=== PATIENT | male | born 1970 | race Caucasian/White ===

== ENCOUNTER 2018-05-30 18:27 | Emergency (ER) | payer MEDICARE, OTHER ==
[2018-05-30 18:33] VITALS: TEMP 98
--- NOTE | 2018-05-30 19:11 | ED ---
General Adult HPI <RonSheldon - Last Filed: 05/30/18 20:37> - General Source: patient, RN notes reviewed Mode of arrival: ambulatory Limitations: no limitations <Malena Johnson - Last Filed: 05/30/18 21:26> - General Chief complaint: Wound/Laceration Stated complaint: fall, facial injury - History of Present Illness Initial comments: Patient is a 47-year-old male who presents to the emergency department with complaint of facial lacerations after tripping and hitting his face on a table at 4 or 5 pm today. Denies loss of consciousness or blood thinner use. Denies additional injuries. He does not know when his last tetanus vaccination was done. Patient denies any recent fever, chills, shortness of breath, chest pain, neck pain, back pain, abdominal pain, nausea or vomiting, numbness or tingling, headaches or visual changes, or any other complaints. (Malena Johnson) - Related Data Home Medications Medication Instructions Recorded Confirmed Benztropine Mesylate [Cogentin] 1 mg PO DAILY 02/19/14 02/20/14 Cetirizine HCl [Zyrtec] 10 mg PO AC-SUPPER 02/19/14 02/20/14 Citalopram Hydrobromide [CeleXA] 20 mg PO AC-SUPPER 02/19/14 02/20/14 Diphenox-Atrop 2.5-0.025 mg 1 tab PO HS PRN 02/19/14 02/19/14 [Lomotil] Divalproex ER [Depakote ER] 1,000 mg PO AC-SUPPER 02/19/14 02/20/14 Losartan/Hydrochlorothiazide 1 each PO DAILY 02/19/14 02/20/14 [Losartan-Hctz 100-12.5 mg Tab] Melatonin 1 mg PO HS 02/19/14 02/20/14 Omeprazole 40 mg PO BID 02/19/14 02/20/14 risperiDONE 3 mg PO AC-SUPPER 02/19/14 02/20/14 Allergies Allergy/AdvReac Type Severity Reaction Status Date / Time acetaminophen Allergy Rash/Hives Verified 05/30/18 18:31 [From Darvocet-N] hydrocodone bitartrate Allergy Rash/Hives Verified 05/30/18 18:31 [From Vicodin] propoxyphene napsylate Allergy Rash/Hives Verified 05/30/18 18:31 [From Darvocet-N] Review of Systems ROS Other: All systems not noted in ROS Statement are negative. <Sheldon Velasquez - Last Filed: 05/30/18 20:37> ROS Other: All systems not noted in ROS Statement are negative. <Malena Johnson - Last Filed: 05/30/18 21:26> ROS Statement: Those systems with pertinent positive or pertinent negative responses have been documented in the HPI. Past Medical History Past Medical History: GERD/Reflux, Hypertension, Sleep Apnea/CPAP/BIPAP History of Any Multi-Drug Resistant Organisms: None Reported Past Surgical History: Orthopedic Surgery Additional Past Surgical History / Comment(s): lt hip and knee surgery as a child Past Anesthesia/Blood Transfusion Reactions: No Reported Reaction Past Psychological History: Bipolar Smoking Status: Former smoker Past Alcohol Use History: None Reported Past Drug Use History: None Reported <Malena Johnson - Last Filed: 05/30/18 21:26> General Exam Limitations: no limitations General appearance: alert, in no apparent distress Head exam: Present: other (Two lacerations to upper lip. Avulsion of nose tip.) Eye exam: Present: normal appearance, PERRL, EOMI ENT exam: Present: normal oropharynx, TM's normal bilaterally, normal external ear exam, other (No septal hematoma.) Neck exam: Present: normal inspection, full ROM. Absent: tenderness Respiratory exam: Present: normal lung sounds bilaterally. Absent: wheezes, rales, rhonchi Cardiovascular Exam: Present: regular rate, normal rhythm Extremities exam: Present: other (Upper and lower extremities' strength 5/5.) Back exam: Absent: tenderness Neurological exam: Present: alert, oriented X3, CN II-XII intact <Malena Johnson - Last Filed: 05/30/18 21:26> Vital Signs 05/30/18 18:31 Temperature 98 F Pulse Rate 105 H Respiratory 18 Rate Blood Pressure 132/93 O2 Sat by Pulse 96 Oximetry Medical Decision Making <Sheldon Velasquez - Last Filed: 05/30/18 20:37> <Malena Johnson - Last Filed: 05/30/18 21:26> - Medical Decision Making Medical decision making; a 47-year-old male reports that he has slip and fall and landed on a glass table with his nose. He states the glass table did not break. The patient has multiple lacerations with a flap-type laceration, possible avulsed tissue on the tip of his nose as well as laceration through the vermilion border to the right side of the columella. Teeth appear to be intact. CAT scan of the facial bones negative. The patient will receive 1 g of Ancef IM and tetanus updated. The case discussed with Dr. Tobar at [facility]. she accepts the patient for evaluation and treatment by ENT or plastics. Dr. Velasquez (Sheldon Velasquez) Facial bone CT is negative for fracture. Given ibuprofen here for pain. Wounds were injected with lidocaine and irrigated. Case discussed in detail with attending physician Dr. Velasquez. (Malena Johnson) Disposition <Sheldon Velasquez - Last Filed: 05/30/18 20:37> Is patient prescribed a controlled substance at d/c from ED?: No - Out of Hospital Transfer - Req. Specs Out of Hospital Transfer - Requested Specifics: Other Emergency Center ([facility]) <Malena Johnson - Last Filed: 05/30/18 21:26> Clinical Impression: Laceration Disposition: OTHER INSTITUTION NOT DEFINED Condition: Good Referrals: [facility] [Primary Care Provider] - 1-2 days
[2018-05-30] MEDS ORDERED: DIPH,PERTUS(ACELL)TETVAC-LF 0.5 ML VIAL IM ONE (19:12)
--- NOTE | 2018-05-30 19:26 | CT ---
EXAMINATION TYPE: CT facial bones wo con DATE OF EXAM: 05/30/2018 COMPARISON: None HISTORY: Fell hitting nose on table. CT DLP: 564.3 mGycm Automated exposure control for dose reduction was used. TECHNIQUE: CT scan of the sinuses is performed without contrast, axial images are obtained, coronal r eformatted images are also reviewed. FINDINGS: The orbital margins are intact. There is no evidence of a blowout fracture. There is minor mucosal thickening at the floor of the maxillary sinuses. There is bilateral patency of the ostia met al complex. The zygomatic arches are intact. Nasal bone appears intact. Maxilla is intact. The mandib ular ring is intact. Temporal bones appear normal. IMPRESSION: Negative CT scan of the facial bones. No fracture seen. Minimal mucosal thickening in the maxillary sinuses consistent with mild inflammatory disease.
[2018-05-30] MEDS ORDERED: LIDOCAINE 1% INJ 10MG/ML (20 ML MDV) SQ STA (19:30)
[2018-05-30] MEDS ORDERED: IBUPROFEN 600 MG TAB PO STA (19:30)
[2018-05-30] MEDS ORDERED: ceFAZolin 1,000 MG VIAL IM STA (20:30)
[2018-05-30 21:40] VITALS: BP 129/78; PULSE 98; RESP 16
== END 2018-05-30 21:40 | disposition short-term general hospital (02) ==
LOC: EC 18:27
DX: S01.511A Laceration without foreign body of lip, initial encounter (principal); S01.20XA Unspecified open wound of nose, initial encounter; I10 Essential (primary) hypertension; K21.9 Gastro-esophageal reflux disease without esophagitis; G47.30 Sleep apnea, unspecified; F31.9 Bipolar disorder, unspecified; Z87.891 Personal history of nicotine dependence; Z88.5 Allergy status to narcotic agent; Z88.6 Allergy status to analgesic agent; Z79.899 Other long term (current) drug therapy; Z23 Encounter for immunization; Z99.89 Dependence on other enabling machines and devices; W01.190A Fall on same level from slipping, tripping and stumbling with subsequent striking against furniture, initial encounter; Y92.009 Unspecified place in unspecified non-institutional (private) residence as the place of occurrence of the external cause
CPT/HCPCS: 70486; 90715; 99284; 96372; 90471; J0690; J2001

== ENCOUNTER 2019-03-25 16:09 | Inpatient (IN) | payer MEDICARE, OTHER ==
--- NOTE | 2019-03-25 16:45 | ED ---
Abdominal Pain HPI - General Source: patient Mode of arrival: ambulatory Limitations: no limitations <Jamila Badillo - Last Filed: 03/25/19 19:59> <Connie Mendez - Last Filed: 03/26/19 23:29> - General Chief Complaint: Abdominal Pain Stated Complaint: hernia pain Time Seen by Provider: 03/25/19 16:23 - History of Present Illness Initial Comments: 48-year-old male presenting today for chief complaint of right inguinal pain. Patient states about a week ago he lifted something heavy at work any experiencing onset of right groin pain. Patient states at times at hernia was smaller then enlarged again causing right inguinal pain. Patient states at time it causes his right testicle to swelling, denies testicular pain or current swelling. Patient denies fevers. Patient states he usually has daily bowel movements however has not had one since Monday he states prior to Monday he had 3 days of diarrhea. Patient denies vomiting, fever. When pain persisted today he was concerned and presented to the ER. He states his sister told him he had what she thought was a hernia. Remaining ROS (-). (Jamila Badillo) - Related Data Home Medications Medication Instructions Recorded Confirmed Benztropine Mesylate [Cogentin] 1 mg PO DAILY 02/19/14 03/25/19 Citalopram Hydrobromide [CeleXA] 20 mg PO AC-SUPPER 02/19/14 03/25/19 Divalproex ER [Depakote ER] 500 mg PO AC-SUPPER 02/19/14 03/25/19 Melatonin 1 mg PO HS 02/19/14 03/25/19 Omeprazole 40 mg PO DAILY 02/19/14 03/25/19 risperiDONE 3 mg PO AC-SUPPER 02/19/14 03/25/19 Cholecalciferol [Vitamin D3 (25 5,000 unit PO DAILY 03/25/19 03/25/19 Mcg = 1000 Iu)] Divalproex ER [Depakote ER] 250 mg PO HS 03/25/19 03/25/19 Docusate [Colace] 100 mg PO DAILY PRN 03/25/19 03/25/19 Ibuprofen [Motrin] 400 mg PO Q4H PRN 03/25/19 03/25/19 Lisinopril [Zestril] 10 mg PO DAILY 03/25/19 03/25/19 Loratadine [Claritin] 10 mg PO DAILY 03/25/19 03/25/19 Allergies Allergy/AdvReac Type Severity Reaction Status Date / Time acetaminophen Allergy Rash/Hives Verified 03/25/19 18:57 [From Darvocet-N] hydrocodone bitartrate Allergy Rash/Hives Verified 03/25/19 18:57 [From Vicodin] propoxyphene napsylate Allergy Rash/Hives Verified 03/25/19 18:57 [From Darvocet-N] Review of Systems ROS Other: All systems not noted in ROS Statement are negative. <Jamila Badillo - Last Filed: 03/25/19 19:59> ROS Other: All systems not noted in ROS Statement are negative. <Connie Mendez - Last Filed: 03/26/19 23:29> ROS Statement: Those systems with pertinent positive or pertinent negative responses have been documented in the HPI. Past Medical History Past Medical History: GERD/Reflux, Hypertension, Sleep Apnea/CPAP/BIPAP History of Any Multi-Drug Resistant Organisms: None Reported Past Surgical History: Orthopedic Surgery Additional Past Surgical History / Comment(s): lt hip and knee surgery as a child Past Anesthesia/Blood Transfusion Reactions: No Reported Reaction Past Psychological History: Bipolar Smoking Status: Former smoker Past Alcohol Use History: None Reported Past Drug Use History: None Reported <Jamila Badillo - Last Filed: 03/25/19 19:59> General Exam Limitations: no limitations <Jamila Badillo - Last Filed: 03/25/19 19:59> - General Exam Comments Initial Comments: General: The patient is awake and alert, in no distress Eye: Pupils are equal, round and reactive to light, extra-ocular movements are intact. No nystagmus. There is normal conjunctiva bilaterally. No signs of icterus. Ears, nose, mouth and throat: There are moist mucous membranes and no oral lesions. Neck: The neck is supple, there is no tenderness or JVD. Cardiovascular: There is a regular rate and rhythm. No murmur, rub or gallop is appreciated. Respiratory: Lungs are clear to auscultation, respirations are non-labored, breath sounds are equal. No wheezes, stridor, rales, or rhonchi. Gastrointestinal: Soft, non-distended, non-tender abdomen without masses or organomegaly noted. Very large right inguinal hernia appears on inguinal exam no definitive indirect vs direct was able to be deciphered.Unable to reduce the hernia. No testicular swelling. Musculoskeletal: Normal ROM, no tenderness. Strength 5/5. Sensation intact. Radial pulses equal bilaterally 2+. Neurological: A&O x 3. CN II-XII intact grossly, There are no obvious motor or sensory deficits. Coordination appears grossly intact. Speech is normal. Skin: Skin is warm and dry and no rashes or lesions are noted. Psychiatric: Cooperative, appropriate mood & affect, normal judgment. (Jamila Badillo) Course Vital Signs 03/25/19 03/25/19 03/25/19 16:17 18:15 19:16 Temperature 98.9 F 99.0 F 97.9 F Pulse Rate 80 67 70 Respiratory 18 17 18 Rate Blood Pressure 159/97 159/101 155/105 O2 Sat by Pulse 96 99 98 Oximetry 03/25/19 19:41 Temperature Pulse Rate 80 Respiratory 18 Rate Blood Pressure 150/90 O2 Sat by Pulse 99 Oximetry Medical Decision Making - Lab Data Result diagrams: 03/25/19 17:00 03/25/19 17:00 <Jamila Badillo - Last Filed: 03/25/19 19:59> - Lab Data Result diagrams: 03/25/19 17:00 03/25/19 17:00 <Connie Mendez - Last Filed: 03/26/19 23:29> - Medical Decision Making 48-year-old male presenting today for chief complaint of right inguinal pain. Evidence of a bulging area of right groin on physical examination however no jugular palpable intra-articular return to in the inguinal canal there is a defect palpable. However no distinct reducible hernia. However the patient's discomfort CT abdomen and pelvis was obtained revealing an incarcerated hernia with small bowel. patient has had changes in BM. Lactic acid WNL. Patient pain persistent. Patient evaluated in person with attending Dr. Mendez. she consulted director selection and administration surgeon Dr. Yuan who recommended admission on IV abx, fluids and pain control. Patient agreeable to admission. (Jamila Badillo) I was available for consultation in the emergency department. The history and physical exam were done by the midlevel provider. I was consulted for this patients care. I reviewed the case with the midlevel provider and based on their presentation of the patient, I agree with the assessment, medical decision making and plan of care as documented. I discussed the case with Dr. Yuan who accepted admission. Chart was dictated using lark dictation software. Attempts were made to correct any dictation errors however some typographical errors may persist. (Connie Mendez) - Lab Data Lab Results 03/25/19 03/25/19 03/25/19 Range/Units 17:00 17:00 17:55 WBC 10.8 H (3.8-10.6) k/uL RBC 5.04 (4.30-5.90) m/uL Hgb 15.0 (13.0-17.5) gm/dL Hct 44.7 (39.0-53.0) % MCV 88.8 (80.0-100.0) fL MCH 29.8 (25.0-35.0) pg MCHC 33.6 (31.0-37.0) g/dL RDW 12.6 (11.5-15.5) % Plt Count 291 (150-450) k/uL Neutrophils % 81 % Lymphocytes % 13 % Monocytes % 4 % Eosinophils % 1 % Basophils % 0 % Neutrophils # 8.7 H (1.3-7.7) k/uL Lymphocytes # 1.4 (1.0-4.8) k/uL Monocytes # 0.4 (0-1.0) k/uL Eosinophils # 0.1 (0-0.7) k/uL Basophils # 0.0 (0-0.2) k/uL Sodium 139 (137-145) mmol/L Potassium 4.4 (3.5-5.1) mmol/L Chloride 105 (98-107) mmol/L Carbon Dioxide 27 (22-30) mmol/L Anion Gap 7 mmol/L BUN 17 (9-20) mg/dL Creatinine 0.75 (0.66-1.25) mg/dL Est GFR (CKD-EPI)AfAm >90 (>60 ml/min/1.73 sqM) Est GFR (CKD-EPI)NonAf >90 (>60 ml/min/1.73 sqM) Glucose 97 (74-99) mg/dL Plasma Lactic Acid John (0.7-2.0) mmol/L Calcium 9.5 (8.4-10.2) mg/dL Total Bilirubin 0.7 (0.2-1.3) mg/dL AST 18 (17-59) U/L ALT 19 (4-49) U/L Alkaline Phosphatase 56 (38-126) U/L Total Protein 7.4 (6.3-8.2) g/dL Albumin 4.4 (3.5-5.0) g/dL Urine Color Colorless Urine Appearance Clear (Clear) Urine pH 7.0 (5.0-8.0) Ur Specific [place] 1.024 (1.001-1.035) Urine Protein Negative (Negative) Urine Glucose (UA) Negative (Negative) Urine Ketones Negative (Negative) Urine Blood Negative (Negative) Urine Nitrite Negative (Negative) Urine Bilirubin Negative (Negative) Urine Urobilinogen <2.0 (<2.0) mg/dL Ur Leukocyte Esterase Negative (Negative) 03/25/19 Range/Units 17:55 WBC (3.8-10.6) k/uL RBC (4.30-5.90) m/uL Hgb (13.0-17.5) gm/dL Hct (39.0-53.0) % MCV (80.0-100.0) fL MCH (25.0-35.0) pg MCHC (31.0-37.0) g/dL RDW (11.5-15.5) % Plt Count (150-450) k/uL Neutrophils % % Lymphocytes % % Monocytes % % Eosinophils % % Basophils % % Neutrophils # (1.3-7.7) k/uL Lymphocytes # (1.0-4.8) k/uL Monocytes # (0-1.0) k/uL Eosinophils # (0-0.7) k/uL Basophils # (0-0.2) k/uL Sodium (137-145) mmol/L Potassium (3.5-5.1) mmol/L Chloride (98-107) mmol/L Carbon Dioxide (22-30) mmol/L Anion Gap mmol/L BUN (9-20) mg/dL Creatinine (0.66-1.25) mg/dL Est GFR (CKD-EPI)AfAm (>60 ml/min/1.73 sqM) Est GFR (CKD-EPI)NonAf (>60 ml/min/1.73 sqM) Glucose (74-99) mg/dL Plasma Lactic Acid John 0.7 (0.7-2.0) mmol/L Calcium (8.4-10.2) mg/dL Total Bilirubin (0.2-1.3) mg/dL AST (17-59) U/L ALT (4-49) U/L Alkaline Phosphatase (38-126) U/L Total Protein (6.3-8.2) g/dL Albumin (3.5-5.0) g/dL Urine Color Urine Appearance (Clear) Urine pH (5.0-8.0) Ur Specific [place] (1.001-1.035) Urine Protein (Negative) Urine Glucose (UA) (Negative) Urine Ketones (Negative) Urine Blood (Negative) Urine Nitrite (Negative) Urine Bilirubin (Negative) Urine Urobilinogen (<2.0) mg/dL Ur Leukocyte Esterase (Negative) Disposition Is patient prescribed a controlled substance at d/c from ED?: No Time of Disposition: 19:47 Decision to Admit Reason: Admit from EC Decision Date: 03/25/19 Decision Time: 18:47 <Jamila Badillo - Last Filed: 03/25/19 19:59> <Connie Mendez - Last Filed: 03/26/19 23:29> Clinical Impression: Incarcerated inguinal hernia, Right groin pain Disposition: ADMITTED IP TO THIS [facility] Condition: Stable
[2019-03-25 17:11] LABS: Basophils % (A) 0 %; Eosinophils # (A) 0.1 k/uL (0-0.7); Eosinophils % (A) 1 %; HCT 44.7 % (39.0-53.0); Lymphocytes # (A) 1.4 k/uL (1.0-4.8); Lymphocytes % (A) 13 %; MCH 29.8 pg (25.0-35.0); MCHC 33.6 g/dL (31.0-37.0); MCV 88.8 fL (80.0-100.0); Mean Platelet Volume 8.2; Monocytes # (A) 0.4 k/uL (0-1.0); Monocytes % (A) 4 %; Neutrophils # (A) 8.7 k/uL (1.3-7.7); Neutrophils % (A) 81 %; Platelet Count 291 k/uL (150-450); RBC 5.04 m/uL (4.30-5.90); RDW 12.6 % (11.5-15.5); WBC 10.8 k/uL (3.8-10.6)
[2019-03-25 17:21] LABS: ALT 19 U/L (4-49); AST 18 U/L (17-59); African American GFR (CKD) >90 (>60 ml/min/1.73 sqM); Albumin 4.4 g/dL (3.5-5.0); Alkaline Phosphatase 56 U/L (38-126); Anion Gap 7 mmol/L; Blood Urea Nitrogen 17 mg/dL (9-20); Calcium 9.5 mg/dL (8.4-10.2); Carbon Dioxide 27 mmol/L (22-30); Chloride 105 mmol/L (98-107); Glucose 97 mg/dL (74-99); Non-African American GFR(CKD) >90 (>60 ml/min/1.73 sqM); Potassium 4.4 mmol/L (3.5-5.1); Sodium 139 mmol/L (137-145); Total Bilirubin 0.7 mg/dL (0.2-1.3); Total Protein 7.4 g/dL (6.3-8.2)
--- NOTE | 2019-03-25 17:48 | CT ---
EXAMINATION TYPE: CT abdomen pelvis w con DATE OF EXAM: 03/25/2019 COMPARISON: None HISTORY: Right inguinal hernia. CT DLP: 1367.6 mGycm Automated exposure control for dose reduction was used. CONTRAST: Performed with IV Contrast, patient injected with 100 mL of Isovue 300. Multiple axial sections were obtained from the diaphragm to the floor the pelvis with intravenous con trast. There is minimal subsegmental atelectasis at the posterior lung bases. There is no pleural effusion. There is small hiatal hernia. There is no pericardial effusion. Liver spleen pancreas gallbladder appear normal. Bile ducts are not dilated. There is no adrenal mass. Kidneys show satisfactory contrast opacification. There is no hydronephrosi s. Ureters are not dilated. There is normal excretion on the delayed images. There is no retroperiton eal adenopathy. Bladder distends smoothly. There is right inguinal hernia that contains distal small bowel. I see no sign of a bowel obstruction. There are no dilated loops. The appendix is within serg l limits. There is no free air. There is no ascites. There is no mesenteric edema. Lumbar spine is in tact. Bony pelvis is intact. There is mild lumbar levoscoliosis. IMPRESSION: Mild scarring or subsegmental atelectasis at the lung bases. Incarcerated right inguinal hernia containing small bowel. No sign of a mechanical bowel obstruction.
[2019-03-25] MEDS ORDERED: SODIUM CHLORIDE 0.9% 1,000 ML IV ONE (17:52)
[2019-03-25] MEDS ORDERED: MORPHINE SULFATE 4 MG/ML SYRINGE IVP STA (17:52)
[2019-03-25] MEDS ORDERED: ONDANSETRON 4 MG/2 ML VIAL IVP PRN (17:53)
[2019-03-25] MEDS ORDERED: NALOXONE 0.4 MG/ML 1 ML VIAL IV PRN (17:53)
[2019-03-25 18:20] LABS: Appearance,Urine Clear (Clear); Bilirubin,Urine Negative (Negative); Blood,Urine Negative (Negative); Color,Urine Colorless; Glucose,Urine (UA) Negative (Negative); Ketones,Urine Negative (Negative); Leukocyte Esterase,Urine Negative (Negative); Nitrite,Urine Negative (Negative); Protein,Urine Negative (Negative); Specific Gravity,Urine 1.024 (1.001-1.035); Urobilinogen,Urine <2.0 mg/dL (<2.0)
[2019-03-25] MEDS ORDERED: PIPERACILLIN-TAZOBACTAM 3.375 GM in SODIUM CHLORIDE 0.9% 100 ML IVPB STA (18:35)
[2019-03-25] MEDS: SODIUM CHLORIDE 0.9% 1,000 ML IV SCH (19:12)
[2019-03-25] MEDS ORDERED: hydrALAZINE HCL 20 MG/ML 1 ML VIAL IVP STA (19:14)
[2019-03-25] MEDS: MORPHINE SULFATE 4 MG/ML SYRINGE IV PRN (23:47)
[2019-03-26] MEDS: SODIUM CHLORIDE 0.9% 1,000 ML IV SCH ×3 (06:30→22:12)
[2019-03-26] MEDS: MORPHINE SULFATE 4 MG/ML SYRINGE IV PRN (08:19)
[2019-03-26] MEDS: HYDROmorphone 0.5 MG/0.5 ML SYRINGE IVP PRN (13:01)
--- NOTE | 2019-03-26 13:37 | P.GSHP ---
<Amie Thacker A - Last Filed: 03/26/19 13:28> History of Present Illness H&P Date: 03/26/19 Chief Complaint: abdominal pain CHIEF COMPLAINT: abdominal pain HISTORY OF PRESENT ILLNESS: 48-year-old male who presents to emergency room with chief complaint of lower abdominal pain. Patient reports he has a known history of a hernia to his right groin. He reports he was at work lifting something heavy and suddenly felt severe pain to his right groin. patient examined at the bedside with Dr. Yuan. Patient continues to complain of pain in his right groin. Denies nausea or vomiting. PAST MEDICAL HISTORY: See list. PAST SURGICAL HISTORY: See list. SOCIAL HISTORY: No illicit drug use. REVIEW OF SYSTEMS: CONSTITUTIONAL: Denies fever or chills. HEENT: Denies blurred vision, vision changes, or eye pain. Denies hemoptysis CARDIOVASCULAR: Denies chest pain or pressure. RESPIRATORY: No shortness of breath. GASTROINTESTINAL: Refer to [facility] for pertinent findings HEMATOLOGIC: Denies bleeding disorders. GENITOURINARY: Denies any blood in urine. SKIN: Denies pruitis. Denies rash. PHYSICAL EXAM: VITAL SIGNS: Reviewed. GENERAL: Well-developed in no acute distress. HEENT: No sclera icterus. Extraocular movements grossly intact. Moist buccal mucosa. Head is atraumatic, normocephalic. ABDOMEN: Soft. Nondistended. Large right inguinal hernia, now reducible by Dr. Yuan at bedside NEUROLOGIC: Alert and oriented. Cranial nerves II through XII grossly intact. LABORATORY DATA: WBC 10.8. Hemoglobin 15.0. Lactic acid 0.7. IMAGING: CT abdomen and pelvis: Incarcerated right inguinal hernia containing small bowel. No sign of mechanical bowel obstruction. ASSESSMENT: 1. Incarcerated right inguinal hernia PLAN: clear liquid diet. Nothing by mouth at midnight Consult Dr. Sandoval for medical management Patient to undergo Hibiclens bath tonight and tomorrow morning Patient scheduled for repair of incarcerated right inguinal hernia tomorrow Nurse practitioner note has been reviewed by physician. Signing provider agrees with the documented findings, assessment, and plan of care. Past Medical History Past Medical History: GERD/Reflux, Hypertension, Sleep Apnea/CPAP/BIPAP History of Any Multi-Drug Resistant Organisms: None Reported Past Surgical History: Orthopedic Surgery Additional Past Surgical History / Comment(s): lt hip and knee surgery as a chi ld Past Anesthesia/Blood Transfusion Reactions: No Reported Reaction Past Psychological History: Bipolar Smoking Status: Former smoker Past Alcohol Use History: None Reported Past Drug Use History: None Reported Medications and Allergies Home Medications Medication Instructions Recorded Confirmed Type Benztropine Mesylate [Cogentin] 1 mg PO DAILY 02/19/14 03/25/19 History Citalopram Hydrobromide [CeleXA] 20 mg PO AC-SUPPER 02/19/14 03/25/19 History Divalproex ER [Depakote ER] 500 mg PO AC-SUPPER 02/19/14 03/25/19 History RX: Melatonin 1 mg PO HS 02/19/14 03/25/19 History RX: Omeprazole 40 mg PO DAILY 02/19/14 03/25/19 History RX: risperiDONE 3 mg PO AC-SUPPER 02/19/14 03/25/19 History Cholecalciferol [Vitamin D3 (25 5,000 unit PO DAILY 03/25/19 03/25/19 History Mcg = 1000 Iu)] Divalproex ER [Depakote ER] 250 mg PO HS 03/25/19 03/25/19 History Docusate [Colace] 100 mg PO DAILY PRN 03/25/19 03/25/19 History Ibuprofen [Motrin] 400 mg PO Q4H PRN 03/25/19 03/25/19 History Lisinopril [Zestril] 10 mg PO DAILY 03/25/19 03/25/19 History Loratadine [Claritin] 10 mg PO DAILY 03/25/19 03/25/19 History Allergies Allergy/AdvReac Type Severity Reaction Status Date / Time acetaminophen Allergy Rash/Hives Verified 03/27/19 12:00 [From Darvocet-N] hydrocodone bitartrate Allergy Rash/Hives Verified 03/27/19 12:00 [From Vicodin] propoxyphene napsylate Allergy Rash/Hives Verified 03/27/19 12:00 [From Darvocet-N] Surgical - Exam Vital Signs Temp Pulse Resp BP Pulse Ox 98.9 F 80 18 159/97 96 03/25/19 16:17 03/25/19 16:17 03/25/19 16:17 03/25/19 16:17 03/25/19 16:17 Results - Labs 03/25/19 17:00 03/25/19 17:00 Abnormal Lab Results - Last 24 Hours (Table) 03/25/19 Range/Units 17:00 WBC 10.8 H (3.8-10.6) k/uL Neutrophils # 8.7 H (1.3-7.7) k/uL Diabetes panel 03/25/19 Range/Units 17:00 Sodium 139 (137-145) mmol/L Potassium 4.4 (3.5-5.1) mmol/L Chloride 105 (98-107) mmol/L Carbon Dioxide 27 (22-30) mmol/L BUN 17 (9-20) mg/dL Creatinine 0.75 (0.66-1.25) mg/dL Glucose 97 (74-99) mg/dL Calcium 9.5 (8.4-10.2) mg/dL AST 18 (17-59) U/L ALT 19 (4-49) U/L Alkaline Phosphatase 56 (38-126) U/L Total Protein 7.4 (6.3-8.2) g/dL Albumin 4.4 (3.5-5.0) g/dL Calcium panel 03/25/19 Range/Units 17:00 Calcium 9.5 (8.4-10.2) mg/dL Albumin 4.4 (3.5-5.0) g/dL Pituitary panel 03/25/19 Range/Units 17:00 Sodium 139 (137-145) mmol/L Potassium 4.4 (3.5-5.1) mmol/L Chloride 105 (98-107) mmol/L Carbon Dioxide 27 (22-30) mmol/L BUN 17 (9-20) mg/dL Creatinine 0.75 (0.66-1.25) mg/dL Glucose 97 (74-99) mg/dL Calcium 9.5 (8.4-10.2) mg/dL Adrenal panel 03/25/19 Range/Units 17:00 Sodium 139 (137-145) mmol/L Potassium 4.4 (3.5-5.1) mmol/L Chloride 105 (98-107) mmol/L Carbon Dioxide 27 (22-30) mmol/L BUN 17 (9-20) mg/dL Creatinine 0.75 (0.66-1.25) mg/dL Glucose 97 (74-99) mg/dL Calcium 9.5 (8.4-10.2) mg/dL Total Bilirubin 0.7 (0.2-1.3) mg/dL AST 18 (17-59) U/L ALT 19 (4-49) U/L Alkaline Phosphatase 56 (38-126) U/L Total Protein 7.4 (6.3-8.2) g/dL Albumin 4.4 (3.5-5.0) g/dL <Jono Yuan - Last Filed: 03/27/19 12:42> Surgical - Exam Vital Signs Temp Pulse Resp BP Pulse Ox 98.9 F 80 18 159/97 96 03/25/19 16:17 03/25/19 16:17 03/25/19 16:17 03/25/19 16:17 03/25/19 16:17 Results - Labs 03/27/19 09:10 03/27/19 09:10 Abnormal Lab Results - Last 24 Hours (Table) 03/27/19 Range/Units 09:10 BUN 8 L (9-20) mg/dL Diabetes panel 03/27/19 Range/Units 09:10 Sodium 138 (137-145) mmol/L Potassium 4.1 (3.5-5.1) mmol/L Chloride 106 (98-107) mmol/L Carbon Dioxide 24 (22-30) mmol/L BUN 8 L (9-20) mg/dL Creatinine 0.69 (0.66-1.25) mg/dL Glucose 85 (74-99) mg/dL Calcium 8.5 (8.4-10.2) mg/dL Calcium panel 03/27/19 Range/Units 09:10 Calcium 8.5 (8.4-10.2) mg/dL Pituitary panel 03/27/19 Range/Units 09:10 Sodium 138 (137-145) mmol/L Potassium 4.1 (3.5-5.1) mmol/L Chloride 106 (98-107) mmol/L Carbon Dioxide 24 (22-30) mmol/L BUN 8 L (9-20) mg/dL Creatinine 0.69 (0.66-1.25) mg/dL Glucose 85 (74-99) mg/dL Calcium 8.5 (8.4-10.2) mg/dL Adrenal panel 03/27/19 Range/Units 09:10 Sodium 138 (137-145) mmol/L Potassium 4.1 (3.5-5.1) mmol/L Chloride 106 (98-107) mmol/L Carbon Dioxide 24 (22-30) mmol/L BUN 8 L (9-20) mg/dL Creatinine 0.69 (0.66-1.25) mg/dL Glucose 85 (74-99) mg/dL Calcium 8.5 (8.4-10.2) mg/dL Assessment and Plan Plan: (we'll perform repair of right inguinal hernia in the a.m.
[2019-03-26] MEDS: BENZTROPINE MESYLATE 1 MG TAB PO SCH (15:21)
[2019-03-26] MEDS: HEPARIN SODIUM,PORCINE 5,000 UNIT/ML 1 ML VIAL SQ SCH (15:21)
[2019-03-26] MEDS: LISINOPRIL 10 MG TAB PO SCH (15:21)
[2019-03-26] MEDS: risperiDONE 1 MG TAB PO SCH (16:50)
[2019-03-26] MEDS: CITALOPRAM HYDROBROMIDE 20 MG TAB PO SCH (16:50)
[2019-03-26] MEDS: DIVALPROEX ER 500 MG TAB.ER.24H PO SCH (16:50)
--- NOTE | 2019-03-26 18:46 | CONS ---
CONSULTATION REASON FOR CONSULTATION: Advice regarding hypertension and multiple medical issues, requested by Dr. Yuan. HISTORY OF PRESENT ILLNESS: This 48-year-old gentleman with a past medical history of GERD, hypertension, sleep apnea, being followed by [facility] in the outpatient setting was admitted with abdominal pain. The patient had right inguinal pain. The pain was increasing over the last 1 week. The patient came to [facility] and was admitted for further evaluation and treatment. An abdominal pelvis CAT scan was done which showed evidence of incarcerated right inguinal hernia containing small bowel and the patient was admitted for further evaluation. Dr. Yuan's evaluation in progress at this time. There is no history of fever, rigors or chills. No history of headache, loss of consciousness, seizures. PAST MEDICAL HISTORY: Past medical history of GERD, hypertension, sleep apnea, history of bipolar. MEDICATIONS: 1. Risperdal 3 mg a.c. supper. 2. Omeprazole 40 mg daily. 3. Melatonin 1 mg q.h.s. 4. Claritin 10 mg. 5. Zestril 10 mg. 6. Motrin 400 mg q.4 p.r.n. 7. Colace 100 mg daily p.r.n. 8. Depakote ER 250 mg q.h.s., 500 mg a.c. supper. 9. Celexa 20 mg a.c. supper. 10.Vitamin D3 5000 daily. 11.Cogentin 1 mg p.o. daily. ALLERGIES: DARVOCET, VICODIN AND DARVOCET-N 100. FAMILY HISTORY: No history of heart disease or strokes in the family. SOCIAL HISTORY: Previous history of smoking. No history of current smoking or alcohol intake. REVIEW OF SYSTEMS: ENT: No diminished vision. No diminished hearing. CARDIOVASCULAR: No angina or palpitations. RESPIRATIONS: As mentioned earlier. GASTROINTESTINAL: As mentioned earlier. no dysuria. Nervous system: No numbness or weakness. Allergy/Immunology: No asthma or hayfever. MUSCULOSKELETAL as mentioned earlier. HEMATOLOGY/ONCOLOGY: No history of anemia. ENDOCRINE: No history of diabetes or hypothyroidism. CONSTITUTIONAL: As mentioned earlier. DERMATOLOGY: Negative. RHEUMATOLOGY: Negative. PSYCHIATRIC: As mentioned earlier. PHYSICAL EXAMINATION: Alert and oriented times three. Pulse 64. Blood pressure 147/88. Respirations 16, temperature 97.4, pulse ox 98% on room air. HEENT: Conjunctivae normal. Oral mucosa moist. NECK is no jugular venous distention. No carotid bruit. No lymph node enlargement. CARDIOVASCULAR: S1, S2 muffled. RESPIRATORY: Breath sounds diminished in the bases. Bilateral scattered rhonchi and crackles. ABDOMEN: Soft, nontender. Large inguinal hernia present, nontender at this time. Otherwise, bowel sounds diminished. LEGS: No edema. No swelling. NERVOUS SYSTEM: Higher functions as mentioned earlier. Moves all 4 limbs. No focal motor or sensory deficits. LYMPHATICS: No lymph nodes palpable in the neck, axillae or groin. SKIN: No ulcer, no rash and no bleeding. JOINTS: No active deforming arthropathy. LABS: WBC 10.8, hemoglobin 15. ASSESSMENT: 1. Abdominal pain with incarcerated right inguinal hernia containing small bowel. 2. Hypertension. 3. Gastroesophageal reflux disease. 4. Sleep apnea. 5. History of history of bipolar. 6. Remote history of nicotine dependence. 7. FULL CODE. RECOMMENDATIONS AND DISCUSSION: In this 48-year-old gentleman who presented with multiple complex medical issues, at this time, I recommend to continue the current medications, management and symptomatic treatment. Recommend initiate the home medications, at least the psych medication at this time and as well as continue to monitor. Proton pump inhibitors. DVT prophylaxis. We will follow the patient closely and the patient may be asked to follow up with primary physician closely after discharge. Thank you Dr. Yuan for letting us participate in the care of this patient. MMODL / IJN: [id number] /
[2019-03-26] MEDS ORDERED: SODIUM CHLORIDE 0.9% 500 ML 500 ML IV ONE (21:50)
[2019-03-26] MEDS: DIVALPROEX ER 250 MG TAB.ER.24H PO SCH (22:09)
[2019-03-26] MEDS: MELATONIN 1 MG TAB PO SCH (22:10)
[2019-03-27] MEDS ORDERED: SODIUM CHLORIDE 0.9% 500 ML 500 ML IV ONE (00:42)
[2019-03-27] MEDS: HEPARIN SODIUM,PORCINE 5,000 UNIT/ML 1 ML VIAL SQ SCH ×4 (00:57→23:56)
[2019-03-27] MEDS: SODIUM CHLORIDE 0.9% 1,000 ML IV SCH ×3 (06:06→22:19)
[2019-03-27] MEDS: LACTATED RINGERS 1,000 ML IV SCH (06:31)
[2019-03-27 07:42] LABS: Glucose,Whole Blood 89 mg/dL (75-99)
[2019-03-27] MEDS: PANTOPRAZOLE 40 MG/10 ML VIAL IVP SCH (08:02)
[2019-03-27] MEDS: BENZTROPINE MESYLATE 1 MG TAB PO SCH (08:03)
[2019-03-27] MEDS: LISINOPRIL 10 MG TAB PO SCH (08:03)
[2019-03-27] MEDS ORDERED: SODIUM CHLORIDE 0.9% 1,000 ML IV ONE (08:13)
[2019-03-27 10:00] LABS: Basophils % (A) 1 %; Eosinophils # (A) 0.1 k/uL (0-0.7); Eosinophils % (A) 1 %; HCT 41.8 % (39.0-53.0); HGB 13.6 gm/dL (13.0-17.5); Lymphocytes # (A) 1.3 k/uL (1.0-4.8); Lymphocytes % (A) 24 %; MCH 29.8 pg (25.0-35.0); MCHC 32.5 g/dL (31.0-37.0); MCV 91.7 fL (80.0-100.0); Mean Platelet Volume 8.2; Monocytes # (A) 0.3 k/uL (0-1.0); Monocytes % (A) 5 %; Neutrophils # (A) 3.6 k/uL (1.3-7.7); Neutrophils % (A) 68 %; Platelet Count 248 k/uL (150-450); RBC 4.55 m/uL (4.30-5.90); RDW 12.7 % (11.5-15.5); WBC 5.3 k/uL (3.8-10.6)
[2019-03-27 10:09] LABS: African American GFR (CKD) >90 (>60 ml/min/1.73 sqM); Anion Gap 8 mmol/L; Blood Urea Nitrogen 8 mg/dL (9-20); Calcium 8.5 mg/dL (8.4-10.2); Carbon Dioxide 24 mmol/L (22-30); Chloride 106 mmol/L (98-107); Glucose 85 mg/dL (74-99); Non-African American GFR(CKD) >90 (>60 ml/min/1.73 sqM); Potassium 4.1 mmol/L (3.5-5.1); Sodium 138 mmol/L (137-145)
[2019-03-27] MEDS ORDERED: IV FLUID CONTINUATION 800 ML IV ONE (11:54)
[2019-03-27] MEDS ORDERED: DEXAMETHASONE SOD PHOSPHATE 10 MG/ML 1 ML VIAL IV ONE (12:31)
[2019-03-27] MEDS ORDERED: ONDANSETRON 4 MG/2 ML VIAL IVP ONE ×2 (12:31→14:21)
[2019-03-27] MEDS ORDERED: LIDOCAINE 1% INJ 10MG/ML (20 ML MDV) ONE (12:51)
[2019-03-27] MEDS ORDERED: ROCURONIUM BROMIDE 10 MG/ML 10 ML VIAL IV ONE (12:51)
[2019-03-27] MEDS ORDERED: fentaNYL (PF) 50 MCG/ML 2 ML AMP ONE (12:51)
[2019-03-27] MEDS ORDERED: SUCCINYLCHOLINE CHLORIDE 100 MG/5 ML SYR IV ONE (12:51)
[2019-03-27] MEDS ORDERED: KETOROLAC 30 MG/ML 1 ML VIAL ONE (12:51)
[2019-03-27] MEDS ORDERED: NEOSTIGMINE 1 MG/ML 10 ML VIAL ONE (12:51)
[2019-03-27] MEDS ORDERED: GLYCOPYRROLATE 0.2 MG/ML 2 ML VIAL ONE (12:51)
[2019-03-27] MEDS ORDERED: PROPOFOL 10 MG/ML 20 ML VIAL IV ONE (12:51)
[2019-03-27] MEDS ORDERED: SODIUM CHLORIDE 0.9% 50 ML with ceFAZolin 2,000 MG IV ONE ×2 (13:09)
[2019-03-27] MEDS ORDERED: BUPIVACAINE (PF) 0.25% 30 ML VIAL SQ ONE ×2 (13:14→13:20)
[2019-03-27] MEDS ORDERED: LACTATED RINGERS 1,000 ML IV ONE (13:29)
--- NOTE | 2019-03-27 13:44 | P.OP ---
Date of Procedure: 03/27/19 Preoperative Diagnosis: incarcerated right inguinal hernia Postoperative Diagnosis: incarcerated right inguinal hernia Procedure(s) Performed: open repair of incarcerated right inguinal hernia Excision of right cord lipoma Anesthesia: VIRGIE Surgeon: Jono Yuan Estimated Blood Loss (ml): 5 Pathology: other (cord lipoma) Condition: stable Disposition: PACU Description of Procedure: DESCRIPTION OF PROCEDURE: The patient was placed in the supine position after receiving adequate anesthesia. Patients groin was prepped and draped in the usual sterile fashion. A standard hernia incision was made and the subcutaneous tissues were divided with electrocautery. The fascia of the external oblique was exposed. A morales the fascia was made with #15 blade. The fascia was then opened with pair of Metzenbaum scissors. A Weitlaner retractor was placed in the wound and the cord structures were grasped and dissected free from the inguinal canal. A rubber [place] drain was placed around the cord structures. The hernial sac was seen on the anterior-medial portion of the cord and this was dissected free from the cord. The hernia sac was then invaginated to the peritoneal cavity. a cord lipoma was dissected free from the cord. It was sent to pathology. Using blunt finger dissection, the preperitoneal space was dissected and then the Prolene hernial mesh plug was placed into the prepared space. The inferior leaf was expanded. The superior leaf was secured to the pubic tubercle using 2-0 Prolene suture. The lateral portion of the superior leaf was incised and cords tied and secured to the transversalis fascia using 2-0 Prolene suture. Fascia of the external oblique was then closed using #0 Vicryl suture. The [place] drain was removed. The Scarpas fascia was then closed with 3-0 Vicryl suture and skin was closed with more. The patient tolerated the procedure well.
[2019-03-27] MEDS ORDERED: HYDROmorphone 2 MG/ML 1 ML SYRINGE IVP ONE (14:10)
[2019-03-27] MEDS ORDERED: HYDROmorphone 1 MG/ML 1 ML SYRINGE IVP ONE (14:25)
[2019-03-27] MEDS: CITALOPRAM HYDROBROMIDE 20 MG TAB PO SCH (16:29)
[2019-03-27] MEDS: risperiDONE 1 MG TAB PO SCH (16:29)
[2019-03-27] MEDS: DIVALPROEX ER 500 MG TAB.ER.24H PO SCH (16:30)
--- NOTE | 2019-03-27 17:49 | PN ---
PROGRESS NOTE DATE OF SERVICE: 03/27/2019 This 48-year-old gentleman who was admitted with abdominal pain and incarcerated inguinal hernia is being closely monitored at this time. Last night the patient had a syncopal episode. The patient is unable to remember anything. Apparently the blood pressure was up to 70 and after fluid bolus the patient improved. The patient is slated to have surgery. No chest pain. No palpitations. No fever. Past medical history reviewed. REVIEW OF SYSTEMS: CARDIOVASCULAR SYSTEM: As mentioned earlier. RESPIRATORY SYSTEM: No cough, hemoptysis. GI: As mentioned earlier. : No dysuria or retention. NERVOUS SYSTEM: As mentioned earlier. CURRENT MEDICATIONS: Reviewed. They include: 1. Cogentin 1 mg p.o. daily. 2. Celexa 20 mg before supper. 3. Depakote ER 500 mg and 250 mg at bedtime. 4. Heparin 5000 units subcutaneously q.8. 5. Dilaudid. 6. Lactated Ringer's. 7. Zestril. 8. Melatonin. 9. Narcan. 10.Protonix. 11.Risperdal. PHYSICAL EXAMINATION: Patient is alert, oriented x3. Pulse is 57, blood pressure 143/82, respirations 16, temperature 97.6, pulse ox 98% on room air. HEENT: Conjunctivae normal. NECK: No jugular venous distention. CARDIOVASCULAR SYSTEM: S1, S2 muffled. RESPIRATORY SYSTEM: Breath sounds diminished at the bases. A few scattered rhonchi and crackles. ABDOMEN: Soft. Mild diffuse discomfort. No guarding or rigidity. No mass palpable. LEGS: No edema. No swelling. NERVOUS SYSTEM: No focal deficit. LABS: CBC within normal limits. Sodium 138, potassium 4.1. ASSESSMENT: 1. Abdominal pain with incarcerated right inguinal hernia containing small bowel. 2. Syncope, possible orthostatic hypotension. 3. Hypertension history. 4. Gastroesophageal reflux disease. 5. Sleep apnea. 6. History of bipolar. 7. Remote history of nicotine dependence. 8. FULL CODE. RECOMMENDATIONS AND DISCUSSION: In this 48-year-old gentleman who presented with multiple complex medical issues, we will monitor the patient closely, continue the current medications, continue with symptomatic treatment. At this time I would recommend continuing with IV fluids. Bolus has been given. I would also recommend a cardiac workup, including 2D echo, troponins and EKG also to ensure normalcy. Otherwise, we will continue to monitor. Further recommendations to follow. Prognosis guarded. MMODL / IJN: [id number] /
[2019-03-27] MEDS: HYDROmorphone 0.5 MG/0.5 ML SYRINGE IVP PRN (19:36)
[2019-03-27] MEDS: DIVALPROEX ER 250 MG TAB.ER.24H PO SCH (22:17)
[2019-03-27] MEDS: MELATONIN 1 MG TAB PO SCH (22:17)
[2019-03-28 05:21] VITALS: RESP 16
[2019-03-28] MEDS: SODIUM CHLORIDE 0.9% 1,000 ML IV SCH ×2 (05:55→15:50)
[2019-03-28] MEDS: LACTATED RINGERS 1,000 ML IV SCH (05:56)
[2019-03-28] MEDS: BENZTROPINE MESYLATE 1 MG TAB PO SCH (07:33)
[2019-03-28] MEDS: PANTOPRAZOLE 40 MG/10 ML VIAL IVP SCH (07:33)
[2019-03-28] MEDS: LISINOPRIL 10 MG TAB PO SCH (07:33)
[2019-03-28] MEDS: HEPARIN SODIUM,PORCINE 5,000 UNIT/ML 1 ML VIAL SQ SCH (07:33)
[2019-03-28] MEDS ORDERED: HYDROcodone/APAP 5-325MG 1 EACH TAB PO PRN (11:29)
[2019-03-28] MEDS ORDERED: KETOROLAC 30 MG/ML 1 ML VIAL IVP SCH (12:00)
[2019-03-28 12:57] VITALS: BP 132/83; PULSE 96; TEMP 97.6
--- NOTE | 2019-03-28 13:00 | ECHOF ---
Referral Reason:chf? MEASUREMENTS -------- HEIGHT: 185.4 cm WEIGHT: 97.1 kg BP: 132/76 RVIDd: 3.5 cm (< 3.3) IVSd: 1.1 cm (0.6 - 1.1) LVIDd: 4.2 cm (3.9 - 5.3) LVPWd: 1.1 cm (0.6 - 1.1) IVSs: 1.5 cm LVIDs: 3.1 cm LVPWs: 1.5 cm LA Diam: 3.2 cm (2.7 - 3.8) LAESV Index (A-L): 19.13 ml/m Ao Diam: 4.1 cm (2.0 - 3.7) AV Cusp: 2.6 cm (1.5 - 2.6) MV EXCURSION: 22.560 mm (> 18.000) MV EF SLOPE: 114 mm/s (70 - 150) EPSS: 0.8 cm MV E Mauro: 0.62 m/s MV DecT: 202 ms MV A Mauro: 0.71 m/s MV E/A Ratio: 0.87 RAP: 5.00 mmHg RVSP: 24.94 mmHg FINDINGS -------- Sinus rhythm. This was a technically good study. The left ventricular size is normal. There is borderline concentric left ventricular hypertrophy. Overall left ventricular systolic function is low-normal with, an EF between 50 - 55 %. The right ventricle is mildly enlarged. Normal LA size by volume 22+/-6 ml/m2. The right atrium is normal in size. Interatrial and interventricular septum intact. The aortic valve is trileaflet and appears structurally normal. The mitral valve is normal. Trace tricuspid regurgitation present. Right ventricular systolic pressure is normal at < 35 mmHg. Trace/mild (physiologic) pulmonic regurgitation. The aortic root is dilated measuring 4.1cm. Normal inferior vena cava with normal inspiratory collapse consistent with estimated right atrial pre ssure of 5 mmHg. There is no pericardial effusion. CONCLUSIONS -------- 1. Sinus rhythm. 2. This was a technically good study. 3. The left ventricular size is normal. 4. There is borderline concentric left ventricular hypertrophy. 5. Overall left ventricular systolic function is low-normal with, an EF between 50 - 55 %. 6. The right ventricle is mildly enlarged. 7. Normal LA size by volume 22+/-6 ml/m2. 8. The right atrium is normal in size. 9. Interatrial and interventricular septum intact. 10. The aortic valve is trileaflet and appears structurally normal. 11. The mitral valve is normal. 12. Trace tricuspid regurgitation present. 13. Right ventricular systolic pressure is normal at < 35 mmHg. 14. Trace/mild (physiologic) pulmonic regurgitation. 15. The aortic root is dilated measuring 4.1cm. 16. Normal inferior vena cava with normal inspiratory collapse consistent with estimated right atrial pressure of 5 mmHg. 17. There is no pericardial effusion. DIRECTOR MONEY: Phyllis Coe RDCS
--- NOTE | 2019-03-28 14:33 | P.DS ---
Providers Date of admission: 03/27/19 13:35 Expected date of discharge: 03/28/19 Attending physician: Jono Yuan Consults: 03/26/19 10:16 Consult Physician Routine Consulting Provider: Didier Sandoval Consult Reason/Comments: medical management Do you want consulting provider notified?: Yes Primary care physician: [facility] Hospital Course: 48-year-old male who presents to emergency room with chief complaint of lower abdominal pain. Patient reports he has a known history of a hernia to his right groin. He reports he was at work lifting something heavy and suddenly felt severe pain to his right groin patient underwent open repair of incarcerated right inguinal hernia and excision of right cord lipoma. Patient is doing well postoperatively without any immediate complications. He is tolerating diet without nausea or vomiting. Pain is controlled on oral medications. Vital signs are stable. He is stable for discharge home today. Please see EMR for further hospital course details. discharge diagnosis: 1. Incarcerated right inguinal hernia Nurse practitioner note has been reviewed by physician. Signing provider agrees with the documented findings, assessment, and plan of care. Patient Condition at Discharge: Stable Plan - Discharge Summary Discharge Rx Participant: No New Discharge Prescriptions: New Hydrocodone/Acetaminophen [Andrew 5-325] 1 tab PO Q6HR PRN 3 Days #12 tab PRN Reason: Pain No Action Melatonin 1 mg PO HS Divalproex ER [Depakote ER] 500 mg PO AC-SUPPER Citalopram Hydrobromide [CeleXA] 20 mg PO AC-SUPPER Benztropine Mesylate [Cogentin] 1 mg PO DAILY risperiDONE 3 mg PO AC-SUPPER Omeprazole 40 mg PO DAILY Lisinopril [Zestril] 10 mg PO DAILY Cholecalciferol [Vitamin D3 (25 Mcg = 1000 Iu)] 5,000 unit PO DAILY Ibuprofen [Motrin] 400 mg PO Q4H PRN PRN Reason: Pain Or Fever > 100.5 Divalproex ER [Depakote ER] 250 mg PO HS Loratadine [Claritin] 10 mg PO DAILY Docusate [Colace] 100 mg PO DAILY PRN PRN Reason: Constipation Discharge Medication List Benztropine Mesylate [Cogentin] 1 mg PO DAILY 02/19/14 [History] Citalopram Hydrobromide [CeleXA] 20 mg PO AC-SUPPER 02/19/14 [History] Divalproex ER [Depakote ER] 500 mg PO AC-SUPPER 02/19/14 [History] Melatonin 1 mg PO HS 02/19/14 [History] Omeprazole 40 mg PO DAILY 02/19/14 [History] risperiDONE 3 mg PO AC-SUPPER 02/19/14 [History] Cholecalciferol [Vitamin D3 (25 Mcg = 1000 Iu)] 5,000 unit PO DAILY 03/25/19 [History] Divalproex ER [Depakote ER] 250 mg PO HS 03/25/19 [History] Docusate [Colace] 100 mg PO DAILY PRN 03/25/19 [History] Ibuprofen [Motrin] 400 mg PO Q4H PRN 03/25/19 [History] Lisinopril [Zestril] 10 mg PO DAILY 03/25/19 [History] Loratadine [Claritin] 10 mg PO DAILY 03/25/19 [History] Hydrocodone/Acetaminophen [Andrew 5-325] 1 tab PO Q6HR PRN 3 Days #12 tab 03/28/19 [Rx] Follow up Appointment(s)/Referral(s): [facility], [NON-STAFF] - 1-2 Days [facility] [Primary Care Provider] - 1-2 days Jono Yuan MD [STAFF PHYSICIAN] - 1 Week Activity/Diet/Wound Care/Special Instructions: No driving while taking Andrew No lifting over 10 pounds You may shower. No soaking or tub baths Very light activity until you are reevaluated at your follow up appointment with your surgeon
--- NOTE | 2019-03-28 15:11 | P.PN ---
Subjective Progress Note Date: 03/28/19 Principal diagnosis: This is a 48-year-old male who was recently admittedwith abdominal pain and an incarcerated right inguinal hernia and underwent repair with Dr. Yuan yesterday. Patient states that he is tender with movement. Patient has been getting up to urinate. Patient is tolerating diet. No recent episodes of syncope, dizziness, or lightheadedness. Patient currently denies any chest pain, shortness of breath, or palpitations. Patient has been afebrile. Patient denies any nausea or vomiting and has been tolerating diet. Objective - Vital Signs Vital signs: Vital Signs Temp 97.6 F 03/28/19 12:56 Pulse 96 03/28/19 12:56 Resp 16 03/28/19 12:56 BP 132/83 03/28/19 12:56 Pulse Ox 95 03/28/19 12:56 Intake & Output 03/27/19 03/28/19 03/28/19 18:59 06:59 18:59 Intake Total 1930 Output Total 10 1999 999 Balance 1919 -1999 Intake: IV 850 Oral 1080 Output: Urine 1999 999 Estimated Blood Loss 10 Other: Voiding Method Toilet Toilet Urinal # Voids 4 0 4 # Bowel Movements 1 0 - Exam Gen: This is a 48-year-old male sitting up in bed in no acute distress. HEENT: Head is atraumatic, normocephalic. Pupils equal, round. Sclerae is anicteric. NECK: Supple. No JVD. No lymphadenopathy. No thyromegaly. LUNGS: Clear to auscultation. No wheezes or rhonchi. No intercostal retractions. HEART: Regular rate and rhythm. No murmur. ABDOMEN: Soft. Bowel sounds are present. No masses. mild tenderness noted on the right. EXTREMITIES: No pedal edema. No calf tenderness. NEUROLOGICAL: Patient is awake, alert and oriented x3. Cranial nerves 2 through 12 are grossly intact. - Labs CBC & Chem 7: 03/27/19 09:10 03/27/19 09:10 Assessment and Plan Assessment: abdominal pain with incarcerated right inguinal hernia containing small bowel Syncope, possible orthostatic hypotension Hypertension history Gastroesophageal reflux disease Sleep apnea history of bipolar remote history of nicotine dependence Full code Plan: Recommend to continue current medications, management, and symptomatic treatment. Will continue to follow along with surgery. Patient denies any other episodes of syncope, lightheadedness, or dizziness. discussed with the patient at length about getting up slowly and supporting the right inguinal area with position changes. Discussed with the patient about increasing activity as tolerated. Patient's troponins were negative and an echo was done showing overall left ventricular systolic function is low to normal with an EF between 50 and 55%. Further recommendations to follow.
== END 2019-03-28 15:47 | disposition home health service (06) | DRG 352 ==
LOC: EC 16:09 → 6NMEDSUR 18:32 → OBSVTOIN 03-27 13:35
PROVIDERS: ADMIT Surgery; ATTEND Surgery
PROC: 0JBC0ZZ Excision of Pelvic Region Subcutaneous Tissue and Fascia, Open Approach (ICD-10-PCS; 2019-03-27)
PROC: 0YU50JZ Supplement Right Inguinal Region with Synthetic Substitute, Open Approach (ICD-10-PCS; principal; 2019-03-27 13:45)
DX: K40.30 Unilateral inguinal hernia, with obstruction, without gangrene, not specified as recurrent (principal); R55 Syncope and collapse; D17.6 Benign lipomatous neoplasm of spermatic cord; K21.9 Gastro-esophageal reflux disease without esophagitis; I10 Essential (primary) hypertension; G47.30 Sleep apnea, unspecified; F31.9 Bipolar disorder, unspecified; Z79.899 Other long term (current) drug therapy; Z98.890 Other specified postprocedural states; Z99.89 Dependence on other enabling machines and devices; Z88.6 Allergy status to analgesic agent; Z88.5 Allergy status to narcotic agent; Z88.8 Allergy status to other drugs, medicaments and biological substances; Z87.891 Personal history of nicotine dependence; X50.0XXA Overexertion from strenuous movement or load, initial encounter; Y99.0 Civilian activity done for income or pay
CPT/HCPCS: 36415; 74177; 80048; 80053; 81003; 83605; 84484; 85025; 88304; 93005; 93306; 96361; 96365; 96375; 99285

== ENCOUNTER 2019-10-08 17:38 | Inpatient (IN) | payer MEDICARE, OTHER ==
[2019-10-08] MEDS ORDERED: SODIUM CHLORIDE 0.9% 500 ML 500 ML IV STA (18:14)
[2019-10-08 18:39] LABS: Glucose,Whole Blood 122 mg/dL (75-99)
[2019-10-08 18:46] LABS: Basophils % (A) 0 %; Eosinophils # (A) 0.2 k/uL (0-0.7); Eosinophils % (A) 3 %; HCT 45.5 % (39.0-53.0); HGB 15.1 gm/dL (13.0-17.5); Lymphocytes # (A) 1.8 k/uL (1.0-4.8); Lymphocytes % (A) 27 %; MCH 29.6 pg (25.0-35.0); MCHC 33.2 g/dL (31.0-37.0); MCV 89.1 fL (80.0-100.0); Mean Platelet Volume 8.1; Monocytes # (A) 0.4 k/uL (0-1.0); Monocytes % (A) 6 %; Neutrophils # (A) 3.9 k/uL (1.3-7.7); Neutrophils % (A) 61 %; Platelet Count 283 k/uL (150-450); RBC 5.11 m/uL (4.30-5.90); RDW 12.9 % (11.5-15.5); WBC 6.4 k/uL (3.8-10.6)
--- NOTE | 2019-10-08 18:59 | CT ---
EXAMINATION TYPE: CT brain wo con for TPA DATE OF EXAM: 10/08/2019 COMPARISON: None HISTORY: cva CT DLP: 1102 mGycm Automated exposure control for dose reduction was used. Ventricles and sulci are fairly normal for age. There is no mass effect nor midline shift. There is n o sign of intracranial hemorrhage. Calvarium is intact. The skull base is intact. IMPRESSION: Negative unenhanced head CT scan.
--- NOTE | 2019-10-08 19:03 | ED ---
General Adult HPI - General Chief complaint: Neuro Symptoms/Deficit Stated complaint: Left arm Numbness Time Seen by Provider: 10/08/19 17:40 Source: patient, RN notes reviewed, old records reviewed Mode of arrival: ambulatory Limitations: no limitations - History of Present Illness Initial comments: This a 49-year-old male who presents emergency Department stating that according to 5 this evening he had numbness in his left arm and the elbow down to his fingers. Patient initially stated that he couldn't feel things normally but it felt different than his left hand but later in the conversation he stated that the whole time he has had no feeling. Patient states he also thought it felt a little weaker to move and initially wasn't moving the hand from me but when I move the patient around he was able to move the hand touch his nose touch my fi nger touch his head. Patient denies any visual disturbance. Patient denies any speech symptoms. Patient denies any headache. Patient denies any recent trauma. Patient states he had no history of similar. - Related Data Home Medications Medication Instructions Recorded Confirmed Benztropine Mesylate [Cogentin] 1 mg PO DAILY 02/19/14 10/08/19 Citalopram Hydrobromide [CeleXA] 20 mg PO HS 02/19/14 10/08/19 Divalproex ER [Depakote ER] 500 mg PO HS 02/19/14 10/08/19 Melatonin 1 mg PO HS 02/19/14 10/08/19 Omeprazole 40 mg PO DAILY 02/19/14 10/08/19 risperiDONE 3 mg PO HS 02/19/14 10/08/19 Divalproex ER [Depakote ER] 250 mg PO HS 03/25/19 10/08/19 Docusate [Colace] 100 mg PO DAILY PRN 03/25/19 10/08/19 Lisinopril [Zestril] 10 mg PO DAILY 03/25/19 10/08/19 Loratadine [Claritin] 10 mg PO DAILY 03/25/19 10/08/19 Cholecalciferol (Vitamin D3) 125 mcg PO DAILY 10/08/19 10/08/19 [Vitamin D3] Allergies Allergy/AdvReac Type Severity Reaction Status Date / Time acetaminophen Allergy Rash/Hives/ Verified 10/08/19 19:26 [From Darvocet-N] Nausea propoxyphene napsylate Allergy Rash/Hives/ Verified 10/08/19 19:26 [From Darvocet-N] Nausea aspirin AdvReac Nausea & Verified 10/08/19 19:26 Vomiting hydrocodone bitartrate AdvReac Nausea & Verified 10/08/19 17:45 [From Vicodin] Vomiting Review of Systems ROS Statement: Those systems with pertinent positive or pertinent negative responses have been documented in the HPI. ROS Other: All systems not noted in ROS Statement are negative. Past Medical History Past Medical History: GERD/Reflux, Hypertension, Sleep Apnea/CPAP/BIPAP History of Any Multi-Drug Resistant Organisms: None Reported Past Surgical History: Orthopedic Surgery Additional Past Surgical History / Comment(s): lt hip and knee surgery as a child Past Anesthesia/Blood Transfusion Reactions: No Reported Reaction Past Psychological History: Bipolar Smoking Status: Former smoker Past Alcohol Use History: None Reported Past Drug Use History: None Reported General Exam - General Exam Comments Initial Comments: GENERAL: Patient is well-developed and well-nourished. Patient is nontoxic and well- hydrated and is in mild distress. ENT: Neck is soft and supple. No significant lymphadenopathy is noted. Oropharynx is clear. Moist mucous membranes. Neck has full range of motion without eliciting any pain. EYES: The sclera were anicteric and conjunctiva were pink and moist. Extraocular movements were intact and pupils were equal round and reactive to light. Eyelids were unremarkable. PULMONARY: Unlabored respirations. Good breath sounds bilaterally. No audible rales rh onchi or wheezing was noted. CARDIOVASCULAR: There is a regular rate and rhythm without any murmurs gallops or rubs. ABDOMEN: Soft and nontender with normal bowel sounds. No palpable organomegaly was noted. There is no palpable pulsatile mass. SKIN: Skin is clear with no lesions or rashes and otherwise unremarkable. NEUROLOGIC: Patient is alert and oriented x3. Cranial nerves II through XII are grossly intact. Patient was able to move both hands and arms fully. Patient stated that the area from the elbow to the fingertips she was unable to feel anything though he told the nurses he could feel but it felt different. Normal speech, volume and content. Symmetrical smile. MUSCULOSKELETAL: Normal extremities with adequate strength and full range of motion. LYMPHATICS: No significant lymphadenopathy is noted PSYCHIATRIC: Normal psychiatric evaluation. Limitations: no limitations Course Vital Signs 10/08/19 10/08/19 10/08/19 17:41 18:21 18:30 Temperature 99.9 F H Pulse Rate 107 H Respiratory 18 18 Rate Blood Pressure 139/90 141/94 O2 Sat by Pulse 99 95 96 Oximetry 10/08/19 20:14 Temperature Pulse Rate 82 Respiratory 18 Rate Blood Pressure 146/96 O2 Sat by Pulse 98 Oximetry Medical Decision Making - Medical Decision Making EKG shows normal sinus rhythm at 87 bpm FL interval 182 QRS is 92 QT interval 376 QTC is 452. Patient's EKG shows no ST segment elevation or depression. Code stroke was called on this patient. CT of the brain showed no acute abnormality. CT angiogram of the head and neck showed no acute abnormalities. Patient states he still had decreased sensation distal aspect of his left arm. From the elbow to his hand. I spoke with the neuro interventional is Dr. Spence and he agreed to be no intervention I spoke with because he agreed to admit the patient admitted the patient I wrote admitting orders. - Lab Data Result diagrams: 10/08/19 18:30 10/08/19 18:33 Lab Results 10/08/19 10/08/19 10/08/19 Range/Units 18:30 18:30 18:30 WBC 6.4 (3.8-10.6) k/uL RBC 5.11 (4.30-5.90) m/uL Hgb 15.1 (13.0-17.5) gm/dL Hct 45.5 (39.0-53.0) % MCV 89.1 (80.0-100.0) fL MCH 29.6 (25.0-35.0) pg MCHC 33.2 (31.0-37.0) g/dL RDW 12.9 (11.5-15.5) % Plt Count 283 (150-450) k/uL Neutrophils % 61 % Lymphocytes % 27 % Monocytes % 6 % Eosinophils % 3 % Basophils % 0 % Neutrophils # 3.9 (1.3-7.7) k/uL Lymphocytes # 1.8 (1.0-4.8) k/uL Monocytes # 0.4 (0-1.0) k/uL Eosinophils # 0.2 (0-0.7) k/uL Basophils # 0.0 (0-0.2) k/uL PT 10.0 (9.0-12.0) sec INR 1.0 (<1.2) APTT 24.0 (22.0-30.0) sec Sodium (137-145) mmol/L Potassium (3.5-5.1) mmol/L Chloride (98-107) mmol/L Carbon Dioxide (22-30) mmol/L Anion Gap mmol/L BUN (9-20) mg/dL Creatinine (0.66-1.25) mg/dL Est GFR (CKD-EPI)AfAm (>60 ml/min/1.73 sqM) Est GFR (CKD-EPI)NonAf (>60 ml/min/1.73 sqM) Glucose (74-99) mg/dL POC Glucose (mg/dL) (75-99) mg/dL POC Glu Needle Loom Tender ID Calcium (8.4-10.2) mg/dL Total Bilirubin (0.2-1.3) mg/dL AST (17-59) U/L ALT (4-49) U/L Alkaline Phosphatase (38-126) U/L Troponin I <0.012 (0.000-0.034) ng/mL Total Protein (6.3-8.2) g/dL Albumin (3.5-5.0) g/dL 10/08/19 10/08/19 Range/Units 18:33 18:37 WBC (3.8-10.6) k/uL RBC (4.30-5.90) m/uL Hgb (13.0-17.5) gm/dL Hct (39.0-53.0) % MCV (80.0-100.0) fL MCH (25.0-35.0) pg MCHC (31.0-37.0) g/dL RDW (11.5-15.5) % Plt Count (150-450) k/uL Neutrophils % % Lymphocytes % % Monocytes % % Eosinophils % % Basophils % % Neutrophils # (1.3-7.7) k/uL Lymphocytes # (1.0-4.8) k/uL Monocytes # (0-1.0) k/uL Eosinophils # (0-0.7) k/uL Basophils # (0-0.2) k/uL PT (9.0-12.0) sec INR (<1.2) APTT (22.0-30.0) sec Sodium 136 L (137-145) mmol/L Potassium 4.3 (3.5-5.1) mmol/L Chloride 103 (98-107) mmol/L Carbon Dioxide 25 (22-30) mmol/L Anion Gap 8 mmol/L BUN 15 (9-20) mg/dL Creatinine 0.72 (0.66-1.25) mg/dL Est GFR (CKD-EPI)AfAm >90 (>60 ml/min/1.73 sqM) Est GFR (CKD-EPI)NonAf >90 (>60 ml/min/1.73 sqM) Glucose 118 H (74-99) mg/dL POC Glucose (mg/dL) 122 H (75-99) mg/dL POC Glu Needle Loom Tender ID Phi Diaz Calcium 9.3 (8.4-10.2) mg/dL Total Bilirubin 0.5 (0.2-1.3) mg/dL AST 20 (17-59) U/L ALT 22 (4-49) U/L Alkaline Phosphatase 51 (38-126) U/L Troponin I (0.000-0.034) ng/mL Total Protein 7.2 (6.3-8.2) g/dL Albumin 4.2 (3.5-5.0) g/dL Critical Care Time Critical Care Time: Yes Total Critical Care Time: 35 Disposition Clinical Impression: Cerebrovascular accident (CVA) Disposition: ADMITTED IP TO THIS [facility] Referrals: [facility] [place] [facility] [Primary Care Provider] - 1-2 days Time of Disposition: 20:29
--- NOTE | 2019-10-08 19:20 | CT ---
EXAMINATION TYPE: CT angio head neck DATE OF EXAM: 10/08/2019 COMPARISON: HISTORY: cva CT DLP: 526.8 mGycm Automated exposure control for dose reduction was used. CONTRAST: Performed with IV Contrast, patient injected with 65cc mL of Isovue 370. There are 3-D post processed images. There is normal branching pattern of the great vessels on the aortic arch. There is bilateral arteria l flow in the subclavian arteries. There is arterial flow in both vertebral arteries. There is arteri al flow in the vertebrobasilar artery system. Basilar artery fills mostly from the right side. There is arterial flow in the common internal and external carotid arteries bilaterally. There is wid e patency of the carotid artery bifurcations. There is no evidence of stenosis. There is no evidence of carotid or vertebral artery aneurysm or dissection. There is arterial flow in the anterior middle and posterior cerebral arteries. I see no evidence of i ntracranial aneurysm. There is no evidence of neovascularity. There is no mass effect. There is no ev idence of intracranial arterial stenosis. There is normal contrast opacification of the venous sinuse s. There is some tortuosity of the distal internal carotid arteries bilaterally. IMPRESSION: Negative CT angiogram of the neck. Negative CT angiogram of the brain. No evidence of hemodynamic doreen nosis.
[2019-10-08 19:23] LABS: ALT 22 U/L (4-49); AST 20 U/L (17-59); African American GFR (CKD) >90 (>60 ml/min/1.73 sqM); Albumin 4.2 g/dL (3.5-5.0); Alkaline Phosphatase 51 U/L (38-126); Anion Gap 8 mmol/L; Blood Urea Nitrogen 15 mg/dL (9-20); Calcium 9.3 mg/dL (8.4-10.2); Carbon Dioxide 25 mmol/L (22-30); Chloride 103 mmol/L (98-107); Glucose 118 mg/dL (74-99); Non-African American GFR(CKD) >90 (>60 ml/min/1.73 sqM); Potassium 4.3 mmol/L (3.5-5.1); Sodium 136 mmol/L (137-145); Total Bilirubin 0.5 mg/dL (0.2-1.3); Total Protein 7.2 g/dL (6.3-8.2)
--- NOTE | 2019-10-08 19:58 | XR ---
EXAMINATION TYPE: XR chest 2V DATE OF EXAM: 10/08/2019 COMPARISON: NONE HISTORY: Altered mental status. Left arm numbness. TECHNIQUE: 2 views FINDINGS: Heart and mediastinum are normal. Lungs are clear of consolidation. There are no hilar mass es. There are chest leads. Bony thorax is intact. There is minimal linear density left lung base cons istent with subsegmental atelectasis. IMPRESSION: Normal heart. Minimal linear density left lung base..
[2019-10-08] MEDS ORDERED: ASPIRIN 325 MG TAB PO STA (20:31)
[2019-10-08] MEDS ORDERED: DOCUSATE 100 MG CAP PO PRN (22:14)
[2019-10-08] MEDS: LISINOPRIL 10 MG TAB PO SCH (23:17)
[2019-10-09 06:43] LABS: Cholesterol 152 mg/dL (<200); HDL Cholesterol 37 mg/dL (40-60); LDL Cholesterol,Calculated 95 mg/dL (0-99); Triglycerides 100 mg/dL (<150)
[2019-10-09] MEDS ORDERED: PANTOPRAZOLE 40 MG TABLET PO SCH (07:30)
[2019-10-09] MEDS: LISINOPRIL 10 MG TAB PO SCH (08:26)
[2019-10-09] MEDS ORDERED: BENZTROPINE MESYLATE 1 MG TAB PO SCH (09:00)
[2019-10-09] MEDS ORDERED: NON FORMULARY DRUG (Cholecalciferol (Vitamin D3) [Vitamin D3] 125 MCG) PO SCH (09:00)
[2019-10-09] MEDS ORDERED: LORATADINE 10 MG TAB PO SCH (09:00)
[2019-10-09] MEDS ORDERED: ASPIRIN 325 MG TAB PO SCH (09:00)
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
[2019-10-09 11:08] VITALS: RESP 18
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
--- NOTE | 2019-10-09 13:21 | MR ---
EXAMINATION TYPE: MR brain/cspine wo DATE OF EXAM: 10/09/2019 1:09 PM COMPARISON: NONE HISTORY: Left arm weakness, possible CVA versus radiculopathy Multiplanar and multispin-echo imaging of the brain was performed . The ventricles, basal cisterns and sulci overlying the cerebral convexities are within normal limits. There is no evidence for midline shift or mass effect. Acute intracranial hemorrhage or extra-axial collection is not evident. The brain parenchyma reveals no abnormal increased signal. No acute edema is identified. The paranasal sinuses and mastoid air cells are well-aerated. IMPRESSION: Unremarkable MRI of the brain. EXAMINATION TYPE: MR brain/cspine wo DATE OF EXAM: 10/09/2019 1:09 PM COMPARISON: NONE HISTORY: Left arm weakness, possible CVA versus radiculopathy Multiplanar MultiSpin echo imaging of the cervical spine was performed. Comparison: none C2-C3: No evidence for degenerative disc disease. No disc bulge/herniation or protrusion. No Canal stenosis. Foramina are patent bilaterally. C3-C4: No evidence for degenerative disc disease. No disc bulge/herniation or protrusion. No Canal stenosis. Foramina are patent bilaterally. C4-C5: Mild disc desiccation is noted. Posterocentral disc bulge or small protrusion. Mild effacement ventral thecal sac. No central stenosis or foraminal encroachment. C5-C6: Mild disc desiccation is noted. Posterocentral disc bulge or small protrusion. Mild effacement ventral thecal sac. No central stenosis or foraminal encroachment. C6-C7: Mild disc desiccation is noted. Posterocentral disc bulge or small protrusion. Mild effacement ventral thecal sac. No central stenosis. Hypertrophic and degenerative change left-sided cervical ap ophyseal joint resulting in moderate to severe left foraminal encroachment. C7-T1: No evidence for degenerative disc disease. No disc bulge/herniation or protrusion. No Canal stenosis. Foramina are patent bilaterally. Cervical segments are intact. There is normal alignment. Cervical spinal cord is of normal signal. Craniovertebral junction relationships are within normal limits. IMPRESSION: 1. Multilevel degenerative disc disease with posterior central disc bulge or small protrusions. Left neural foraminal encroachment at C6-7.
[2019-10-09 16:02] VITALS: BP 132/88; PULSE 77; TEMP 97.5
[2019-10-09] MEDS ORDERED: FAMOTIDINE 20 MG/2 ML VIAL IV SCH (21:00)
[2019-10-09] MEDS ORDERED: HEPARIN SODIUM,PORCINE 5,000 UNIT/ML 1 ML VIAL SQ SCH (21:00)
[2019-10-09] MEDS ORDERED: CITALOPRAM HYDROBROMIDE 20 MG TAB PO SCH (21:00)
[2019-10-09] MEDS ORDERED: MELATONIN 1 MG TAB PO SCH (21:00)
[2019-10-09] MEDS ORDERED: DIVALPROEX ER 500 MG TAB.ER.24H PO SCH (21:00)
== END 2019-10-09 18:00 | disposition left against medical advice (07) | DRG 552 ==
LOC: EC 17:38 → 3SCARD 20:32
PROVIDERS: ADMIT Internal Medicine; ATTEND Internal Medicine
DX: M50.323 Other cervical disc degeneration at C6-C7 level (principal); F31.9 Bipolar disorder, unspecified; I10 Essential (primary) hypertension; G47.30 Sleep apnea, unspecified; F17.210 Nicotine dependence, cigarettes, uncomplicated; K21.9 Gastro-esophageal reflux disease without esophagitis; Z11.59 Encounter for screening for other viral diseases; Z88.6 Allergy status to analgesic agent; Z79.899 Other long term (current) drug therapy; Z88.4 Allergy status to anesthetic agent; Z88.5 Allergy status to narcotic agent; Z88.8 Allergy status to other drugs, medicaments and biological substances; Z98.890 Other specified postprocedural states
CPT/HCPCS: 36415; 70450; 70496; 70498; 70551; 71046; 72141; 80053; 80061; 84484; 85025; 85610; 85730; 93005; 96360; 99291

== ENCOUNTER 2019-11-20 12:22 | Emergency (ER) | payer MEDICARE, OTHER ==
[2019-11-20 12:37] VITALS: BP 150/95; PULSE 92; RESP 16; TEMP 98.6
--- NOTE | 2019-11-20 13:15 | ED ---
General Adult HPI - General Chief complaint: Psychiatric Symptoms Stated complaint: EPS eval Time Seen by Provider: 11/20/19 12:35 Source: patient, RN notes reviewed, old records reviewed Mode of arrival: ambulatory Limitations: no limitations - History of Present Illness Initial comments: This is a 49-year-old male who presents to the emergency department stating that he has been more depressed lately. Patient also states she's been hearing voices of both his parents talking to him during the middle of day as well as while he is in bed at night. Patient states she feels like no one cares about him at this point. Patient states he hasn't taken his Depakote today or yesterday. Patient states he does no drugs or drinking. Patient states he do esn't feel like he has anyone to talk to about his problems be because he feels so they will recheck him. Patient states he is definitely not suicidal or homicidal. Patient states he does miss his parents quite a bit though. - Related Data Home Medications Medication Instructions Recorded Confirmed Benztropine Mesylate [Cogentin] 1 mg PO DAILY 02/19/14 10/08/19 Citalopram Hydrobromide [CeleXA] 20 mg PO HS 02/19/14 10/08/19 Divalproex ER [Depakote ER] 500 mg PO HS 02/19/14 10/08/19 Melatonin 1 mg PO HS 02/19/14 10/08/19 Omeprazole 40 mg PO DAILY 02/19/14 10/08/19 risperiDONE 3 mg PO HS 02/19/14 10/08/19 Divalproex ER [Depakote ER] 250 mg PO HS 03/25/19 10/08/19 Docusate [Colace] 100 mg PO DAILY PRN 03/25/19 10/08/19 Loratadine [Claritin] 10 mg PO DAILY 03/25/19 10/08/19 lisinopriL [Zestril] 10 mg PO DAILY 03/25/19 10/08/19 Cholecalciferol (Vitamin D3) 125 mcg PO DAILY 10/08/19 10/08/19 [Vitamin D3] Allergies Allergy/AdvReac Type Severity Reaction Status Date / Time acetaminophen Allergy Rash/Hives/ Verified 11/20/19 12:37 [From Darvocet-N] Nausea propoxyphene napsylate Allergy Rash/Hives/ Verified 11/20/19 12:37 [From Darvocet-N] Nausea aspirin AdvReac Nausea & Verified 11/20/19 12:37 Vomiting hydrocodone bitartrate AdvReac Nausea & Verified 11/20/19 12:37 [From Vicodin] Vomiting Review of Systems ROS Statement: Those systems with pertinent positive or pertinent negative responses have been documented in the HPI. ROS Other: All systems not noted in ROS Statement are negative. Past Medical History Past Medical History: GERD/Reflux, Hypertension, Sleep Apnea/CPAP/BIPAP History of Any Multi-Drug Resistant Organisms: None Reported Past Surgical History: Orthopedic Surgery Additional Past Surgical History / Comment(s): lt hip and knee surgery as a child Past Anesthesia/Blood Transfusion Reactions: No Reported Reaction Past Psychological History: Bipolar Smoking Status: Never smoker Past Alcohol Use History: None Reported Past Drug Use History: None Reported General Exam - General Exam Comments Initial Comments: GENERAL: Patient is well-developed and well-nourished. Patient is nontoxic and well- hydrated and is in no acute distress. ENT: Neck is soft and supple. No significant lymphadenopathy is noted. Neck has full range of motion without eliciting any pain. EYES: The sclera were anicteric and conjunctiva were pink and moist. Extraocular movements were intact and pupils were equal round and reactive to light. Eyelids were unremarkable. PULMONARY: Unlabored respirations. Good breath sounds bilaterally. No audible rales rhonchi or wheezing was noted. CARDIOVASCULAR: There is a regular rate and rhythm without any murmurs gallops or rubs. ABDOMEN: Soft and nontender with normal bowel sounds. SKIN: Skin is clear with no lesions or rashes and otherwise unremarkable. NEUROLOGIC: Patient is alert and oriented x3. Cranial nerves II through XII are grossly intact. Motor and sensory are also intact. Normal speech, volume and content. Symmetrical smile. MUSCULOSKELETAL: Normal extremities with adequate strength and full range of motion. LYMPHATICS: No significant lymphadenopathy is noted PSYCHIATRIC: Patient seems depressed and he has been hearing some voices of his parents are both . Patient states he also feels that no one cares about him anymore. Limitations: no limitations Course Vital Signs 11/20/19 12:34 Temperature 98.6 F Pulse Rate 92 Respiratory 16 Rate Blood Pressure 150/95 O2 Sat by Pulse 97 Oximetry Medical Decision Making - Medical Decision Making Patient called nursing into the room to tell me that he wanted to leave patient denied suicidal homicidal ideations he stated he was given a follow-up on his own palpation but he had something else to do right now did not want to get evaluated currently. Disposition Clinical Impression: Depression Disposition: Left Against Medical Advice Referrals: [facility] [Primary Care Provider] - 1-2 days Time of Disposition: 13:49
[2019-11-20 13:58] LABS: African American GFR (CKD) >90 (>60 ml/min/1.73 sqM); Anion Gap 8 mmol/L; Blood Urea Nitrogen 10 mg/dL (9-20); Calcium 9.3 mg/dL (8.4-10.2); Carbon Dioxide 24 mmol/L (22-30); Chloride 104 mmol/L (98-107); Glucose 98 mg/dL (74-99); Non-African American GFR(CKD) >90 (>60 ml/min/1.73 sqM); Potassium 4.5 mmol/L (3.5-5.1); Sodium 136 mmol/L (137-145)
[2019-11-20 14:00] LABS: Basophils % (A) 0 %; Eosinophils # (A) 0.1 k/uL (0-0.7); Eosinophils % (A) 2 %; HCT 46.2 % (39.0-53.0); HGB 15.3 gm/dL (13.0-17.5); Lymphocytes # (A) 1.5 k/uL (1.0-4.8); Lymphocytes % (A) 23 %; MCH 29.5 pg (25.0-35.0); MCHC 33.2 g/dL (31.0-37.0); MCV 88.8 fL (80.0-100.0); Mean Platelet Volume 7.7; Monocytes # (A) 0.4 k/uL (0-1.0); Monocytes % (A) 6 %; Neutrophils # (A) 4.4 k/uL (1.3-7.7); Neutrophils % (A) 67 %; Platelet Count 290 k/uL (150-450); RBC 5.21 m/uL (4.30-5.90); RDW 12.7 % (11.5-15.5); WBC 6.6 k/uL (3.8-10.6)
[2019-11-20 14:03] LABS: Valproic Acid (Depakene) <10.0 ug/mL
== END 2019-11-20 14:10 | disposition left against medical advice (07) ==
LOC: EC 12:22
DX: F32.9 Major depressive disorder, single episode, unspecified (principal); Z53.29 Procedure and treatment not carried out because of patient's decision for other reasons; I10 Essential (primary) hypertension; K21.9 Gastro-esophageal reflux disease without esophagitis; G47.30 Sleep apnea, unspecified; Z79.899 Other long term (current) drug therapy; Z88.5 Allergy status to narcotic agent; Z88.6 Allergy status to analgesic agent; Z88.8 Allergy status to other drugs, medicaments and biological substances; Z99.89 Dependence on other enabling machines and devices
CPT/HCPCS: 36415; 80048; 80164; 82075; 85025; 99284

== ENCOUNTER 2020-02-26 10:54 | Emergency (ER) | payer MEDICARE, OTHER ==
[2020-02-26 11:09] VITALS: BP 140/90; PULSE 79; RESP 18; TEMP 97.6
[2020-02-26] MEDS ORDERED: ACET/COD 300 MG/30 MG STARTER PACK 6 TAB BTL PO STA (11:23)
--- NOTE | 2020-02-26 11:25 | ED ---
Lower Extremity Injury HPI - General Chief Complaint: Extremity Injury, Lower Stated Complaint: toe infection Time Seen by Provider: 02/26/20 11:15 Source: patient, RN notes reviewed Mode of arrival: ambulatory Limitations: no limitations - History of Present Illness Initial Comments: 49-year-old male presents emergency Department chief complaint of left foot first digit pain. Patient states that it's increase in pain, swelling. States he noticed some redness. Patient states that his cousin cut his nails. Denies any diabetic. Patient offers no complaints. - Related Data Home Medications Medication Instructions Recorded Confirmed Benztropine Mesylate [Cogentin] 1 mg PO DAILY 02/19/14 10/08/19 Citalopram Hydrobromide [CeleXA] 20 mg PO HS 02/19/14 10/08/19 Divalproex ER [Depakote ER] 500 mg PO HS 02/19/14 10/08/19 Melatonin 1 mg PO HS 02/19/14 10/08/19 Omeprazole 40 mg PO DAILY 02/19/14 10/08/19 risperiDONE 3 mg PO HS 02/19/14 10/08/19 Divalproex ER [Depakote ER] 250 mg PO HS 03/25/19 10/08/19 Docusate [Colace] 100 mg PO DAILY PRN 03/25/19 10/08/19 Loratadine [Claritin] 10 mg PO DAILY 03/25/19 10/08/19 lisinopriL [Zestril] 10 mg PO DAILY 03/25/19 10/08/19 Cholecalciferol (Vitamin D3) 125 mcg PO DAILY 10/08/19 10/08/19 [Vitamin D3] Previous Rx's Medication Instructions Recorded Cephalexin [Keflex] 500 mg PO Q6HR #40 cap 02/26/20 Allergies Allergy/AdvReac Type Severity Reaction Status Date / Time acetaminophen Allergy Rash/Hives/ Verified 02/26/20 11:05 [From Darvocet-N] Nausea propoxyphene napsylate Allergy Rash/Hives/ Verified 02/26/20 11:05 [From Darvocet-N] Nausea aspirin AdvReac Nausea & Verified 02/26/20 11:05 Vomiting hydrocodone bitartrate AdvReac Nausea & Verified 02/26/20 11:05 [From Vicodin] Vomiting Review of Systems ROS Statement: Those systems with pertinent positive or pertinent negative responses have been documented in the HPI. ROS Other: All systems not noted in ROS Statement are negative. Past Medical History Past Medical History: GERD/Reflux, Hypertension, Sleep Apnea/CPAP/BIPAP History of Any Multi-Drug Resistant Organisms: None Reported Past Surgical History: Orthopedic Surgery Additional Past Surgical History / Comment(s): lt hip and knee surgery as a child Past Anesthesia/Blood Transfusion Reactions: No Reported Reaction Past Psychological History: Bipolar Smoking Status: Former smoker Past Alcohol Use History: None Reported Past Drug Use History: None Reported General Exam Limitations: no limitations General appearance: alert, in no apparent distress Head exam: Present: atraumatic, normocephalic, normal inspection Eye exam: Present: normal appearance, PERRL, EOMI. Absent: scleral icterus, conjunctival injection, periorbital swelling ENT exam: Present: normal exam, normal oropharynx, mucous membranes moist Neck exam: Present: normal inspection, full ROM. Absent: tenderness, meningismus, lymphadenopathy Respiratory exam: Present: normal lung sounds bilaterally. Absent: respiratory distress, wheezes, rales, rhonchi, stridor Cardiovascular Exam: Present: regular rate, normal rhythm, normal heart sounds. Absent: systolic murmur, diastolic murmur, rubs, gallop, clicks Extremities exam: Present: other (Left foot first digit there is some erythema no swelling on the nail fold, there is some discharge noted and tenderness palpation.) Course Vital Signs 02/26/20 11:06 Temperature 97.6 F Pulse Rate 79 Respiratory 18 Rate Blood Pressure 140/90 O2 Sat by Pulse 100 Oximetry Medical Decision Making - Medical Decision Making Patient has a mildly infected toe. Patient will follow-up with podiatry. Patient started on antibiotics. Return parameters discussed. Disposition Clinical Impression: Ingrown left big toenail Disposition: HOME SELF-CARE Condition: Stable Instructions (If sedation given, give patient instructions): Ingrown Nail (ED) Additional Instructions: Please return to the Emergency Department if symptoms worsen or any other concerns. Prescriptions: Cephalexin [Keflex] 500 mg PO Q6HR #40 cap Is patient prescribed a controlled substance at d/c from ED?: No [facility] - [facility]-2 days Rene Bautista DPM [STAFF PHYSICIAN] - 1-2 days Time of Disposition: 11:24
== END 2020-02-26 12:11 | disposition home or self-care (01) ==
LOC: EC 10:54
DX: L60.0 Ingrowing nail (principal); L08.9 Local infection of the skin and subcutaneous tissue, unspecified; I10 Essential (primary) hypertension; K21.9 Gastro-esophageal reflux disease without esophagitis; G47.30 Sleep apnea, unspecified; F31.9 Bipolar disorder, unspecified; Z79.899 Other long term (current) drug therapy; Z79.890 Hormone replacement therapy; Z88.6 Allergy status to analgesic agent; Z88.5 Allergy status to narcotic agent; Z99.89 Dependence on other enabling machines and devices; Z87.891 Personal history of nicotine dependence
CPT/HCPCS: 99283

== ENCOUNTER 2020-04-30 10:53 | Emergency (ER) | payer MEDICARE, OTHER ==
[2020-04-30 11:02] VITALS: BP 132/96; PULSE 73; RESP 18; TEMP 98.2
[2020-04-30] MEDS ORDERED: ACET/COD 300 MG/30 MG STARTER PACK 6 TAB BTL PO STA (11:14)
--- NOTE | 2020-04-30 11:14 | ED ---
Extremity Problem HPI - General Source: patient, RN notes reviewed Mode of arrival: ambulatory Limitations: no limitations <Mike Ovalle - Last Filed: 04/30/20 11:15> <Connie Mendez - Last Filed: 04/30/20 13:06> - General Chief complaint: Extremity Problem,Nontraumatic Stated complaint: Toe pain Time Seen by Provider: 04/30/20 11:04 - History of Present Illness Initial comments: 49-year-old male presents emergency Department with chief complaint infection to his toe. Patient states he was seen here a few months ago and did resolve but states that he never followed up. Patient states that they have now cut his nails short of than before states that this more painful. Patient denies any fevers or chills she states it is swollen and very painful. Patient offers no other complaints. (Mike Ovalle) - Related Data Home Medications Medication Instructions Recorded Confirmed Benztropine Mesylate [Cogentin] 1 mg PO DAILY 02/19/14 10/08/19 Citalopram Hydrobromide [CeleXA] 20 mg PO HS 02/19/14 10/08/19 Divalproex ER [Depakote ER] 500 mg PO HS 02/19/14 10/08/19 Melatonin 1 mg PO HS 02/19/14 10/08/19 Omeprazole 40 mg PO DAILY 02/19/14 10/08/19 risperiDONE 3 mg PO HS 02/19/14 10/08/19 Divalproex ER [Depakote ER] 250 mg PO HS 03/25/19 10/08/19 Docusate [Colace] 100 mg PO DAILY PRN 03/25/19 10/08/19 Loratadine [Claritin] 10 mg PO DAILY 03/25/19 10/08/19 lisinopriL [Zestril] 10 mg PO DAILY 03/25/19 10/08/19 Cholecalciferol (Vitamin D3) 125 mcg PO DAILY 10/08/19 10/08/19 [Vitamin D3] Previous Rx's Medication Instructions Recorded Cephalexin [Keflex] 500 mg PO Q6HR #40 cap 04/30/20 Allergies Allergy/AdvReac Type Severity Reaction Status Date / Time acetaminophen Allergy Rash/Hives/ Verified 04/30/20 11:02 [From Darvocet-N] Nausea propoxyphene napsylate Allergy Rash/Hives/ Verified 04/30/20 11:02 [From Darvocet-N] Nausea aspirin AdvReac Nausea & Verified 04/30/20 11:02 Vomiting hydrocodone bitartrate AdvReac Nausea & Verified 04/30/20 11:02 [From Vicodin] Vomiting Review of Systems ROS Other: All systems not noted in ROS Statement are negative. <Mike Ovalle - Last Filed: 04/30/20 11:15> ROS Other: All systems not noted in ROS Statement are negative. <Connie Mendez - Last Filed: 04/30/20 13:06> ROS Statement: Those systems with pertinent positive or pertinent negative responses have been documented in the HPI. Past Medical History Past Medical History: GERD/Reflux, Hypertension, Sleep Apnea/CPAP/BIPAP History of Any Multi-Drug Resistant Organisms: None Reported Past Surgical History: Orthopedic Surgery Additional Past Surgical History / Comment(s): lt hip and knee surgery as a child Past Anesthesia/Blood Transfusion Reactions: No Reported Reaction Past Psychological History: Bipolar Smoking Status: Current every day smoker Past Alcohol Use History: None Reported Past Drug Use History: None Reported <Mike Ovalle - Last Filed: 04/30/20 11:15> General Exam Limitations: no limitations General appearance: alert, in no apparent distress Head exam: Present: atraumatic, normocephalic, normal inspection Respiratory exam: Present: normal lung sounds bilaterally. Absent: respiratory distress, wheezes, rales, rhonchi, stridor Cardiovascular Exam: Present: regular rate, normal rhythm, normal heart sounds. Absent: systolic murmur, diastolic murmur, rubs, gallop, clicks Extremities exam: Present: other (Left foot first digit there is erythema on the nail fold, swelling noted nails are cut very short tenderness on the lateral nail fold) <Mike Ovalle - Last Filed: 04/30/20 11:15> Course Vital Signs 04/30/20 10:58 Temperature 98.2 F Pulse Rate 73 Respiratory 18 Rate Blood Pressure 132/96 O2 Sat by Pulse 97 Oximetry Medical Decision Making <Mike Ovalle - Last Filed: 04/30/20 11:15> <Connie Mendez - Last Filed: 04/30/20 13:06> - Medical Decision Making Patient has ingrown toenail with mild signs of infection. Patient starting antibiotics will follow-up with podiatry for nail removal return for any worsening change in symptoms. (Mike Ovalle) I was available for consultation in the emergency department. The history and physical exam were done by the midlevel provider. I was consulted for this patients care. I reviewed the case with the midlevel provider and based on their presentation of the patient, I agree with the assessment, medical decision making and plan of care as documented. Chart was dictated using [employer] dictation software. Attempts were made to correct any dictation errors however some typographical errors may persist. (Connie Mendez) Disposition Is patient prescribed a controlled substance at d/c from ED?: No Time of Disposition: 11:14 <Mike Ovalle - Last Filed: 04/30/20 11:15> <Connie Mendez - Last Filed: 04/30/20 13:06> Clinical Impression: Ingrowing toenail with infection Disposition: HOME SELF-CARE Condition: Stable Instructions (If sedation given, give patient instructions): Ingrown Nail (ED) Additional Instructions: Do not trim nails shorter then the skin of your toe. Please follow-up with podiatry for nail removal. Please return to the Emergency Department if symptoms worsen or any other concerns. Prescriptions: Cephalexin [Keflex] 500 mg PO Q6HR #40 cap [facility]errals: [facility] [Primary Care Provider] - 1-2 days Rene Bautista DPM [STAFF PHYSICIAN] - 1-2 days Lewis Tavera DPM [Doctor of Osteopathic Medicine] - 1-2 days Josse Oden DPM [REFERRING] - 1-2 days
== END 2020-04-30 11:33 | disposition home or self-care (01) ==
LOC: EC 10:53
DX: L60.0 Ingrowing nail (principal); K21.9 Gastro-esophageal reflux disease without esophagitis; I10 Essential (primary) hypertension; G47.30 Sleep apnea, unspecified; F17.200 Nicotine dependence, unspecified, uncomplicated; F31.9 Bipolar disorder, unspecified; Z79.899 Other long term (current) drug therapy; Z88.6 Allergy status to analgesic agent; Z88.5 Allergy status to narcotic agent; Z88.8 Allergy status to other drugs, medicaments and biological substances; Z99.89 Dependence on other enabling machines and devices
CPT/HCPCS: 99283

== ENCOUNTER → 2020-08-17 | Outpatient (CLI) | payer MEDICARE, OTHER ==
--- NOTE | 2020-08-17 08:49 | XR ---
EXAMINATION TYPE: XR abdomen 1V DATE OF EXAM: 08/17/2020 COMPARISON: NONE HISTORY: Pain TECHNIQUE: One view abdominal series FINDINGS: The osseous structures are intact. The bowel gas pattern is nonspecific. Lung bases are clear. Arth ropathy of the hips. Curvature of the spine. IMPRESSION: 1. Nonspecific abdomen.
== END | disposition home or self-care (01) ==
LOC: RADXRMAIN 08:31
PROVIDERS: ATTEND Nurse Practitioner
DX: R10.9 Unspecified abdominal pain (principal)
CPT/HCPCS: 74018

== ENCOUNTER 2020-12-15 17:49 | Emergency (ER) | payer MEDICARE, OTHER ==
[2020-12-15 18:01] VITALS: RESP 18
--- NOTE | 2020-12-15 19:42 | ED ---
Psych HPI - General Chief Complaint: Psychiatric Symptoms Stated Complaint: med refill Time Seen by Provider: 12/15/20 19:18 Source: patient, family, RN notes reviewed Mode of arrival: ambulatory Limitations: no limitations - History of Present Illness Initial Comments: This a 50-year-old male presents emergency Department chief complaint of needing psychiatric help. Patient states he has been off his medications. Patient states that he tried to disappear for last few days from his family. Patient states his behavior is not well. He denies any drug or alcohol abuse. Patient states that he is here to get help. Patient is off all medications has not seen a psychiatrist. - Related Data Home Medications Medication Instructions Recorded Confirmed Benztropine Mesylate [Cogentin] 1 mg PO DAILY 02/19/14 10/08/19 Citalopram Hydrobromide [CeleXA] 20 mg PO HS 02/19/14 10/08/19 Divalproex ER [Depakote ER] 500 mg PO HS 02/19/14 10/08/19 Melatonin 1 mg PO HS 02/19/14 10/08/19 Omeprazole 40 mg PO DAILY 02/19/14 10/08/19 risperiDONE 3 mg PO HS 02/19/14 10/08/19 Divalproex ER [Depakote ER] 250 mg PO HS 03/25/19 10/08/19 Docusate [Colace] 100 mg PO DAILY PRN 03/25/19 10/08/19 Loratadine [Claritin] 10 mg PO DAILY 03/25/19 10/08/19 lisinopriL [Zestril] 10 mg PO DAILY 03/25/19 10/08/19 Cholecalciferol (Vitamin D3) 125 mcg PO DAILY 10/08/19 10/08/19 [Vitamin D3] Previous Rx's Medication Instructions Recorded Cephalexin [Keflex] 500 mg PO Q6HR #40 cap 04/30/20 Allergies Allergy/AdvReac Type Severity Reaction Status Date / Time acetaminophen Allergy Rash/Hives/ Verified 12/15/20 18:03 [From Darvocet-N] Nausea propoxyphene napsylate Allergy Rash/Hives/ Verified 12/15/20 18:03 [From Darvocet-N] Nausea aspirin AdvReac Nausea & Verified 12/15/20 18:03 Vomiting hydrocodone bitartrate AdvReac Nausea & Verified 12/15/20 18:03 [From Vicodin] Vomiting Review of Systems ROS Statement: Those systems with pertinent positive or pertinent negative responses have been documented in the HPI. ROS Other: All systems not noted in ROS Statement are negative. Past Medical History Past Medical History: GERD/Reflux, Hypertension, Sleep Apnea/CPAP/BIPAP History of Any Multi-Drug Resistant Organisms: None Reported Past Surgical History: Orthopedic Surgery Additional Past Surgical History / Comment(s): lt hip and knee surgery as a child Past Anesthesia/Blood Transfusion Reactions: No Reported Reaction Past Psychological History: Bipolar, Schizophrenia Smoking Status: Current every day smoker Past Alcohol Use History: None Reported Past Drug Use History: None Reported General Exam Limitations: no limitations General appearance: alert, in no apparent distress Head exam: Present: atraumatic, normocephalic, normal inspection Neck exam: Present: normal inspection. Absent: tenderness, meningismus, lymphadenopathy Respiratory exam: Present: normal lung sounds bilaterally. Absent: respiratory distress, wheezes, rales, rhonchi, stridor Cardiovascular Exam: Present: regular rate, normal rhythm, normal heart sounds. Absent: systolic murmur, diastolic murmur, rubs, gallop, clicks Psychiatric exam: Present: flat affect Skin exam: Present: warm, dry, intact, normal color. Absent: rash Course Vital Signs 12/15/20 12/15/20 17:57 19:53 Temperature 97.8 F Pulse Rate 88 Respiratory 18 18 Rate Blood Pressure 147/101 O2 Sat by Pulse 96 Oximetry Medical Decision Making - Medical Decision Making Patient was evaluated by EPS patient be discharged in stable condition. - Lab Data Lab Results 12/15/20 Range/Units 19:55 Urine Opiates Screen Not Detected (NotDetected) Ur Oxycodone Screen Not Detected (NotDetected) Urine Methadone Screen Not Detected (NotDetected) Ur Propoxyphene Screen Not Detected (NotDetected) Ur Barbiturates Screen Not Detected (NotDetected) U Tricyclic Antidepress Not Detected (NotDetected) Ur Phencyclidine Scrn Not Detected (NotDetected) Ur Amphetamines Screen Not Detected (NotDetected) U Methamphetamines Scrn Not Detected (NotDetected) U Benzodiazepines Scrn Not Detected (NotDetected) Urine Cocaine Screen Not Detected (NotDetected) U Marijuana (THC) Screen Detected H (NotDetected) Disposition Clinical Impression: Depression Disposition: HOME SELF-CARE Condition: Stable Instructions (If sedation given, give patient instructions): Depression (ED) Additional Instructions: Please return to the Emergency Department if symptoms worsen or any other concerns. Is patient prescribed a controlled substance at d/c from ED?: No [facility]errals: [facility] [Primary Care Provider] - 1-2 days Time of Disposition: 21:53
[2020-12-15 20:27] LABS: Amphetamine Screen,Urine Not Detected (NotDetected); Barbiturate Screen,Urine Not Detected (NotDetected); Benzodiazepines Screen,Urine Not Detected (NotDetected); Cocaine Screen,Urine Not Detected (NotDetected); Methadone Screen, Urine Not Detected (NotDetected); Opiate Screen,Urine Not Detected (NotDetected); Oxycodone Screen, Urine Not Detected (NotDetected); Phencyclidine Screen,Urine Not Detected (NotDetected); Tricyclic Antidepressant,Urine Not Detected (NotDetected); Urn Cannabinoid Scrn Detected (NotDetected)
[2020-12-15 22:08] VITALS: BP 152/96; PULSE 68; TEMP 98.2
== END 2020-12-15 22:06 | disposition home or self-care (01) ==
LOC: EC 17:49
DX: F32.9 Major depressive disorder, single episode, unspecified (principal); I10 Essential (primary) hypertension; K21.9 Gastro-esophageal reflux disease without esophagitis; F17.200 Nicotine dependence, unspecified, uncomplicated; Z79.899 Other long term (current) drug therapy; Z88.6 Allergy status to analgesic agent; Z88.8 Allergy status to other drugs, medicaments and biological substances; Z88.5 Allergy status to narcotic agent
CPT/HCPCS: 80306; 82075; 99282

== ENCOUNTER 2022-11-16 00:10 | Emergency (ER) | payer MEDICARE, OTHER ==
[2022-11-16 00:23] VITALS: TEMP 98.5
[2022-11-16] MEDS ORDERED: PANTOPRAZOLE 40 MG/10 ML VIAL IVP STA (00:30)
[2022-11-16] MEDS ORDERED: ONDANSETRON 4 MG/2 ML VIAL IVP STA (00:30)
[2022-11-16] MEDS ORDERED: SODIUM CHLORIDE 0.9% 1,000 ML IV STA (00:30)
[2022-11-16] MEDS ORDERED: HYDROmorphone 0.5 MG/0.5 ML SYRINGE IVP STA (00:32)
--- NOTE | 2022-11-16 00:45 | ED ---
Head Injury HPI - General Chief complaint: Head Injury Stated complaint: Vomiting Blood, Head injury Time Seen by Provider: 11/16/22 00:24 Source: patient, RN notes reviewed Mode of arrival: ambulatory Limitations: no limitations - History of Present Illness Initial comments: This is a 52-year-old male who presents to the emergency department for a head injury. States that 2 days ago he was helping his mother clean out her house, when a door fell and hit him on the top of his head. Denies any loss of consciousness. Not taking any blood thinners. However, states that shortly afterwards he started to vomit and there was blood mixed in with his vomit. States that this was bright red blood. States that he had been doing okay, but today started to feel nauseous again. When he went to throw up, there was again blood in his vomit. Denies any abdominal pain. States that he does continue to have a headache with associated photophobia. Denies any fevers, chills, sore throat, cough, dyspnea, chest pain, palpitations, abdominal pain, diarrhea, or back pain. MD Complaint: head injury Onset/Timin -: days(s) - Related Data Home Medications Medication Instructions Recorded Confirmed Benztropine Mesylate [Cogentin] 1 mg PO DAILY 02/19/14 10/08/19 Citalopram Hydrobromide [CeleXA] 20 mg PO HS 02/19/14 10/08/19 Divalproex ER [Depakote ER] 500 mg PO HS 02/19/14 10/08/19 Melatonin 1 mg PO HS 02/19/14 10/08/19 Omeprazole 40 mg PO DAILY 02/19/14 10/08/19 risperiDONE 3 mg PO HS 02/19/14 10/08/19 Divalproex ER [Depakote ER] 250 mg PO HS 03/25/19 10/08/19 Docusate [Colace] 100 mg PO DAILY PRN 03/25/19 10/08/19 Loratadine [Claritin] 10 mg PO DAILY 03/25/19 10/08/19 lisinopriL [Zestril] 10 mg PO DAILY 03/25/19 10/08/19 Cholecalciferol (Vitamin D3) 125 mcg PO DAILY 10/08/19 10/08/19 [Vitamin D3] Previous Rx's Medication Instructions Recorded Cephalexin [Keflex] 500 mg PO Q6HR #40 cap 04/30/20 Metoclopramide [Reglan] 10 mg PO Q6H PRN #20 tab 11/16/22 Ondansetron Odt [Zofran Odt] 4 mg PO Q8HR PRN #20 tab 11/16/22 Pantoprazole [Protonix] 40 mg PO DAILY 14 Days #14 tab 11/16/22 Allergies/Adverse reactions: Allergies Allergy/AdvReac Type Severity Reaction Status Date / Time acetaminophen Allergy Rash/Hives/ Verified 11/16/22 00:23 [From Darvocet-N] Nausea propoxyphene napsylate Allergy Rash/Hives/ Verified 11/16/22 00:23 [From Darvocet-N] Nausea aspirin AdvReac Nausea & Verified 11/16/22 00:23 Vomiting hydrocodone bitartrate AdvReac Nausea & Verified 11/16/22 00:23 [From Vicodin] Vomiting Review of Systems ROS Statement: Those systems with pertinent positive or pertinent negative responses have been documented in the HPI. ROS Other: All systems not noted in ROS Statement are negative. Past Medical History Past Medical History: GERD/Reflux, Hypertension, Sleep Apnea/CPAP/BIPAP History of Any Multi-Drug Resistant Organisms: None Reported Past Surgical History: Orthopedic Surgery Additional Past Surgical History / Comment(s): lt hip and knee surgery as a child Past Anesthesia/Blood Transfusion Reactions: No Reported Reaction Past Psychological History: Bipolar, Schizophrenia Smoking Status: Current every day smoker Past Alcohol Use History: None Reported Past Drug Use History: None Reported General Exam Limitations: no limitations General appearance: alert, in no apparent distress Head exam: Present: atraumatic, normocephalic, normal inspection Eye exam: Present: normal appearance, PERRL, EOMI. Absent: scleral icterus, conjunctival injection, periorbital swelling Respiratory exam: Present: normal lung sounds bilaterally. Absent: respiratory distress, wheezes, rales, rhonchi, stridor Cardiovascular Exam: Present: regular rate, normal rhythm, normal heart sounds. Absent: systolic murmur, diastolic murmur, rubs, gallop, clicks GI/Abdominal exam: Present: soft, normal bowel sounds. Absent: distended, tenderness, guarding, rebound, rigid Neurological exam: Present: alert, oriented X3, CN II-XII intact Psychiatric exam: Present: normal affect, normal mood Skin exam: Present: warm, dry, intact, normal color. Absent: rash Course Vital Signs 11/16/22 11/16/22 11/16/22 00:21 01:54 02:19 Temperature 98.5 F Pulse Rate 45 L 71 70 Respiratory 18 19 19 Rate Blood Pressure 112/75 134/89 138/91 O2 Sat by Pulse 99 95 98 Oximetry Medical Decision Making - Medical Decision Making This is a 52-year-old male who presents to the emergency department for a head injury and hematemesis. Was pt. sent in by a medical professional or institution? @ -No Did you speak to anyone other than the patient for history? @ -No Did you review nursing and triage notes? @ -Yes, and I agree, it is accurate with regards to the patient's symptoms. Were old charts reviewed? @ -No Differential Diagnosis? @ -Differential Diagnosis Head Injury: Contusion, hematoma, intracranial hemorrhage, skull fracture, whiplash, concussion, this is not meant to be an all-inclusive list. EKG interpreted by me (3pts min.)? @ -Not obtained X-rays interpreted by me (1pt min.)? @ -Not obtained CT interpreted by me (1pt min.)? @ -Computed tomography scan of the brain obtained. My interpretation identifies no evidence of an acute intracranial hemorrhage or skull fracture. U/S interpreted by me (1pt. min.)? @ -Not obtained What testing was considered but not performed? (CT, X-rays, U/S, labs)? Why? @ -None What meds were considered but not given? Why? @ -None Did you discuss the management of the patient with other professionals? @ -No Did you reconcile home meds? @ -No Was smoking cessation discussed for >3mins.? @ -No Was critical care preformed (if so, how long)? @ -No Were there social determinants of health that impacted care today? How? (Homelessness, low income, unemployed, alcoholism, drug addiction, transportation, low edu. Level, literacy, decrease access to med. care, custodial, rehab)? @ -No Was there de-escalation of care discussed even if they declined? (Discuss DNR or withdrawal of care, Hospice)? @ -No What co-morbidities impacted this encounter? (DM, HTN, Smoking, COPD, CAD, Cancer, CVA, Hep., AIDS, mental health diagnosis, sleep apnea, morbid obesity)? @ -GERD Was patient admitted / discharged? @ -Discharged. Lab work obtained and found to be nonactionable. Computed tomography scan of the brain reveals no acute process. Patient treated with IV fluids, Protonix and Zofran. He felt like he had a fair amount of improvement in symptoms, aside from mild residual nausea. He was subsequently given a dose of Reglan, and the nausea fully resolved. He did not exhibit any episodes of emesis while in the emergency department. Patient likely sustained a concussion, resulting in the ongoing headaches and nausea. The blood-streaked vomit is likely related to gastritis from repetitive episodes of vomiting. Prescription for Protonix provided with dosing instructions reviewed. Advised that he should take this for 2 weeks to help with management of this. He was also given prescriptions for both Reglan and Zofran, as both medications were needed to adequately controlled the nausea. Recommended he start with one of the medications, and alternate with the second one if the first one was not adequately controlling his symptoms. He is otherwise instructed to slowly advance his diet as tolerated, remain well-hydrated, and follow up with his primary care provider. Undiagnosed new problem with uncertain prognosis? @ -None Drug Therapy requiring intensive monitoring for toxicity (Heparin, Nitro, Insulin, Cardizem)? @ -None Were any procedures done? @ -None Diagnosis/symptom? @ -Head injury, nausea and vomiting, gastritis Acute, or Chronic, or Acute on Chronic? @ -Acute Uncomplicated (without systemic symptoms) or Complicated (systemic symptoms)? @ -Uncomplicated Side effects of treatment? @ -None Exacerbation, Progression, or Severe Exacerbation] @ -Not applicable Poses a threat to life or bodily function? @ -No Return precautions reviewed in depth, the patient is instructed to return to the emergency department with any new, worsening, or concerning symptoms. Patient verbalized understanding. This case was discussed in detail with the attending ED physician, Dr. Estrada. Presentation, findings, and treatment plan discussed in detail as well. - Lab Data Result diagrams: 11/16/22 00:45 11/16/22 00:45 Lab Results 11/16/22 11/16/22 11/16/22 Range/Units 00:45 00:45 00:45 WBC 6.8 (3.8-10.6) k/uL RBC 4.78 (4.30-5.90) m/uL Hgb 14.6 (13.0-17.5) gm/dL Hct 42.9 (39.0-53.0) % MCV 89.8 (80.0-100.0) fL MCH 30.5 (25.0-35.0) pg MCHC 33.9 (31.0-37.0) g/dL RDW 12.5 (11.5-15.5) % Plt Count 232 (150-450) k/uL MPV 8.7 Neutrophils % 52 % Lymphocytes % 35 % Monocytes % 8 % Eosinophils % 2 % Basophils % 0 % Neutrophils # 3.6 (1.3-7.7) k/uL Lymphocytes # 2.4 (1.0-4.8) k/uL Monocytes # 0.5 (0-1.0) k/uL Eosinophils # 0.2 (0-0.7) k/uL Basophils # 0.0 (0-0.2) k/uL PT 10.0 (9.0-12.0) sec INR 0.9 (<1.2) APTT 24.5 (22.0-30.0) sec Sodium 136 L (137-145) mmol/L Potassium 4.2 (3.5-5.1) mmol/L Chloride 102 (98-107) mmol/L Carbon Dioxide 23 (22-30) mmol/L Anion Gap 11 mmol/L BUN 16 (9-20) mg/dL Creatinine 0.74 (0.66-1.25) mg/dL Est GFR (CKD-EPI)AfAm >90 (>60 ml/min/1.73 sqM) Est GFR (CKD-EPI)NonAf >90 (>60 ml/min/1.73 sqM) Glucose 117 H (74-99) mg/dL Plasma Lactic Acid John (0.7-2.0) mmol/L Calcium 8.9 (8.4-10.2) mg/dL Total Bilirubin 0.4 (0.2-1.3) mg/dL AST 19 (17-59) U/L ALT 21 (4-49) U/L Alkaline Phosphatase 48 (38-126) U/L Total Protein 7.2 (6.3-8.2) g/dL Albumin 4.1 (3.5-5.0) g/dL 11/16/22 Range/Units 00:45 WBC (3.8-10.6) k/uL RBC (4.30-5.90) m/uL Hgb (13.0-17.5) gm/dL Hct (39.0-53.0) % MCV (80.0-100.0) fL MCH (25.0-35.0) pg MCHC (31.0-37.0) g/dL RDW (11.5-15.5) % Plt Count (150-450) k/uL MPV Neutrophils % % Lymphocytes % % Monocytes % % Eosinophils % % Basophils % % Neutrophils # (1.3-7.7) k/uL Lymphocytes # (1.0-4.8) k/uL Monocytes # (0-1.0) k/uL Eosinophils # (0-0.7) k/uL Basophils # (0-0.2) k/uL PT (9.0-12.0) sec INR (<1.2) APTT (22.0-30.0) sec Sodium (137-145) mmol/L Potassium (3.5-5.1) mmol/L Chloride (98-107) mmol/L Carbon Dioxide (22-30) mmol/L Anion Gap mmol/L BUN (9-20) mg/dL Creatinine (0.66-1.25) mg/dL Est GFR (CKD-EPI)AfAm (>60 ml/min/1.73 sqM) Est GFR (CKD-EPI)NonAf (>60 ml/min/1.73 sqM) Glucose (74-99) mg/dL Plasma Lactic Acid John 1.2 (0.7-2.0) mmol/L Calcium (8.4-10.2) mg/dL Total Bilirubin (0.2-1.3) mg/dL AST (17-59) U/L ALT (4-49) U/L Alkaline Phosphatase (38-126) U/L Total Protein (6.3-8.2) g/dL Albumin (3.5-5.0) g/dL - Radiology Data Radiology results: report reviewed, image reviewed Disposition Clinical Impression: Closed head injury, Nausea and vomiting, Gastritis Disposition: HOME SELF-CARE Instructions (If sedation given, give patient instructions): Head Injury (ED) Additional Instructions: Return to the emergency department with any new, worsening, or concerning symptoms. Take the pantoprazole daily for 2 weeks. Take this 30-60 minutes before eating or taking any other medication. You can alternate with the Zofran and Reglan as needed for nausea and vomiting. Slowly advance your diet as tolerated and remain well-hydrated. Follow up with your primary care provider in 1-2 days. Prescriptions: Pantoprazole [Protonix] 40 mg PO DAILY 14 Days #14 tab Metoclopramide [Reglan] 10 mg PO Q6H PRN #20 tab PRN Reason: Nausea And Vomiting Ondansetron Odt [Zofran Odt] 4 mg PO Q8HR PRN #20 tab PRN Reason: Nausea And Vomiting Is patient prescribed a controlled substance at d/c from ED?: No Referrals: [facility] [Primary Care Provider] - 1-2 days
[2022-11-16 01:23] LABS: ALT 21 U/L (4-49); AST 19 U/L (17-59); African American GFR (CKD) >90 (>60 ml/min/1.73 sqM); Albumin 4.1 g/dL (3.5-5.0); Alkaline Phosphatase 48 U/L (38-126); Anion Gap 11 mmol/L; Blood Urea Nitrogen 16 mg/dL (9-20); Calcium 8.9 mg/dL (8.4-10.2); Carbon Dioxide 23 mmol/L (22-30); Chloride 102 mmol/L (98-107); Glucose 117 mg/dL (74-99); Non-African American GFR(CKD) >90 (>60 ml/min/1.73 sqM); Potassium 4.2 mmol/L (3.5-5.1); Sodium 136 mmol/L (137-145); Total Bilirubin 0.4 mg/dL (0.2-1.3); Total Protein 7.2 g/dL (6.3-8.2)
[2022-11-16 01:25] LABS: Basophils % (A) 0 %; Eosinophils # (A) 0.2 k/uL (0-0.7); Eosinophils % (A) 2 %; HCT 42.9 % (39.0-53.0); HGB 14.6 gm/dL (13.0-17.5); Lymphocytes # (A) 2.4 k/uL (1.0-4.8); Lymphocytes % (A) 35 %; MCH 30.5 pg (25.0-35.0); MCHC 33.9 g/dL (31.0-37.0); MCV 89.8 fL (80.0-100.0); Mean Platelet Volume 8.7; Monocytes # (A) 0.5 k/uL (0-1.0); Monocytes % (A) 8 %; Neutrophils # (A) 3.6 k/uL (1.3-7.7); Neutrophils % (A) 52 %; Platelet Count 232 k/uL (150-450); RBC 4.78 m/uL (4.30-5.90); RDW 12.5 % (11.5-15.5); WBC 6.8 k/uL (3.8-10.6)
--- NOTE | 2022-11-16 01:27 | CT ---
EXAM: CT Head Without Intravenous Contrast CLINICAL HISTORY: ITS.REASON CT Reason: Head injury TECHNIQUE: Axial computed tomography images of the head/brain without intravenous contrast. CTDI is 49.1 mGy and DLP is 1100.4 mGy-cm. This CT exam was performed using one or more of the following dose reduction techniques: automated exposure control, adjustment of the mA and/or kV according to patient size, and/or use of iterative reconstruction technique. COMPARISON: No relevant prior studies available. FINDINGS: Brain: No hemorrhage or mass effect. Ventricles: No hydrocephalus. Bones/joints: Unremarkable. Soft tissues: Unremarkable. Sinuses: No air fluid level. Mastoid air cells: Clear. IMPRESSION: No acute hemorrhage, hydrocephalus, or mass effect.
[2022-11-16 01:33] LABS: INR 0.9 (<1.2); Partial Thromboplastin Time 24.5 sec (22.0-30.0)
[2022-11-16] MEDS ORDERED: METOCLOPRAMIDE 5 MG/ML 2 ML VIAL IVP STA (01:47)
[2022-11-16 01:55] VITALS: RESP 19
[2022-11-16 02:20] VITALS: BP 138/91; PULSE 70
[2022-11-16] MEDS ORDERED: ONDANSETRON 4 MG ODT STARTER PACK 2 TAB BTL PO STA (02:42)
== END 2022-11-16 02:58 | disposition home or self-care (01) ==
LOC: EC 00:10
DX: S09.90XA Unspecified injury of head, initial encounter (principal); K29.70 Gastritis, unspecified, without bleeding; K21.9 Gastro-esophageal reflux disease without esophagitis; I10 Essential (primary) hypertension; F31.9 Bipolar disorder, unspecified; F17.200 Nicotine dependence, unspecified, uncomplicated; Z88.5 Allergy status to narcotic agent; Z88.6 Allergy status to analgesic agent; Z88.8 Allergy status to other drugs, medicaments and biological substances; Z79.899 Other long term (current) drug therapy; W20.8XXA Other cause of strike by thrown, projected or falling object, initial encounter
CPT/HCPCS: 36415; 80053; 83605; 85025; 85610; 85730; 70450; 99284; 96374; 96375 ×2; 96361 ×2; J2765; J2405; S0119; C9113

== ENCOUNTER 2022-11-28 22:00 | Emergency (ER) | payer MEDICARE, OTHER ==
--- NOTE | 2022-11-28 22:33 | ED ---
General Adult HPI - General Source: patient Mode of arrival: ambulatory Limitations: no limitations <JaseKranthimckayla - Last Filed: 11/28/22 22:32> - General Source: patient, RN notes reviewed Mode of arrival: ambulatory Limitations: no limitations <Charissa Aquino - Last Filed: 11/29/22 01:01> - General Chief complaint: Extremity Injury, Upper Stated complaint: Left Wrist Injury Time Seen by Provider: 11/28/22 22:33 - History of Present Illness Initial comments: 52-year-old male presenting with left wrist pain (Huong Laguna) 52-year-old male presents to the emergency department with chief complaint of left dorsal lateral wrist pain 2 days. He states that he noticed it some yesterday but woke up today with worsening pain. He states that he grabbed a bottle of coke and dropped it on the ground because he could not close his hand since it was painful. He denies any known injury. He denies prior injury to his left hand. Denies fever, chills, redness, nausea, vomiting. (Charissa Aquino) - Related Data Home Medications Medication Instructions Recorded Confirmed Benztropine Mesylate [Cogentin] 1 mg PO DAILY 02/19/14 10/08/19 Citalopram Hydrobromide [CeleXA] 20 mg PO HS 02/19/14 10/08/19 Divalproex ER [Depakote ER] 500 mg PO HS 02/19/14 10/08/19 Melatonin 1 mg PO HS 02/19/14 10/08/19 Omeprazole 40 mg PO DAILY 02/19/14 10/08/19 risperiDONE 3 mg PO HS 02/19/14 10/08/19 Divalproex ER [Depakote ER] 250 mg PO HS 03/25/19 10/08/19 Docusate [Colace] 100 mg PO DAILY PRN 03/25/19 10/08/19 Loratadine [Claritin] 10 mg PO DAILY 03/25/19 10/08/19 lisinopriL [Zestril] 10 mg PO DAILY 03/25/19 10/08/19 Cholecalciferol (Vitamin D3) 125 mcg PO DAILY 10/08/19 10/08/19 [Vitamin D3] Previous Rx's Medication Instructions Recorded Cephalexin [Keflex] 500 mg PO Q6HR #40 cap 04/30/20 Metoclopramide [Reglan] 10 mg PO Q6H PRN #20 tab 11/16/22 Ondansetron Odt [Zofran Odt] 4 mg PO Q8HR PRN #20 tab 11/16/22 Pantoprazole [Protonix] 40 mg PO DAILY 14 Days #14 tab 11/16/22 Allergies Allergy/AdvReac Type Severity Reaction Status Date / Time acetaminophen Allergy Rash/Hives/ Verified 11/28/22 22:35 [From Darvocet-N] Nausea propoxyphene napsylate Allergy Rash/Hives/ Verified 11/28/22 22:35 [From Darvocet-N] Nausea aspirin AdvReac Nausea & Verified 11/28/22 22:35 Vomiting hydrocodone bitartrate AdvReac Nausea & Verified 11/28/22 22:35 [From Vicodin] Vomiting Review of Systems ROS Other: All systems not noted in ROS Statement are negative. <Huong Laguna - Last Filed: 11/28/22 22:32> ROS Other: All systems not noted in ROS Statement are negative. <Charissa Aquino - Last Filed: 11/29/22 01:01> ROS Statement: Those systems with pertinent positive or pertinent negative responses have been documented in the HPI. Past Medical History Past Medical History: GERD/Reflux, Hypertension, Sleep Apnea/CPAP/BIPAP History of Any Multi-Drug Resistant Organisms: None Reported Past Surgical History: Orthopedic Surgery Additional Past Surgical History / Comment(s): lt hip and knee surgery as a child Past Anesthesia/Blood Transfusion Reactions: No Reported Reaction Past Psychological History: Bipolar, Schizophrenia Smoking Status: Current every day smoker Past Alcohol Use History: None Reported Past Drug Use History: None Reported <Huong Laguna - Last Filed: 11/28/22 22:32> General Exam <Huong Laguna - Last Filed: 11/28/22 22:32> Limitations: no limitations General appearance: alert, in no apparent distress Head exam: Present: atraumatic, normocephalic, normal inspection Eye exam: Present: normal appearance, PERRL, EOMI. Absent: scleral icterus, conjunctival injection, periorbital swelling ENT exam: Present: normal exam, mucous membranes moist Neck exam: Present: normal inspection. Absent: tenderness, meningismus, lymphadenopathy Respiratory exam: Present: normal lung sounds bilaterally. Absent: respiratory distress, wheezes, rales, rhonchi, stridor Cardiovascular Exam: Present: regular rate, normal rhythm, normal heart sounds. Absent: systolic murmur, diastolic murmur, rubs, gallop, clicks GI/Abdominal exam: Present: soft, normal bowel sounds. Absent: distended, tenderness, guarding, rebound, rigid Extremities exam: Present: tenderness (Left-sided dorsal lateral wrist, anatomical snuffbox), normal capillary refill, other (Radial pulses 2+). Absent: full ROM (Decreased range of motion at left wrist and fingers due to pain) Back exam: Present: normal inspection Neurological exam: Present: alert, oriented X3 Psychiatric exam: Present: normal affect, normal mood Skin exam: Present: warm, dry, intact, normal color. Absent: rash <Charissa Aquino - Last Filed: 11/29/22 01:01> - General Exam Comments Initial Comments: Visual Physical Exam Vital signs reviewed General: Well-appearing, nontoxic, no acute distress. Head: Normocephalic, atraumatic Eyes: PERRLA, EOMI ENT: Airway patent Chest: Nonlabored breathing Skin: No visual rash, normal skin tone Neuro: Alert and oriented 3 Musculoskeletal: No gross abnormalities (Huong Laguna) Course Vital Signs 11/28/22 11/29/22 22:32 00:51 Temperature 98.3 F Pulse Rate 71 65 Respiratory 20 18 Rate Blood Pressure 131/81 132/85 O2 Sat by Pulse 97 98 Oximetry Medical Decision Making <Charissa Aquino - Last Filed: 11/29/22 01:01> - Medical Decision Making Was pt. sent in by a medical professional or institution (, PA, TRAINING ADMINISTRATOR, urgent care, hospital, or correction...) When possible be specific @ -No Did you speak to anyone other than the patient for history (EMS, parent, family, police, friend...)? What history was obtained from this source @ -No Did you review nursing and triage notes (agree or disagree)? Why? @ -I reviewed and agree with nursing and triage notes Were old charts reviewed (outside hosp., previous admission, EMS record, old EKG, old radiological studies, urgent care reports/EKG's, correction records)? Report findings @ -No old charts were reviewed Differential Diagnosis (chest pain, altered mental status, abdominal pain women, abdominal pain men, vaginal bleeding, weakness, fever, dyspnea, syncope, headache, dizziness, GI bleed, back pain, seizure, CVA, palpatations, mental health, musculoskeletal)? @ -Differential Musculoskeletal Muscular strain, contusion, ligament sprain, fracture, arthritis, septic arthritis, bursitis, cellulitis, muscle spasm, nerve compression, DVT, arterial occlusion, herpes zoster, electrolyte abnormality, tumor.... This is not meant to be in all inclusive liste EKG interpreted by me (3pts min.). @ -None X-rays interpreted by me (1pt min.). @ -X-ray of the left wrist shows old fracture of scaphoid CT interpreted by me (1pt min.). @ -None done U/S interpreted by me (1pt. min.). @ -None done What testing was considered but not performed or refused? (CT, X-rays, U/S, labs)? Why? @ -None What meds were considered but not given or refused? Why? @ -None Did you discuss the management of the patient with other professionals (professionals i.e. , PA, TRAINING ADMINISTRATOR, lab, RT, psych nurse, social welfare administrator, instructional support services director, teacher, landing signal officer, returned case inspector)? Give summary @ -Management discussed with Ktahy Hurd with [facility] Was smoking cessation discussed for >3mins.? @ -No Was critical care preformed (if so, how long)? @ -No Were there social determinants of health that impacted care today? How? (Homelessness, low income, unemployed, alcoholism, drug addiction, transportation, low edu. Level, literacy, decrease access to med. care, long term, rehab)? @ -No Was there de-escalation of care discussed even if they declined (Discuss DNR or withdrawal of care, Hospice)? DNR status @ -No What co-morbidities impacted this encounter? (DM, HTN, Smoking, COPD, CAD, Cancer, CVA, ARF, Chemo, Hep., AIDS, mental health diagnosis, sleep apnea, morbid obesity)? @ -None Was patient admitted / discharged? Hospital course, mention meds given and route, prescriptions, significant lab abnormalities, going to OR and other pertinent info. @ -Discharged. Patient presented to emergency department chief complaining of left dorsal lateral wrist pain that radiates to his fingers starting yesterday. He declines any injury of the hand or wrist. He reports worsening pain with movement of the wrist and fingers. There is no evident erythema or significant swelling. He is not having any pain at the elbow or shoulder and nose without limitation at these joints. XR of wrist obtained which showed an old fracture of the scaphoid waist with sclerosis of the proximal fragment concerning for AVN. This was discussed with Kathy Hurd with [facility] who recommended outpatient follow-up with Dr. Nichols and splinting. Patient was placed in a thumb spica and given information for follow up with Dr. Nichols. Patient understanding and agreeable with plan. Patient stable at time of discharge Case discussed my attending, Dr. Posey Undiagnosed new problem with uncertain prognosis? @ -No Drug Therapy requiring intensive monitoring for toxicity (Heparin, Nitro, Insulin, Cardizem)? @ -No Were any procedures done? @ -No Diagnosis/symptom? @ -old scaphoid fracture with possible AVN Acute, or Chronic, or Acute on Chronic? @ -acute on chronic Uncomplicated (without systemic symptoms) or Complicated (systemic symptoms)? @ -uncomplicated Side effects of treatment? @ -No Exacerbation, Progression, or Severe Exacerbation? @ -No Poses a threat to life or bodily function? How? (Chest pain, [place], [place], pneumonia, PE, COPD, DKA, ARF, appy, cholecystitis, CVA, Diverticulitis, Homicidal, Suicidal, threat to staff... and all critical care pts) @ -No (Charissa Aquino) Disposition <Huong Laguna - Last Filed: 11/28/22 22:32> Is patient prescribed a controlled substance at d/c from ED?: No Time of Disposition: 00:44 <Charissa Aquino - Last Filed: 11/29/22 01:01> Clinical Impression: Scaphoid fracture of wrist Disposition: HOME SELF-CARE Condition: Stable Instructions (If sedation given, give patient instructions): Hand Fracture (ED) Additional Instructions: Follow-up with Dr. Nichols's office tomorrow. Take Tylenol as needed for pain. Return to the emergency department for new or worsening symptoms. Referrals: [facility] [Primary Care Provider] - 1-2 days Hardy Nichols DO [Doctor of Osteopathic Medicine] - 1-2 days
[2022-11-28 22:35] VITALS: TEMP 98.3
--- NOTE | 2022-11-28 23:16 | XR ---
EXAM: XR Left Wrist Complete, 3 or More Views CLINICAL HISTORY: ITS.REASON XR Reason: pain TECHNIQUE: Frontal, lateral and oblique views of the left wrist. COMPARISON: No relevant prior studies available. FINDINGS: Bones/joints: Old fracture of the scaphoid waist, with sclerosis of the proximal fragment, concerning for AVN. No acute fracture or dislocation. Soft tissues: Unremarkable. No radiopaque foreign body. IMPRESSION: 1. No acute fracture or dislocation. 2. 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
[2022-11-29 00:53] VITALS: BP 132/85; PULSE 65; RESP 18
== END 2022-11-29 00:52 | disposition home or self-care (01) ==
LOC: EC 22:00
DX: S62.032A Displaced fracture of proximal third of navicular [scaphoid] bone of left wrist, initial encounter for closed fracture (principal); I10 Essential (primary) hypertension; F17.200 Nicotine dependence, unspecified, uncomplicated; K21.9 Gastro-esophageal reflux disease without esophagitis; F31.9 Bipolar disorder, unspecified; Z79.899 Other long term (current) drug therapy; Z88.6 Allergy status to analgesic agent; Z88.8 Allergy status to other drugs, medicaments and biological substances; X58.XXXA Exposure to other specified factors, initial encounter
CPT/HCPCS: 99283

== ENCOUNTER 2023-02-05 20:53 | Emergency (ER) | payer MEDICARE, OTHER ==
[2023-02-05 21:54] VITALS: BP 143/102; PULSE 84; RESP 18; TEMP 98.5
[2023-02-05] MEDS ORDERED: DIPH,PERTUS(ACELL)TETVAC-LF 0.5 ML VIAL IM ONE (22:08)
[2023-02-05] MEDS ORDERED: IBUPROFEN 800 MG TAB PO STA (22:09)
--- NOTE | 2023-02-05 22:33 | XR ---
EXAM: XR Right Foot Complete, 3 or More Views CLINICAL HISTORY: ITS.REASON XR Reason: possible foreign body TECHNIQUE: Frontal, lateral and oblique views of the right foot. COMPARISON: No relevant prior studies available. FINDINGS: Bones/joints: Unremarkable. No acute fracture. No dislocation. Soft tissues: Unremarkable. No radiopaque foreign body. Other findings: Bipartite medial sesamoid. 12 mm heel spur. IMPRESSION: No acute findings in the right foot.
--- NOTE | 2023-02-05 23:09 | ED ---
Skin/Abscess/FB HPI - General Chief complaint: Skin/Abscess/Foreign Body Stated complaint: Glass stuck in foot Time Seen by Provider: 02/05/23 21:42 Source: patient Mode of arrival: ambulatory - History of Present Illness Initial comments: Patient is a 52-year-old male presents to the emergency department for possible glass stuck in right foot. Patient stepped on a piece of sharp glass today which cut through his boot. His friend pulled the glass out of his foot but patient believes a piece is still in there. He reports mild pain. Last tetanus was 6-8 years ago. Or, chills, nausea, vomiting. - Related Data Home Medications Medication Instructions Recorded Confirmed Benztropine Mesylate [Cogentin] 1 mg PO DAILY 02/19/14 10/08/19 Citalopram Hydrobromide [CeleXA] 20 mg PO HS 02/19/14 10/08/19 Divalproex ER [Depakote ER] 500 mg PO HS 02/19/14 10/08/19 Melatonin 1 mg PO HS 02/19/14 10/08/19 Omeprazole 40 mg PO DAILY 02/19/14 10/08/19 risperiDONE 3 mg PO HS 02/19/14 10/08/19 Divalproex ER [Depakote ER] 250 mg PO HS 03/25/19 10/08/19 Docusate [Colace] 100 mg PO DAILY PRN 03/25/19 10/08/19 Loratadine [Claritin] 10 mg PO DAILY 03/25/19 10/08/19 lisinopriL [Zestril] 10 mg PO DAILY 03/25/19 10/08/19 Cholecalciferol (Vitamin D3) 125 mcg PO DAILY 10/08/19 10/08/19 [Vitamin D3] Previous Rx's Medication Instructions Recorded Cephalexin [Keflex] 500 mg PO Q6HR #40 cap 04/30/20 Metoclopramide [Reglan] 10 mg PO Q6H PRN #20 tab 11/16/22 Ondansetron Odt [Zofran Odt] 4 mg PO Q8HR PRN #20 tab 11/16/22 Pantoprazole [Protonix] 40 mg PO DAILY 14 Days #14 tab 11/16/22 Ibuprofen [Motrin] 800 mg PO Q8HR PRN #30 tab 02/05/23 Allergies Allergy/AdvReac Type Severity Reaction Status Date / Time acetaminophen Allergy Rash/Hives/ Verified 02/05/23 21:42 [From Darvocet-N] Nausea propoxyphene napsylate Allergy Rash/Hives/ Verified 02/05/23 21:42 [From Darvocet-N] Nausea aspirin AdvReac Nausea & Verified 02/05/23 21:42 Vomiting hydrocodone bitartrate AdvReac Nausea & Verified 02/05/23 21:42 [From Vicodin] Vomiting Review of Systems ROS Statement: Those systems with pertinent positive or pertinent negative responses have been documented in the HPI. ROS Other: All systems not noted in ROS Statement are negative. Past Medical History Past Medical History: GERD/Reflux, Hypertension, Sleep Apnea/CPAP/BIPAP History of Any Multi-Drug Resistant Organisms: None Reported Past Surgical History: Orthopedic Surgery Additional Past Surgical History / Comment(s): lt hip and knee surgery as a child Past Anesthesia/Blood Transfusion Reactions: No Reported Reaction Past Psychological History: Bipolar, Schizophrenia Smoking Status: Current every day smoker Past Alcohol Use History: None Reported Past Drug Use History: None Reported General Exam General appearance: alert Respiratory exam: Present: normal lung sounds bilaterally. Absent: respiratory distress, wheezes, rales, rhonchi, stridor Cardiovascular Exam: Present: regular rate, normal rhythm, normal heart sounds. Absent: systolic murmur, diastolic murmur, rubs, gallop, clicks Extremities exam: Present: other (0.5 cm abrasion dorsal forefoot no laceration or foreign body) Neurological exam: Present: alert Psychiatric exam: Present: normal affect, normal mood Skin exam: Present: warm, dry, intact, normal color. Absent: rash Course Vital Signs 02/05/23 21:38 Temperature 98.5 F Pulse Rate 84 Respiratory 18 Rate Blood Pressure 143/102 O2 Sat by Pulse 97 Oximetry Medical Decision Making - Medical Decision Making Was pt. sent in by a medical professional or institution (, PA, CONVENTIONAL UNDERWRITER, urgent care, hospital, or long-term...) When possible be specific @ -No Did you speak to anyone other than the patient for history (EMS, parent, family, police, friend...)? What history was obtained from this source @ -No Did you review nursing and triage notes (agree or disagree)? Why? @ -I reviewed and agree with nursing and triage notes Were old charts reviewed (outside hosp., previous admission, EMS record, old EKG, old radiological studies, urgent care reports/EKG's, long-term records)? Report findings @ -No old charts were reviewed Differential Diagnosis (chest pain, altered mental status, abdominal pain women, abdominal pain men, vaginal bleeding, weakness, fever, dyspnea, syncope, headache, dizziness, GI bleed, back pain, seizure, CVA, palpatations, mental health)? @ -not applicable EKG interpreted by me (3pts min.). @ -As above X-rays interpreted by me (1pt min.). @ no fracture or foreign body CT interpreted by me (1pt min.). @ -None done U/S interpreted by me (1pt. min.). @ -None done What testing was considered but not performed or refused? (CT, X-rays, U/S, labs)? Why? @ -None What meds were considered but not given or refused? Why? @ -None Did you discuss the management of the patient with other professionals (professionals i.e. , PA, CONVENTIONAL UNDERWRITER, lab, RT, psych nurse, social media coordinator, alumni secretary, teacher, textile technical officer, case monitor)? Give summary @ -No Was smoking cessation discussed for >3mins.? @ -No Was critical care preformed (if so, how long)? @ -No Were there social determinants of health that impacted care today? How? (Homelessness, low income, unemployed, alcoholism, drug addiction, transportation, low edu. Level, literacy, decrease access to med. care, usp, rehab)? @ -No Was there de-escalation of care discussed even if they declined (Discuss DNR or withdrawal of care, Hospice)? DNR status @ -No What co-morbidities impacted this encounter? (DM, HTN, Smoking, COPD, CAD, Cancer, CVA, ARF, Chemo, Hep., AIDS, mental health diagnosis, sleep apnea, morbid obesity)? @ -None Was patient admitted / discharged? Hospital course, mention meds given and route, prescriptions, significant lab abnormalities, going to OR and other pertinent info. @ -52-year-old presents for possible glass in foot. Patient has 0.5 cm abrasion dorsal forefoot no laceration. The region was irrigated thoroughly no foreign body noted. X-ray interpreted by myself showing no acute fracture or foreign body. Discussed wound care with patient he is discharged Undiagnosed new problem with uncertain prognosis? @ -No Drug Therapy requiring intensive monitoring for toxicity (Heparin, Nitro, Insulin, Cardizem)? @ -No Were any procedures done? @ -No Diagnosis/symptom? @ -abrasion Acute, or Chronic, or Acute on Chronic? @ acute Uncomplicated (without systemic symptoms) or Complicated (systemic symptoms)? @ -uncomplicated Side effects of treatment? @ -No Exacerbation, Progression, or Severe Exacerbation? @ -No Poses a threat to life or bodily function? How? (Chest pain, [place], [place], pneumonia, PE, COPD, DKA, ARF, appy, cholecystitis, CVA, Diverticulitis, Homicidal, Suicidal, threat to staff... and all critical care pts) @ -No Dr. Posey is my attending Disposition Clinical Impression: Abrasion Disposition: HOME SELF-CARE Condition: Good Instructions (If sedation given, give patient instructions): Abrasion (ED) Additional Instructions: Keep wound clean and dry. Follow-up with primary care provider in one to 2 days. Return to the emergency department if you experience new, concerning, or worsening symptoms, including well limited to, increased redness, swelling, drainage from the wound Prescriptions: Ibuprofen [Motrin] 800 mg PO Q8HR PRN #30 tab PRN Reason: Pain Is patient prescribed a controlled substance at d/c from ED?: No Referrals: [facility] [Primary Care Provider] - 1-2 days
== END 2023-02-05 23:22 | disposition home or self-care (01) ==
LOC: EC 20:53
DX: S90.811A Abrasion, right foot, initial encounter (principal); I10 Essential (primary) hypertension; G47.30 Sleep apnea, unspecified; K21.9 Gastro-esophageal reflux disease without esophagitis; F31.9 Bipolar disorder, unspecified; F17.200 Nicotine dependence, unspecified, uncomplicated; Z79.899 Other long term (current) drug therapy; Z88.5 Allergy status to narcotic agent; Z88.8 Allergy status to other drugs, medicaments and biological substances; Z23 Encounter for immunization; W25.XXXA Contact with sharp glass, initial encounter
CPT/HCPCS: 90471; 90715; 99283

== ENCOUNTER 2023-03-04 19:34 | Emergency (ER) | payer MEDICARE, OTHER ==
[2023-03-04 20:23] VITALS: TEMP 97.9
[2023-03-04] MEDS ORDERED: IBUPROFEN 600 MG TAB PO STA (20:29)
[2023-03-04 21:06] LABS: Appearance,Urine Clear (Clear); Bilirubin,Urine Negative (Negative); Blood,Urine Negative (Negative); Color,Urine Light Yellow; Glucose,Urine (UA) Negative (Negative); Ketones,Urine Negative (Negative); Leukocyte Esterase,Urine Negative (Negative); Nitrite,Urine Negative (Negative); Protein,Urine Negative (Negative); Specific Gravity,Urine 1.021 (1.001-1.035)
--- NOTE | 2023-03-04 21:07 | ED ---
General Adult HPI - General Chief complaint: Extremity Problem,Nontraumatic Stated complaint: Left foot pain Time Seen by Provider: 03/04/23 20:20 Source: patient, RN notes reviewed Mode of arrival: ambulatory Limitations: no limitations - History of Present Illness Initial comments: Patient is a 52-year-old male presented ER with a chief complaint of left foot pain. Patient states he he injured it as a child. He states the pain started up again. He states it hurts to walk and he has numbness to his foot. Patient also has a complaint of dysuria. He states that his urine is dark yellow and it azul when he urinates. Patient also is complaining of hernia pain. Patient states he has been having diarrhea recently. Patient denies any shortness of breath, chest pain, headache, peripheral edema. - Related Data Home Medications Medication Instructions Recorded Confirmed Benztropine Mesylate [Cogentin] 1 mg PO DAILY 02/19/14 10/08/19 Citalopram Hydrobromide [CeleXA] 20 mg PO HS 02/19/14 10/08/19 Divalproex ER [Depakote ER] 500 mg PO HS 02/19/14 10/08/19 Melatonin 1 mg PO HS 02/19/14 10/08/19 Omeprazole 40 mg PO DAILY 02/19/14 10/08/19 risperiDONE 3 mg PO HS 02/19/14 10/08/19 Divalproex ER [Depakote ER] 250 mg PO HS 03/25/19 10/08/19 Docusate [Colace] 100 mg PO DAILY PRN 03/25/19 10/08/19 Loratadine [Claritin] 10 mg PO DAILY 03/25/19 10/08/19 lisinopriL [Zestril] 10 mg PO DAILY 03/25/19 10/08/19 Cholecalciferol (Vitamin D3) 125 mcg PO DAILY 10/08/19 10/08/19 [Vitamin D3] Previous Rx's Medication Instructions Recorded Cephalexin [Keflex] 500 mg PO Q6HR #40 cap 04/30/20 Metoclopramide [Reglan] 10 mg PO Q6H PRN #20 tab 11/16/22 Ondansetron Odt [Zofran Odt] 4 mg PO Q8HR PRN #20 tab 11/16/22 Pantoprazole [Protonix] 40 mg PO DAILY 14 Days #14 tab 11/16/22 Ibuprofen [Motrin] 800 mg PO Q8HR PRN #30 tab 02/05/23 Allergies Allergy/AdvReac Type Severity Reaction Status Date / Time acetaminophen Allergy Rash/Hives/ Verified 03/04/23 20:05 [From Darvocet-N] Nausea propoxyphene napsylate Allergy Rash/Hives/ Verified 03/04/23 20:05 [From Darvocet-N] Nausea aspirin AdvReac Nausea & Verified 03/04/23 20:05 Vomiting hydrocodone bitartrate AdvReac Nausea & Verified 03/04/23 20:05 [From Vicodin] Vomiting Review of Systems ROS Statement: Those systems with pertinent positive or pertinent negative responses have been documented in the HPI. ROS Other: All systems not noted in ROS Statement are negative. Past Medical History Past Medical History: GERD/Reflux, Hypertension, Sleep Apnea/CPAP/BIPAP History of Any Multi-Drug Resistant Organisms: None Reported Past Surgical History: Hernia Repair, Orthopedic Surgery Additional Past Surgical History / Comment(s): lt hip and knee surgery as a child Past Anesthesia/Blood Transfusion Reactions: No Reported Reaction Past Psychological History: Bipolar, Schizophrenia Smoking Status: Current every day smoker Past Alcohol Use History: None Reported Past Drug Use History: None Reported General Exam Limitations: no limitations General appearance: alert, in no apparent distress Respiratory exam: Present: normal lung sounds bilaterally. Absent: respiratory distress, wheezes, rales, rhonchi, stridor Cardiovascular Exam: Present: regular rate, normal rhythm, normal heart sounds. Absent: systolic murmur, diastolic murmur, rubs, gallop, clicks GI/Abdominal exam: Present: soft, tenderness (suprapubic), normal bowel sounds. Absent: distended, guarding, rebound, rigid Extremities exam: Present: normal inspection, other (2+ left dorsalis pedis pulse. No ecchymosis or edema noted. Limited range of motion due to pain patient reports decreased sensation.) Neurological exam: Present: alert, oriented X3, CN II-XII intact Psychiatric exam: Present: normal affect, normal mood Course Vital Signs 03/04/23 20:05 Temperature 97.9 F Pulse Rate 87 Respiratory 18 Rate Blood Pressure 153/106 O2 Sat by Pulse 97 Oximetry Medical Decision Making - Medical Decision Making Was pt. sent in by a medical professional or institution (, MARGARITA, GLASS TECHNOLOGIST, urgent care, hospital, or correction...) When possible be specific @ -No Did you speak to anyone other than the patient for history (EMS, parent, family, police, friend...)? What history was obtained from this source @ -No Did you review nursing and triage notes (agree or disagree)? Why? @ -I reviewed and agree with nursing and triage notes Were old charts reviewed (outside hosp., previous admission, EMS record, old EKG, old radiological studies, urgent care reports/EKG's, correction records)? Report findings @ -No old charts were reviewed Differential Diagnosis (chest pain, altered mental status, abdominal pain women, abdominal pain men, vaginal bleeding, weakness, fever, dyspnea, syncope, headache, dizziness, GI bleed, back pain, seizure, CVA, palpatations, mental health, musculoskeletal)? @ -[Differential Musculoskeletal:Muscular strain, contusion, ligament sprain, fracture, arthritis, septic arthritis, bursitis, cellulitis, muscle spasm, nerve compression, DVT, arterial occlusion, herpes zoster, electrolyte abnormality, tumor.... This is not meant to be in all inclusive list EKG interpreted by me (3pts min.). @ -None X-rays interpreted by me (1pt min.). @ -Left foot x-ray shows no acute fractures or dislocations. KUB shows a nonspecific gas bowel pattern. CT interpreted by me (1pt min.). @ -None done U/S interpreted by me (1pt. min.). @ -None done What testing was considered but not performed or refused? (CT, X-rays, U/S, labs)? Why? @ -None What meds were considered but not given or refused? Why? @ -None Did you discuss the management of the patient with other professionals (professionals i.e. MARGARITA Aparicio, GLASS TECHNOLOGIST, lab, RT, psych nurse, manager social media, military lawyer, teacher, sales and service officer, upper caser)? Give summary @ -No Was smoking cessation discussed for >3mins.? @ -No Was critical care preformed (if so, how long)? @ -No Were there social determinants of health that impacted care today? How? (Homelessness, low income, unemployed, alcoholism, drug addiction, transportation, low edu. Level, literacy, decrease access to med. care, halfway, rehab)? @ -No Was there de-escalation of care discussed even if they declined (Discuss DNR or withdrawal of care, Hospice)? DNR status @ -No What co-morbidities impacted this encounter? (DM, HTN, Smoking, COPD, CAD, Cancer, CVA, ARF, Chemo, Hep., AIDS, mental health diagnosis, sleep apnea, morbid obesity)? @ -None Was patient admitted / discharged? Hospital course, mention meds given and route, prescriptions, significant lab abnormalities, going to OR and other pertinent info. @ -Discharge. On examination patient's vitals remained stable. Left foot x- ray shows no acute fractures or dislocations. KUB shows nonspecific gas bowel pattern. Urinalysis was unimpressive. Patient received by mouth Motrin for pain control in the ER. Patient will be discharged home in stable condition with follow-up to PCP. Patient exposed understanding and agreement with care plan. Undiagnosed new problem with uncertain prognosis? @ -No Drug Therapy requiring intensive monitoring for toxicity (Heparin, Nitro, Insulin, Cardizem)? @ -No Were any procedures done? @ -No Diagnosis/symptom? @ -Left foot pain Acute, or Chronic, or Acute on Chronic? @ -Acute Uncomplicated (without systemic symptoms) or Complicated (systemic symptoms)? @ -[Uncomplicated Side effects of treatment? @ -No Exacerbation, Progression, or Severe Exacerbation? @ -No Poses a threat to life or bodily function? How? (Chest pain, [place], [place], pneumonia, PE, COPD, DKA, ARF, appy, cholecystitis, CVA, Diverticulitis, Homicidal, Suicidal, threat to staff... and all critical care pts) @ -No - Lab Data Lab Results 03/04/23 Range/Units 20:47 Urine Color Light Yellow Urine Appearance Clear (Clear) Urine pH 7.0 (5.0-8.0) Ur Specific [place] 1.021 (1.001-1.035) Urine Protein Negative (Negative) Urine Glucose (UA) Negative (Negative) Urine Ketones Negative (Negative) Urine Blood Negative (Negative) Urine Nitrite Negative (Negative) Urine Bilirubin Negative (Negative) Urine Urobilinogen 2.0 (<2.0) mg/dL Ur Leukocyte Esterase Negative (Negative) - Radiology Data Radiology results: report reviewed, image reviewed Disposition Clinical Impression: Left foot pain Disposition: HOME SELF-CARE Condition: Stable Additional Instructions: Please return to the Emergency Department if symptoms worsen or any other concerns. Is patient prescribed a controlled substance at d/c from ED?: No Referrals: Kathi Arredondo MD [Primary Care Provider] - 1-2 days Time of Disposition: 22:32
--- NOTE | 2023-03-04 21:36 | XR ---
EXAMINATION TYPE: XR KUB DATE OF EXAM: 03/04/2023 8:35 PM CLINICAL INDICATION:Male, 52 years old with history of pain; [facility] COMPARISON: None. TECHNIQUE: Upright radiographic view/s of the abdomen/pelvis obtained. FINDINGS: The bowel gas pattern is nonspecific, likely nonobstructive without dilated loops of small or large b owel. Fecal material and gas are demonstrated throughout the colon and rectum. Moderate colonic stool burden. No gross evidence of organomegaly. No evidence of free air beneath the diaphragm.. No pathol ogic calcifications are seen. Osseous structures appear grossly intact. Mild lumbar levoscoliosis. Mild bilateral hip arthropathy. Extrinsic radiodensities project over the right proximal femur and pe lvis. IMPRESSION: Nonspecific, likely nonobstructive bowel gas pattern. Moderate colonic stool. No acute radiographic a bnormality. If concern persists, consider follow-up radiographs and/or CT.
--- NOTE | 2023-03-04 22:28 | XR ---
EXAMINATION TYPE: XR foot complete LT DATE OF EXAM: 03/04/2023 8:35 PM CLINICAL INDICATION:Male, 52 years old with history of pain; technologist reports general left foot p ain no injury COMPARISON: None. TECHNIQUE: Three views left foot were obtained. FINDINGS: No evidence of acute fracture or significant malalignment. Old healed fracture deformity of the dista l fifth metatarsal shaft. No osseous destructive process or periostitis. Joint spaces are maintained. Soft tissues are unremarkable. No radiopaque foreign body is seen. IMPRESSION: No evidence of acute fracture or dislocation.
[2023-03-04 23:01] VITALS: BP 165/99; PULSE 80; RESP 20
== END 2023-03-04 22:39 | disposition home or self-care (01) ==
LOC: EC 19:34
DX: M79.672 Pain in left foot (principal); K21.9 Gastro-esophageal reflux disease without esophagitis; I10 Essential (primary) hypertension; F31.9 Bipolar disorder, unspecified; F17.200 Nicotine dependence, unspecified, uncomplicated; Z88.5 Allergy status to narcotic agent; Z88.6 Allergy status to analgesic agent; Z88.8 Allergy status to other drugs, medicaments and biological substances; Z79.899 Other long term (current) drug therapy
CPT/HCPCS: 74018; 81003; 99284

== ENCOUNTER 2023-03-07 17:29 | Emergency (ER) | payer MEDICARE, OTHER ==
[2023-03-07 18:27] VITALS: RESP 18; TEMP 98.3
[2023-03-07 20:45] LABS: ALT 36 U/L (4-49); AST 26 U/L (17-59); African American GFR (CKD) >90 (>60 ml/min/1.73 sqM); Albumin 4.5 g/dL (3.5-5.0); Alkaline Phosphatase 51 U/L (38-126); Anion Gap 9 mmol/L; Blood Urea Nitrogen 15 mg/dL (9-20); Carbon Dioxide 28 mmol/L (22-30); Chloride 101 mmol/L (98-107); Glucose 95 mg/dL (74-99); Non-African American GFR(CKD) >90 (>60 ml/min/1.73 sqM); Potassium 4.1 mmol/L (3.5-5.1); Sodium 138 mmol/L (137-145); Total Bilirubin 0.4 mg/dL (0.2-1.3); Total Protein 7.7 g/dL (6.3-8.2)
[2023-03-07 20:47] LABS: Basophils % (A) 0 %; Eosinophils # (A) 0.1 k/uL (0-0.7); Eosinophils % (A) 1 %; HGB 15.4 gm/dL (13.0-17.5); Lymphocytes # (A) 2.1 k/uL (1.0-4.8); Lymphocytes % (A) 31 %; MCH 30.7 pg (25.0-35.0); MCHC 33.5 g/dL (31.0-37.0); MCV 91.8 fL (80.0-100.0); Mean Platelet Volume 8.2; Monocytes # (A) 0.5 k/uL (0-1.0); Monocytes % (A) 7 %; Neutrophils % (A) 59 %; Platelet Count 299 k/uL (150-450); RBC 5.01 m/uL (4.30-5.90); RDW 12.7 % (11.5-15.5); WBC 6.9 k/uL (3.8-10.6)
--- NOTE | 2023-03-07 20:49 | CT ---
EXAMINATION TYPE: CT abdomen pelvis w con DATE OF EXAM: 03/07/2023 COMPARISON: 03/25/2019 HISTORY: Lower abdominal pain x [address] DLP: 1290.7 mGycm CONTRAST: CT scan of the abdomen and pelvis is performed without Oral Contrast and with IV Contrast, patient in jected with 100 cc mL of Isovue 300. FINDINGS: LUNG BASES-: No visible nodule. No infiltrate. LIVER/GB: No calcified gallstones. No space occupying hepatic lesion. Biliary tree is of normal ca liber. PANCREAS: No inflammation. No distinct mass. SPLEEN: No splenic enlargement. No lesion seen. ADRENALS: No nodule. No thickening. KIDNEYS/BLADDER: No hydronephrosis. No nephrolithiasis. No distinct renal mass. Decompressed urina ry bladder. BOWEL: Normal appendix. Normal bowel caliber. No inflammation. The ileocecal valve lipoma noted inc identally. GENITAL ORGANS: No gross abnormality. LYMPH NODES: No greater than 1cm abdominal or pelvic lymph nodes are appreciated. AORTA: No significant abnormality. OSSEOUS STRUCTURES: No significant abnormality is seen. OTHER: Right inguinal hernia with strandy attenuation. Correlate clinically. IMPRESSION: 1. Normal appendix. No inflammatory changes of the bowel. 2.Right inguinal hernia with strandy attenuation. No evidence for incarcerated bowel. Correlate clini cristin.
[2023-03-07 21:18] LABS: Mucus,Urine Rare /hpf; RBC,Urine 1 /hpf (0-5); WBC,Urine <1 /hpf (0-5)
[2023-03-07 21:20] LABS: Appearance,Urine Clear (Clear); Bilirubin,Urine Negative (Negative); Blood,Urine Trace (Negative); Color,Urine Yellow; Glucose,Urine (UA) Negative (Negative); Ketones,Urine Negative (Negative); Leukocyte Esterase,Urine Negative (Negative); Nitrite,Urine Negative (Negative); PH, Urine 6.5 (5.0-8.0); Protein,Urine Negative (Negative); Specific Gravity,Urine 1.025 (1.001-1.035)
[2023-03-07] MEDS ORDERED: KETOROLAC 15 MG/ML 1 ML VIAL IVP STA (23:33)
--- NOTE | 2023-03-07 23:34 | ED ---
Abdominal Pain HPI - General Chief Complaint: Abdominal Pain Stated Complaint: hernia pain Time Seen by Provider: 03/07/23 21:54 Source: patient Mode of arrival: ambulatory Limitations: no limitations - History of Present Illness Initial Comments: 52-year-old male presenting with chief complaint of hernia pain. Patient has history of hernia repair 6-8 years ago. He's been having increased pain over the site which is normal right lower quadrant for several days. He was seen here on Monday and had an x-ray. He is having regular bowel movements. No nausea or vomiting. No fevers or chills. No hematochezia or melena. No dysuria or hematuria. - Related Data Home Medications Medication Instructions Recorded Confirmed Benztropine Mesylate [Cogentin] 1 mg PO DAILY 02/19/14 10/08/19 Citalopram Hydrobromide [CeleXA] 20 mg PO HS 02/19/14 10/08/19 Divalproex ER [Depakote ER] 500 mg PO HS 02/19/14 10/08/19 Melatonin 1 mg PO HS 02/19/14 10/08/19 Omeprazole 40 mg PO DAILY 02/19/14 10/08/19 risperiDONE 3 mg PO HS 02/19/14 10/08/19 Divalproex ER [Depakote ER] 250 mg PO HS 03/25/19 10/08/19 Docusate [Colace] 100 mg PO DAILY PRN 03/25/19 10/08/19 Loratadine [Claritin] 10 mg PO DAILY 03/25/19 10/08/19 lisinopriL [Zestril] 10 mg PO DAILY 03/25/19 10/08/19 Cholecalciferol (Vitamin D3) 125 mcg PO DAILY 10/08/19 10/08/19 [Vitamin D3] Previous Rx's Medication Instructions Recorded Cephalexin [Keflex] 500 mg PO Q6HR #40 cap 04/30/20 Metoclopramide [Reglan] 10 mg PO Q6H PRN #20 tab 11/16/22 Ondansetron Odt [Zofran Odt] 4 mg PO Q8HR PRN #20 tab 11/16/22 Pantoprazole [Protonix] 40 mg PO DAILY 14 Days #14 tab 11/16/22 Ibuprofen [Motrin] 800 mg PO Q8HR PRN #30 tab 02/05/23 Ibuprofen 600 mg PO Q6H PRN #30 tab 03/07/23 Allergies Allergy/AdvReac Type Severity Reaction Status Date / Time acetaminophen Allergy Rash/Hives/ Verified 03/04/23 20:05 [From Darvocet-N] Nausea propoxyphene napsylate Allergy Rash/Hives/ Verified 03/04/23 20:05 [From Darvocet-N] Nausea aspirin AdvReac Nausea & Verified 03/04/23 20:05 Vomiting hydrocodone bitartrate AdvReac Nausea & Verified 03/04/23 20:05 [From Vicodin] Vomiting Review of Systems ROS Statement: Those systems with pertinent positive or pertinent negative responses have been documented in the HPI. ROS Other: All systems not noted in ROS Statement are negative. Past Medical History Past Medical History: GERD/Reflux, Hypertension, Sleep Apnea/CPAP/BIPAP History of Any Multi-Drug Resistant Organisms: None Reported Past Surgical History: Hernia Repair, Orthopedic Surgery Additional Past Surgical History / Comment(s): lt hip and knee surgery as a child Past Anesthesia/Blood Transfusion Reactions: No Reported Reaction Past Psychological History: Bipolar, Schizophrenia Smoking Status: Current every day smoker Past Alcohol Use History: None Reported Past Drug Use History: None Reported General Exam Limitations: no limitations General appearance: alert, in no apparent distress Head exam: Present: atraumatic, normocephalic, normal inspection Eye exam: Present: normal appearance, EOMI Neck exam: Present: normal inspection, full ROM Respiratory exam: Present: normal lung sounds bilaterally. Absent: respiratory distress, wheezes, rales, rhonchi, stridor Cardiovascular Exam: Present: regular rate, normal rhythm, normal heart sounds. Absent: systolic murmur, diastolic murmur, rubs, gallop, clicks GI/Abdominal exam: Present: soft, hernia (Easily reducible right inguinal hernia). Absent: distended, tenderness, guarding, rebound, rigid Neurological exam: Present: alert, oriented X3 Psychiatric exam: Present: normal affect, normal mood Skin exam: Present: warm, dry, intact, normal color. Absent: rash Course Vital Signs 03/07/23 18:15 Temperature 98.3 F Pulse Rate 113 H Respiratory 18 Rate Blood Pressure 135/86 O2 Sat by Pulse 96 Oximetry Medical Decision Making - Medical Decision Making Was pt. sent in by a medical professional or institution (MARGARITA Aparicio, [employer] TECHNICIAN, urgent care, hospital, or long term...) When possible be specific @ -No Did you speak to anyone other than the patient for history (EMS, parent, family, police, friend...)? What history was obtained from this source @ -No Did you review nursing and triage notes (agree or disagree)? Why? @ -I reviewed and agree with nursing and triage notes Were old charts reviewed (outside hosp., previous admission, EMS record, old EKG, old radiological studies, urgent care reports/EKG's, long term records)? Report findings @ -No old charts were reviewed Differential Diagnosis (chest pain, altered mental status, abdominal pain women, abdominal pain men, vaginal bleeding, weakness, fever, dyspnea, syncope, headache, dizziness, GI bleed, back pain, seizure, CVA, palpatations, mental health, musculoskeletal)? @ -MDM Differential Abdominal Pain Men: Appendicitis, cholecystitis, diverticulosis, ischemic bowel, pancreatitis, hepatitis, UTI, gastroenteritis, AAA, incarcerated hernia, bowel obstruction, constipation, inflammatory bowel, hepatitis, peptic ulcer disease, splenic infarction, perforated viscus, testicular torsion... This is not meant to be an all-inclusive list EKG interpreted by me (3pts min.). @ -As above X-rays interpreted by me (1pt min.). @ None done CT interpreted by me (1pt min.). @ --Normal appendix. No inflammatory changes of the bowel. Right inguinal hernia with stranding attenuation. No evidence for incarcerated bowel. Correlate clinically. U/S interpreted by me (1pt. min.). @ -None done What testing was considered but not performed or refused? (CT, X-rays, U/S, labs)? Why? @ -None What meds were considered but not given or refused? Why? @ -None Did you discuss the management of the patient with other professionals (professionals i.e. MARGARITA Aparicio, [employer] TECHNICIAN, lab, RT, psych nurse, social media assistant, paper steamer, teacher, armoured corps officer, rifle case repairer)? Give summary @ -No Was smoking cessation discussed for >3mins.? @ -No Was critical care preformed (if so, how long)? @ -No Were there social determinants of health that impacted care today? How? (Homelessness, low income, unemployed, alcoholism, drug addiction, transportation, low edu. Level, literacy, decrease access to med. care, senior living, rehab)? @ -No Was there de-escalation of care discussed even if they declined (Discuss DNR or withdrawal of care, Hospice)? DNR status @ -No What co-morbidities impacted this encounter? (DM, HTN, Smoking, COPD, CAD, Cancer, CVA, ARF, Chemo, Hep., AIDS, mental health diagnosis, sleep apnea, morbid obesity)? @ -None Was patient admitted / discharged? Hospital course, mention meds given and route, prescriptions, significant lab abnormalities, going to OR and other pertinent info. @ -52-year-old male presenting with chief complaint of inguinal hernia pain. He was seen here recently for this same pain and received an x-ray. History and physical were conducted. Hernia is easily reducible. Lab work is grossly unremarkable. CT shows right inguinal hernia with no evidence of incarceration. Patient is educated on today's findings and supportive management at home. Follow-up with surgery. Follow-up with PCP. Report back to ER with any new or worsening symptoms. Discussed return parameters and answered all questions. Patient conveyed verbal understanding and agreed to the plan. I discussed this case in detail with my attending Dr. Puente Undiagnosed new problem with uncertain prognosis? @ -No Drug Therapy requiring intensive monitoring for toxicity (Heparin, Nitro, Insulin, Cardizem)? @ -No Were any procedures done? @ -No Diagnosis/symptom? @ -Inguinal hernia Acute, or Chronic, or Acute on Chronic? @ -Acute Uncomplicated (without systemic symptoms) or Complicated (systemic symptoms)? @ -uncomplicated Side effects of treatment? @ -No Exacerbation, Progression, or Severe Exacerbation? @ -No Poses a threat to life or bodily function? How? (Chest pain, USA, IA, pneumonia, PE, COPD, DKA, ARF, appy, cholecystitis, CVA, Diverticulitis, Homicidal, Suicidal, threat to staff... and all critical care pts) @ -No - Lab Data Result diagrams: 03/07/23 18:19 03/07/23 18:19 Lab Results 03/07/23 03/07/23 03/07/23 Range/Units 18:19 18:19 18:19 WBC 6.9 (3.8-10.6) k/uL RBC 5.01 (4.30-5.90) m/uL Hgb 15.4 (13.0-17.5) gm/dL Hct 46.0 (39.0-53.0) % MCV 91.8 (80.0-100.0) fL MCH 30.7 (25.0-35.0) pg MCHC 33.5 (31.0-37.0) g/dL RDW 12.7 (11.5-15.5) % Plt Count 299 (150-450) k/uL MPV 8.2 Neutrophils % 59 % Lymphocytes % 31 % Monocytes % 7 % Eosinophils % 1 % Basophils % 0 % Neutrophils # 4.0 (1.3-7.7) k/uL Lymphocytes # 2.1 (1.0-4.8) k/uL Monocytes # 0.5 (0-1.0) k/uL Eosinophils # 0.1 (0-0.7) k/uL Basophils # 0.0 (0-0.2) k/uL Sodium 138 (137-145) mmol/L Potassium 4.1 (3.5-5.1) mmol/L Chloride 101 (98-107) mmol/L Carbon Dioxide 28 (22-30) mmol/L Anion Gap 9 mmol/L BUN 15 (9-20) mg/dL Creatinine 0.74 (0.66-1.25) mg/dL Est GFR (CKD-EPI)AfAm >90 (>60 ml/min/1.73 sqM) Est GFR (CKD-EPI)NonAf >90 (>60 ml/min/1.73 sqM) Glucose 95 (74-99) mg/dL Plasma Lactic Acid John (0.7-2.0) mmol/L Calcium 9.0 (8.4-10.2) mg/dL Total Bilirubin 0.4 (0.2-1.3) mg/dL AST 26 (17-59) U/L ALT 36 (4-49) U/L Alkaline Phosphatase 51 (38-126) U/L Total Protein 7.7 (6.3-8.2) g/dL Albumin 4.5 (3.5-5.0) g/dL Urine Color Yellow Urine Appearance Clear (Clear) Urine pH 6.5 (5.0-8.0) Ur Specific [place] 1.025 (1.001-1.035) Urine Protein Negative (Negative) Urine Glucose (UA) Negative (Negative) Urine Ketones Negative (Negative) Urine Blood Trace (Negative) Urine Nitrite Negative (Negative) Urine Bilirubin Negative (Negative) Urine Urobilinogen 2.0 (<2.0) mg/dL Ur Leukocyte Esterase Negative (Negative) Urine RBC 1 (0-5) /hpf Urine WBC <1 (0-5) /hpf Urine Mucus Rare H (None) /hpf 03/07/23 Range/Units 18:19 WBC (3.8-10.6) k/uL RBC (4.30-5.90) m/uL Hgb (13.0-17.5) gm/dL Hct (39.0-53.0) % MCV (80.0-100.0) fL MCH (25.0-35.0) pg MCHC (31.0-37.0) g/dL RDW (11.5-15.5) % Plt Count (150-450) k/uL MPV Neutrophils % % Lymphocytes % % Monocytes % % Eosinophils % % Basophils % % Neutrophils # (1.3-7.7) k/uL Lymphocytes # (1.0-4.8) k/uL Monocytes # (0-1.0) k/uL Eosinophils # (0-0.7) k/uL Basophils # (0-0.2) k/uL Sodium (137-145) mmol/L Potassium (3.5-5.1) mmol/L Chloride (98-107) mmol/L Carbon Dioxide (22-30) mmol/L Anion Gap mmol/L BUN (9-20) mg/dL Creatinine (0.66-1.25) mg/dL Est GFR (CKD-EPI)AfAm (>60 ml/min/1.73 sqM) Est GFR (CKD-EPI)NonAf (>60 ml/min/1.73 sqM) Glucose (74-99) mg/dL Plasma Lactic Acid John 0.9 (0.7-2.0) mmol/L Calcium (8.4-10.2) mg/dL Total Bilirubin (0.2-1.3) mg/dL AST (17-59) U/L ALT (4-49) U/L Alkaline Phosphatase (38-126) U/L Total Protein (6.3-8.2) g/dL Albumin (3.5-5.0) g/dL Urine Color Urine Appearance (Clear) Urine pH (5.0-8.0) Ur Specific [place] (1.001-1.035) Urine Protein (Negative) Urine Glucose (UA) (Negative) Urine Ketones (Negative) Urine Blood (Negative) Urine Nitrite (Negative) Urine Bilirubin (Negative) Urine Urobilinogen (<2.0) mg/dL Ur Leukocyte Esterase (Negative) Urine RBC (0-5) /hpf Urine WBC (0-5) /hpf Urine Mucus (None) /hpf Disposition Clinical Impression: Inguinal hernia Disposition: HOME SELF-CARE Condition: Good Instructions (If sedation given, give patient instructions): Inguinal Hernia (ED) Additional Instructions: Follow-up with surgery. Report back to ER with any new or worsening symptoms. Prescriptions: Ibuprofen 600 mg PO Q6H PRN #30 tab PRN Reason: Pain Is patient prescribed a controlled substance at d/c from ED?: No Referrals: Kathi Arredondo MD [Primary Care Provider] - 1-2 days Jono Yuan MD [STAFF PHYSICIAN] - 1-2 days Time of Disposition: 23:34
[2023-03-07 23:46] VITALS: BP 128/79; PULSE 99
== END 2023-03-07 23:45 | disposition home or self-care (01) ==
LOC: EC 17:29
DX: K40.90 Unilateral inguinal hernia, without obstruction or gangrene, not specified as recurrent (principal); I10 Essential (primary) hypertension; K21.9 Gastro-esophageal reflux disease without esophagitis; G47.30 Sleep apnea, unspecified; F31.9 Bipolar disorder, unspecified; F17.200 Nicotine dependence, unspecified, uncomplicated; Z79.899 Other long term (current) drug therapy; Z88.5 Allergy status to narcotic agent; Z88.6 Allergy status to analgesic agent; Z88.8 Allergy status to other drugs, medicaments and biological substances
CPT/HCPCS: 36415; 80053; 83605; 85025; 81001; 74177; 99284; 96374; J1885; Q9967

== ENCOUNTER → 2023-03-16 | Outpatient (CLI) | payer MEDICARE, OTHER ==
[2023-03-16 15:38] LABS: Basophils # (A) 0.03 X 10*3/uL (0.00-0.10); Basophils % (A) 0.4 %; Eosinophils # (A) 0.11 X 10*3/uL (0.04-0.35); Eosinophils % (A) 1.6 %; HCT 47.3 % (39.6-50.0); HGB 15.4 g/dL (13.0-17.0); Lymphocytes # (A) 1.41 X 10*3/uL (0.90-5.00); MCH 29.8 pg (27.0-32.0); MCHC 32.6 g/dL (32.0-37.0); MCV 91.7 FL (80.0-97.0); Mean Platelet Volume 11.1 FL (9.5-12.2); Monocytes # (A) 0.55 X 10*3/uL (0.20-1.00); Monocytes % (A) 8.2 %; NRBC Per 100 WBC 0 X 10*3/uL (0.00-0.01); Neutrophils % (A) 68.5 %; Platelet Count 273 X 10*3/uL (140-440); RBC 5.16 X 10*6/uL (4.40-5.60); WBC 6.72 X 10*3/uL (4.50-10.00)
== END | disposition home or self-care (01) ==
LOC: LABPAT 08:19
PROVIDERS: ATTEND Surgery
DX: Z01.818 Encounter for other preprocedural examination (principal)
CPT/HCPCS: 36415; 85025; 86850; 86900; 86901; 93005

== ENCOUNTER 2023-03-21 08:37 | Day surgery (SDC) | payer MEDICARE, OTHER ==
[2023-03-16 13:51] VITALS: BMI 27.7
[~2023-03-21 08:37] MED LIST: ACETAMINOPHEN TAB 500 MG TAB PO PRN; DEXAMETHASONE SOD PHOSPHATE 4 MG/ML 1 ML VIAL IV ONE; HEPARIN SODIUM,PORCINE/PF 5,000 UNIT/0.5 ML SYRINGE SQ PRN; LACTATED RINGERS 1,000 ML IV SCH; LIDOCAINE 1% (10MG/ML) FOR IV START INTRADERMA PRN; ONDANSETRON 4 MG/2 ML VIAL IVP ONE; droPERidol 5 MG/2 ML VIAL IVP ONE; fentaNYL (PF) 50 MCG/ML 2 ML AMP IV PRN
[2023-03-21 10:16] VITALS: RESP 16
[2023-03-21] MEDS ORDERED: MIDAZOLAM 2 MG/2 ML VIAL IVP ONE (10:31)
--- NOTE | 2023-03-21 10:53 | P.ANPRN ---
Procedure Note - Anesthesia - Nerve Block Performed Bilateral Erector Spinae Single Time Out Performed: Yes Date of Procedure: 03/21/23 Procedure Start Time: : Procedure Stop Time: :41 Location of Patient: PreOp Indication: Acute Post-Operative Pain, Analgesia, Requested by Surgeon Sedation Type: Sedate with meaningful contact maintained Preparation: Sterile Prep Position: Sitting Catheter: None Needle Types: Pajunk Needle Gauge: 21 Ultrasound used to visualize needle placement: Yes Ultrasound used to observe medication spread: Yes Injectate: 0.5% Ropivacaine (see comment for volume) (Ropiv. 10ml+NS 10ml---- each side) Blood Aspirated: No Pain Paresthesia on Injection Noted: No Resistance on Injection: Normal Image Stored and Saved: Yes Events: Uneventful and Well Tolerated
[2023-03-21] MEDS ORDERED: LIDOCAINE 1% INJ 10MG/ML (20 ML MDV) ONE (11:57)
[2023-03-21] MEDS ORDERED: GLYCOPYRROLATE 0.2 MG/ML 2 ML VIAL ONE (11:57)
[2023-03-21] MEDS ORDERED: NEOSTIGMINE 1 MG/ML 10 ML VIAL ONE (11:57)
[2023-03-21] MEDS ORDERED: KETOROLAC 30 MG/ML 1 ML VIAL ONE (11:57)
[2023-03-21] MEDS ORDERED: fentaNYL (PF) 50 MCG/ML 2 ML AMP ONE (11:57)
[2023-03-21] MEDS ORDERED: ROCURONIUM 10 MG/ML (5 ML VIAL) IV ONE (11:57)
[2023-03-21] MEDS ORDERED: ROPIVACAINE 5 MG/ML 30 ML VIAL ONE (11:57)
[2023-03-21] MEDS ORDERED: SUCCINYLCHOLINE CHLORIDE 200 MG/10 ML VIAL IV ONE (11:57)
[2023-03-21] MEDS ORDERED: PROPOFOL 10 MG/ML 20 ML VIAL IV ONE (11:57)
[2023-03-21] MEDS ORDERED: SODIUM CHLORIDE 0.9% (PF) 10 ML VIAL ONE (11:57)
--- NOTE | 2023-03-21 11:59 | P.GSHP ---
History of Present Illness H&P Date: 03/21/23 Chief Complaint: Recurrent right inguinal hernia This is a 52-year-old male who presents today for laparoscopic robotic repair of recurrent right inguinal hernia. Past Medical History Past Medical History: GERD/Reflux, Hypertension, Sleep Apnea/CPAP/BIPAP History of Any Multi-Drug Resistant Organisms: None Reported Past Surgical History: Hernia Repair, Orthopedic Surgery Additional Past Surgical History / Comment(s): lt hip and knee surgery as a child Past Anesthesia/Blood Transfusion Reactions: No Reported Reaction Past Psychological History: Bipolar, Schizophrenia Smoking Status: Current every day smoker Past Alcohol Use History: None Reported Past Drug Use History: None Reported - Past Family History Mother Family Medical History: No Reported History Medications and Allergies Home Medications Medication Instructions Recorded Confirmed Type Benztropine Mesylate [Cogentin] 1 mg PO DAILY 02/19/14 03/21/23 History Citalopram Hydrobromide [CeleXA] 20 mg PO HS 02/19/14 03/21/23 History Divalproex ER [Depakote ER] 500 mg PO HS 02/19/14 03/21/23 History Melatonin 1 mg PO HS 02/19/14 03/21/23 History Omeprazole 40 mg PO DAILY 02/19/14 03/21/23 History risperiDONE 3 mg PO HS 02/19/14 03/21/23 History Divalproex ER [Depakote ER] 250 mg PO HS 03/25/19 03/21/23 History Docusate [Colace] 100 mg PO DAILY PRN 03/25/19 03/21/23 History Loratadine [Claritin] 10 mg PO DAILY 03/25/19 03/21/23 History lisinopriL [Zestril] 10 mg PO DAILY 03/25/19 03/21/23 History Cholecalciferol (Vitamin D3) 125 mcg PO DAILY 10/08/19 03/21/23 History [Vitamin D3] Metoclopramide [Reglan] 10 mg PO Q6H PRN #20 tab 11/16/22 03/21/23 Rx Ondansetron Odt [Zofran Odt] 4 mg PO Q8HR PRN #20 tab 11/16/22 03/21/23 Rx Pantoprazole [Protonix] 40 mg PO DAILY 14 Days #14 tab 11/16/22 03/21/23 Rx Ibuprofen [Motrin] 800 mg PO Q8HR PRN #30 tab 02/05/23 03/21/23 Rx Allergies Allergy/AdvReac Type Severity Reaction Status Date / Time acetaminophen Allergy Rash/Hives/ Verified 03/21/23 09:59 [From Darvocet-N] Nausea propoxyphene napsylate Allergy Rash/Hives/ Verified 03/21/23 09:59 [From Darvocet-N] Nausea aspirin AdvReac Nausea & Verified 03/21/23 09:59 Vomiting hydrocodone bitartrate AdvReac Nausea & Verified 03/21/23 09:59 [From Vicodin] Vomiting Surgical - Exam Vital Signs Temp Pulse Resp BP Pulse Ox 97.9 F 88 16 144/91 96 03/21/23 10:00 03/21/23 10:00 03/21/23 10:00 03/21/23 10:00 03/21/23 10:00 - General well developed, well nourished, no distress - Eyes PERRL - ENT normal pinna - Neck no masses - Respiratory normal expansion - Cardiovascular Rhythm: regular - Abdomen Abdomen: soft, non tender Hernia: inguinal (Recurrent right inguinal hernia) Assessment and Plan Assessment: Recurrent right inguinal hernia. We'll perform laparoscopic robotic system repair.
[2023-03-21] MEDS ORDERED: BUPIVACAINE (PF) 0.5% 30 ML VIAL SQ ONE ×2 (12:20)
--- NOTE | 2023-03-21 12:56 | P.OP ---
Date of Procedure: 03/21/23 Preoperative Diagnosis: Recurrent right inguinal hernia Postoperative Diagnosis: Recurrent right inguinal hernia Procedure(s) Performed: Laparoscopic robotic repair of right inguinal hernia Transversus abdominis plane block Anesthesia: VIRGIE Surgeon: Jono Yuan Estimated Blood Loss (ml): 5 Pathology: none sent Condition: stable Disposition: PACU Description of Procedure: Errol patient's placed on the operating table in the supine position. The patient received general anesthesia. The patient's abdomen was prepped and draped in usual sterile fashion. The skin was anesthetized 1% local Xylocaine at the incision sites. Using an 11 blade a skin incision was made at the umbilicus. The fascia was grasped with a Celi and then the peritoneal cavity was entered with the Veress needle. Position of the Veress needle was confirmed with a positive drop test. After adequate insufflation a 5 mm trocar was placed into the peritoneal cavity. The Laparoscope was placed the peritoneal cavity. And a robotic 8 mm trocar was placed in the right lateral position and then another 8 mm robotic trochars placed in the left lateral position. The original 5 mm trocar was exchanged for a 12 mm trocar. A four-quadrant transverse subcostal block was performed with 1% local Xylocaine. The patient was placed in reverse Trendelenburg and then the patient was docked to the robot. Next the peritoneum over top of the hernia was incised and then using blunt and sharp dissection and electrocautery the hernia sac was dissected free from the floor of the inguinal canal. The hernia sac was completely reduced into the peritoneal cavity. And then using the Pro fabrication and layout craftsman mesh the hernia was repaired. The peritoneum was then sutured with 20V lock suture. The patient was then undocked the robot. The needle was withdrawn from the peritoneal cavity. The umbilical trocar site was closed with 0 Ethibond suture. The skin was closed interrupted 3-0 Monocryl suture. Dermabond dressing was applied. Patient was sent to recovery in stable condition.
[2023-03-21] MEDS ORDERED: LACTATED RINGERS 1,000 ML IV ONE (13:00)
[2023-03-21 13:36] VITALS: TEMP 96.9
[2023-03-21 14:51] VITALS: BP 145/95; PULSE 85
== END 2023-03-21 15:12 | disposition home or self-care (01) ==
LOC: OR 08:37
PROVIDERS: ATTEND Surgery
DX: K40.91 Unilateral inguinal hernia, without obstruction or gangrene, recurrent (principal); F20.9 Schizophrenia, unspecified; F31.9 Bipolar disorder, unspecified; I10 Essential (primary) hypertension; K21.9 Gastro-esophageal reflux disease without esophagitis; F17.200 Nicotine dependence, unspecified, uncomplicated; Z88.5 Allergy status to narcotic agent; Z88.6 Allergy status to analgesic agent
CPT/HCPCS: 49651; 64488; S2900; 64999

== ENCOUNTER 2023-04-01 17:53 | Inpatient (IN) | payer MEDICARE, MEDICAID ==
[2023-04-01] MEDS ORDERED: lisinopriL 10 MG TAB PO STA (21:22)
[2023-04-01 21:53] LABS: Appearance,Urine Clear (Clear); Bilirubin,Urine Negative (Negative); Blood,Urine Negative (Negative); Color,Urine Colorless; Glucose,Urine (UA) Negative (Negative); Ketones,Urine Negative (Negative); Leukocyte Esterase,Urine Negative (Negative); Nitrite,Urine Negative (Negative); PH, Urine 5.5 (5.0-8.0); Protein,Urine Negative (Negative); Specific Gravity,Urine 1.011 (1.001-1.035); Urobilinogen,Urine <2.0 mg/dL (<2.0)
[2023-04-01 22:14] LABS: Amphetamine Screen,Urine Not Detected (NotDetected); Barbiturate Screen,Urine Not Detected (NotDetected); Benzodiazepines Screen,Urine Not Detected (NotDetected); Cocaine Screen,Urine Not Detected (NotDetected); Methadone Screen, Urine Not Detected (NotDetected); Opiate Screen,Urine Not Detected (NotDetected); Oxycodone Screen, Urine Not Detected (NotDetected); Phencyclidine Screen,Urine Not Detected (NotDetected); Tricyclic Antidepressant,Urine Not Detected (NotDetected); Urn Cannabinoid Scrn Not Detected (NotDetected)
[2023-04-01] MEDS ORDERED: KETOROLAC 15 MG/ML 1 ML VIAL IM STA (22:22)
--- NOTE | 2023-04-01 22:23 | ED ---
Psych HPI - General Chief Complaint: Psychiatric Symptoms Stated Complaint: Petition Time Seen by Provider: 04/01/23 17:55 Source: patient Mode of arrival: ambulatory - History of Present Illness Initial Comments: 52-year-old male with past history of schizophrenia who presents to the emergency department accompanied by police. It was reported that the patient was threatening another roommate. He had called police several times today in regards to him not getting along with other people in the apartment. Patient has not been taking his medications. Due to his homicidal ideations he is petitioned by police. He does admit to homicidal ideations. Denies suicidal ideations. No other alleviating, precipitating or modifying factors - Related Data Home Medications Medication Instructions Recorded Confirmed Divalproex ER [Depakote ER] 1,000 mg PO HS 02/19/14 04/01/23 Melatonin 1 mg PO HS 02/19/14 04/01/23 Docusate [Colace] 100 mg PO DAILY PRN 03/25/19 04/01/23 Loratadine [Claritin] 10 mg PO DAILY 03/25/19 04/01/23 Cholecalciferol (Vitamin D3) 125 mcg PO DAILY 10/08/19 04/01/23 [Vitamin D3] Albuterol Inhaler [Ventolin Hfa 2 puff INHALATION RT-QID 04/01/23 04/01/23 Inhaler] Cholestyramine/Aspartame 4 gm PO DAILY 04/01/23 04/01/23 [Cholestyramine Light Powder] Fluticasone Propionate [Flovent 2 puff INHALATION RT-QID 04/01/23 04/01/23 Hfa 220 mcg] Metoprolol Succinate (ER) [Toprol 50 mg PO DAILY 04/01/23 04/01/23 Xl] Omeprazole 20 mg PO BID 04/01/23 04/01/23 lisinopriL [Zestril] 20 mg PO DAILY 04/01/23 04/01/23 risperiDONE [RisperDAL] 4 mg PO HS 04/01/23 04/01/23 risperiDONE [Uzedy] 100 mg SQ Q28D 04/01/23 04/01/23 Previous Rx's Medication Instructions Recorded Acetaminophen Tab [Tylenol] 650 mg PO Q6H #30 tab 03/21/23 Docusate [Colace] 100 mg PO BID #20 capsule 03/21/23 Ibuprofen [Motrin] 600 mg PO Q6HR PRN #40 tab 03/21/23 oxyCODONE HCL [OxyIR] 5 mg PO Q6H PRN 3 Days #10 tab 03/21/23 Allergies Allergy/AdvReac Type Severity Reaction Status Date / Time acetaminophen Allergy Rash/Hives/ Verified 04/01/23 21:17 [From Darvocet-N] Nausea propoxyphene napsylate Allergy Rash/Hives/ Verified 04/01/23 21:17 [From Darvocet-N] Nausea aspirin AdvReac Nausea & Verified 04/01/23 21:17 Vomiting hydrocodone bitartrate AdvReac Nausea & Verified 04/01/23 21:17 [From Vicodin] Vomiting Review of Systems ROS Statement: Those systems with pertinent positive or pertinent negative responses have been documented in the HPI. ROS Other: All systems not noted in ROS Statement are negative. Past Medical History Past Medical History: GERD/Reflux, Hypertension, Sleep Apnea/CPAP/BIPAP History of Any Multi-Drug Resistant Organisms: None Reported Past Surgical History: Hernia Repair, Orthopedic Surgery Additional Past Surgical History / Comment(s): lt hip and knee surgery as a child Past Anesthesia/Blood Transfusion Reactions: No Reported Reaction Past Psychological History: Bipolar, Schizophrenia Smoking Status: Current every day smoker Past Alcohol Use History: None Reported Past Drug Use History: None Reported General Exam Limitations: no limitations General appearance: alert, in no apparent distress Head exam: Present: atraumatic, normocephalic, normal inspection Eye exam: Present: normal appearance, PERRL, EOMI. Absent: scleral icterus, conjunctival injection, periorbital swelling ENT exam: Present: normal exam, mucous membranes moist Neck exam: Present: normal inspection. Absent: tenderness, meningismus, lymphadenopathy Respiratory exam: Present: normal lung sounds bilaterally. Absent: respiratory distress, wheezes, rales, rhonchi, stridor Cardiovascular Exam: Present: regular rate, normal rhythm, normal heart sounds. Absent: systolic murmur, diastolic murmur, rubs, gallop, clicks GI/Abdominal exam: Present: soft, normal bowel sounds. Absent: distended, tenderness, guarding, rebound, rigid Extremities exam: Present: normal inspection, full ROM, normal capillary refill. Absent: tenderness, pedal edema, joint swelling, calf tenderness Back exam: Present: normal inspection Neurological exam: Present: alert, oriented X3, CN II-XII intact Psychiatric exam: Present: normal affect, normal mood Skin exam: Present: warm, dry, intact, normal color. Absent: rash Course Vital Signs 04/01/23 04/01/23 17:54 20:52 Temperature 98 F Pulse Rate 118 H Respiratory 18 Rate Blood Pressure 167/130 153/97 O2 Sat by Pulse 98 Oximetry Medical Decision Making - Medical Decision Making Was pt. sent in by a medical professional or institution (, PA, [facility], urgent care, hospital, or assisted...) When possible be specific @ -Police Did you speak to anyone other than the patient for history (EMS, parent, family, police, friend...)? What history was obtained from this source @ -Police Did you review nursing and triage notes (agree or disagree)? Why? @ -I reviewed and agree with nursing and triage notes Were old charts reviewed (outside hosp., previous admission, EMS record, old EKG, old radiological studies, urgent care reports/EKG's, assisted records)? Report findings @ -No old charts were reviewed Differential Diagnosis (chest pain, altered mental status, abdominal pain women, abdominal pain men, vaginal bleeding, weakness, fever, dyspnea, syncope, headache, dizziness, GI bleed, back pain, seizure, CVA, palpatations, mental health, musculoskeletal)? @ -Differential Mental Health Depression, anxiety, bipolar, psychosis, schizophrenia, borderline personality, situational depression, adjustment disorder, behavioral disorder, brain tumor, malingering, substance abuse, encephalopathy, medication reaction, dementia, hypothyroidism, degenerative neurologic disorder, lupus.... This is not meant to be all-inclusive list EKG interpreted by me (3pts min.). @ -Not done X-rays interpreted by me (1pt min.). @ -None done CT interpreted by me (1pt min.). @ -None done U/S interpreted by me (1pt. min.). @ -None done What testing was considered but not performed or refused? (CT, X-rays, U/S, labs)? Why? @ -None What meds were considered but not given or refused? Why? @ -None Did you discuss the management of the patient with other professionals (professionals i.e. , PA, [facility], lab, RT, psych nurse, social services technician, director park, teacher, protection officer, onsite case manager)? Give summary @ -EPS nurse Was smoking cessation discussed for >3mins.? @ -No Was critical care preformed (if so, how long)? @ -No Were there social determinants of health that impacted care today? How? (Homelessness, low income, unemployed, alcoholism, drug addiction, transportation, low edu. Level, literacy, decrease access to med. care, prison, rehab)? @ -Patient lives in an apartment with other mental health patient's Was there de-escalation of care discussed even if they declined (Discuss DNR or withdrawal of care, Hospice)? DNR status @ -No What co-morbidities impacted this encounter? (DM, HTN, Smoking, COPD, CAD, Cancer, CVA, ARF, Chemo, Hep., AIDS, mental health diagnosis, sleep apnea, morbid obesity)? @ -Schizophrenia Was patient admitted / discharged? Hospital course, mention meds given and route, prescriptions, significant lab abnormalities, going to OR and other pertinent info. @ -Admitted to the psychiatric unit. Patient is petitioned by police. Certification as filled out by myself. EPS feels that the patient needs to be admitted due to noncompliance. Patient was agreeable to this Undiagnosed new problem with uncertain prognosis? @ -No Drug Therapy requiring intensive monitoring for toxicity (Heparin, Nitro, Insulin, Cardizem)? @ -No Were any procedures done? @ -No Diagnosis/symptom? @ -Acute homicidal threats, medication noncompliance Acute, or Chronic, or Acute on Chronic? @ -Acute Uncomplicated (without systemic symptoms) or Complicated (systemic symptoms)? @ -Complicated Side effects of treatment? @ -No Exacerbation, Progression, or Severe Exacerbation? @ -No Poses a threat to life or bodily function? How? (Chest pain, [place], [place], pneumonia, PE, COPD, DKA, ARF, appy, cholecystitis, CVA, Diverticulitis, Homicidal, Suicidal, threat to staff... and all critical care pts) @ -No - Lab Data Lab Results 04/01/23 Range/Units 21:38 Urine Color Colorless Urine Appearance Clear (Clear) Urine pH 5.5 (5.0-8.0) Ur Specific [place] 1.011 (1.001-1.035) Urine Protein Negative (Negative) Urine Glucose (UA) Negative (Negative) Urine Ketones Negative (Negative) Urine Blood Negative (Negative) Urine Nitrite Negative (Negative) Urine Bilirubin Negative (Negative) Urine Urobilinogen <2.0 (<2.0) mg/dL Ur Leukocyte Esterase Negative (Negative) Urine Opiates Screen Not Detected (NotDetected) Ur Oxycodone Screen Not Detected (NotDetected) Urine Methadone Screen Not Detected (NotDetected) Ur Barbiturates Screen Not Detected (NotDetected) U Tricyclic Antidepress Not Detected (NotDetected) Ur Phencyclidine Scrn Not Detected (NotDetected) Ur Amphetamines Screen Not Detected (NotDetected) U Methamphetamines Scrn Not Detected (NotDetected) U Benzodiazepines Scrn Not Detected (NotDetected) Urine Cocaine Screen Not Detected (NotDetected) U Marijuana (THC) Screen Not Detected (NotDetected) Ur Drug Screen Comment SEE COMMENT Disposition Clinical Impression: Homicidal behavior Disposition: TRANSFER TO PSYCH HOSP/UNIT Condition: Stable Is patient prescribed a controlled substance at d/c from ED?: No Referrals: None,Stated [Primary Care Provider] - 1-2 days
[2023-04-01] MEDS ORDERED: LORazepam 1 MG TAB PO PRN (22:50)
[2023-04-01] MEDS ORDERED: risperiDONE 2 MG TAB PO SCH (23:00)
[2023-04-01] MEDS ORDERED: DIVALPROEX ER 500 MG TAB.ER.24H PO SCH (23:00)
[2023-04-02] MEDS ORDERED: haloperidoL 5 MG TAB PO PRN
[2023-04-02 00:52] VITALS: BP 142/92; PULSE 95; RESP 16; TEMP 97.8
[2023-04-02 07:58] LABS: Basophils % (A) 1 %; Eosinophils # (A) 0.3 k/uL (0-0.7); Eosinophils % (A) 3 %; HCT 46.5 % (39.0-53.0); HGB 15.5 gm/dL (13.0-17.5); Lymphocytes # (A) 2.4 k/uL (1.0-4.8); Lymphocytes % (A) 32 %; MCH 30.8 pg (25.0-35.0); MCHC 33.3 g/dL (31.0-37.0); MCV 92.6 fL (80.0-100.0); Mean Platelet Volume 8.6; Monocytes # (A) 0.4 k/uL (0-1.0); Monocytes % (A) 6 %; Neutrophils # (A) 4.2 k/uL (1.3-7.7); Neutrophils % (A) 56 %; Platelet Count 328 k/uL (150-450); RBC 5.02 m/uL (4.30-5.90); RDW 12.4 % (11.5-15.5); WBC 7.5 k/uL (3.8-10.6)
[2023-04-02] MEDS: ALBUTEROL INHALER 60 PUFF/8 GM INHALER (MHU) INHALATION SCH ×2 (08:41→13:03)
[2023-04-02] MEDS ORDERED: CHOLECALCIFEROL 125 MCG (5000 IU) TABLET PO SCH (09:00)
[2023-04-02] MEDS ORDERED: lisinopriL 20 MG TAB PO SCH (09:00)
[2023-04-02] MEDS ORDERED: NICOTINE 14MG/24HR PATCH TRANSDERM SCH (09:00)
[2023-04-02] MEDS ORDERED: MAGNESIUM HYDROXIDE 2,400 MG/30 ML CUP PO PRN (09:00)
[2023-04-02] MEDS ORDERED: PANTOPRAZOLE 40 MG TABLET PO SCH (09:00)
[2023-04-02 10:40] LABS: ALT 26 U/L (4-49); AST 25 U/L (17-59); African American GFR (CKD) >90 (>60 ml/min/1.73 sqM); Albumin 4.4 g/dL (3.5-5.0); Alkaline Phosphatase 64 U/L (38-126); Anion Gap 13 mmol/L; Blood Urea Nitrogen 10 mg/dL (9-20); Calcium 9.6 mg/dL (8.4-10.2); Carbon Dioxide 25 mmol/L (22-30); Chloride 100 mmol/L (98-107); Glucose 105 mg/dL (74-99); Non-African American GFR(CKD) >90 (>60 ml/min/1.73 sqM); Potassium 4.5 mmol/L (3.5-5.1); Sodium 138 mmol/L (137-145); Total Bilirubin 0.6 mg/dL (0.2-1.3); Total Protein 7.6 g/dL (6.3-8.2)
[2023-04-02 13:58] LABS: LDL Cholesterol,Calculated 74.2 mg/dL (0.0-131.0)
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
== END 2023-04-02 14:23 | disposition home or self-care (01) | DRG 885 ==
LOC: EC 17:53 → 3MHU 22:40 → EEVIPCON 22:40
PROVIDERS: ADMIT Psychiatry & Neurology Psychiatry; ATTEND Psychiatry & Neurology Psychiatry
DX: F29 Unspecified psychosis not due to a substance or known physiological condition (principal); R45.850 Homicidal ideations; Z91.148 Patient's other noncompliance with medication regimen for other reason; F31.9 Bipolar disorder, unspecified; F20.9 Schizophrenia, unspecified; F17.200 Nicotine dependence, unspecified, uncomplicated; Z79.51 Long term (current) use of inhaled steroids
CPT/HCPCS: 80053; 80061; 80306; 81003; 82075; 83036; 85025; 87635; 96372; 99285